=== PATIENT | female | born 1950 | race Caucasian/White ===

== ENCOUNTER 2016-09-27 10:11 | Outpatient (CLI) ==
[2015-02-17 15:50] VITALS: BMI 14.3
--- NOTE | 2016-09-27 14:22 | MRI ---
EXAM: MRI of the left knee without contrast COMPARISON: None available. HISTORY: Left knee pain. No known injury. TECHNIQUE: Multiplanar noncontrast MR images of the left knee were acquired using a 1.5 Zeny magne t. Several sequences are mildly limited by patient motion artifact. FINDINGS: There is intrasubstance degeneration of the medial meniscus. Overall diminished size of the medial meniscus with some blunting irregularity the free edge of the body through the posterior horn related to a tear with degenerative component. Flap component of the tear extending to the per ipheral portion of the extruded body with meniscal tissue extending 3 mm into the inferior recess. Intrasubstance degeneration without a tear involving the lateral meniscus. Scarring related to a chronic sprain of the anterior cruciate ligament with mild thinning of the fib ers are intact fibers are identified. Posterior cruciate ligament is intact. Sprain with scarring of the medial collateral ligament. The lateral collateral ligament complex and posterolateral corne r ligaments are intact. Mild distal quadriceps tendinosis. The patellar tendon is intact. No abno rmal subluxation of the patella. Subcutaneous edema anteriorly. Thinning of the medial patellar re tinaculum complex related to an old injury. Moderate thinning and irregularity of the cartilage of the trochlear groove within the patellofemora l compartment as well as moderate thinning of the patella with fibrillation along the median ridge. Full-thickness cartilage defects on both sides of the joint in the medial compartment. Thinning of the cartilage of the lateral tibial plateau most pronounced along the medial articular surface. No evidence of an acute fracture. Moderate sized joint effusion with thin internal septations througho ut the suprapatellar bursa. Edema involving Hoffa's fat pad suggesting nonspecific synovitis. Slit -like popliteal cyst. IMPRESSION: 1. Tricompartmental osteoarthrosis with most severe changes in the medial compartment. 2. Moderate joint effusion with synovitis, nonspecific. Consider aspiration if clinically warrante d. Slit-like popliteal cyst. 3. Complex tear of the medial meniscus with flap formation. Extrusion of the body related to loss of hoop containment. 4. Scarring related to a chronic sprain of the anterior cruciate ligament with mild thinning of the ligament fibers. Intact fibers are identified. Sprain with scarring of the medial collateral liga ment. 5. Mild distal quadriceps tendinosis. Subcutaneous edema anteriorly. Old injury of the medial pat ellar retinaculum complex.
== END 2016-09-27 10:12 | disposition home or self-care (01) ==
LOC: RAD 10:11
PROVIDERS: ATTEND Internal Medicine
DX: M25.562 Pain in left knee (principal)

== ENCOUNTER 2016-10-15 09:12 | Day surgery (SDC) ==
[2015-02-17 15:50] VITALS: BMI 14.3
[2016-10-15] MEDS ORDERED: LIDOCAINE 1% 20 ML MDV ONE (10:04)
[2016-10-15] MEDS ORDERED: LIDOCAINE 1% 20 ML MDV ID ONE (10:04)
[2016-10-15] MEDS ORDERED: DIPRIVAN 20 ML VIAL IVP ONE (11:20)
[2016-10-15] MEDS ORDERED: VERSED ONE (11:20)
[2016-10-15 12:45] VITALS: BP 120/62; TEMP 97.6
--- NOTE | 2016-10-16 12:48 | OP ---
INDICATIONS FOR PROCEDURE: 66-year-old female presents for colonoscopy exam. She has a remote history of polyps. Her brother had colon cancer before age 60. She is scheduled for colonoscopy. MEDICATIONS: SEE ANESTHESIA NOTES. PROCEDURE: COLONOSCOPY. REPORT: The risks, benefits, alternatives and limitations were discussed in detail with the patient. Informed consent was obtained. After adequate sedation was achieved, a digital rectal exam revealed good tone, no masses. The colonoscope was introduced into the rectum and advanced under direct visual guidance to the cecum. The cecum was identified by the appendiceal orifice and IC valve. I then slowly withdrew the scope in a circumferential manner examining the mucosa quite carefully. I looked on the proximal and distal side of folds and flexures as best as possible. I was able to retroflex the scope in the right colon and left colon to increase visualization. She had small and large mouth diverticula scattered throughout the entire colon. No other abnormalities noted including on retroflex view of the anal canal. The prep was good. The withdrawal time was 9 minutes and 20 seconds. The patient tolerated the procedure well with stable vital signs and pulse oximetry throughout. IMPRESSION: 1. PANIAGUA DIVERTICULOSIS RECOMMENDATION: 1. High fiber diet. 2. Office visit as needed. 3. Colonoscopy examination again in 5 years, sooner if she would have any signs or symptoms to indicate otherwise. CC: DR. JOSÉ LUIS WATERS
== END 2016-10-15 12:54 | disposition home or self-care (01) ==
LOC: SURG 09:12
PROVIDERS: ATTEND Internal Medicine Gastroenterology
DX: Z09 Encounter for follow-up examination after completed treatment for conditions other than malignant neoplasm (principal); Z86.010 Personal history of colon polyps; Z80.0 Family history of malignant neoplasm of digestive organs; K57.30 Diverticulosis of large intestine without perforation or abscess without bleeding; E11.9 Type 2 diabetes mellitus without complications
CPT/HCPCS: 00810; G0105; 82962

== ENCOUNTER 2017-04-28 12:07 | Inpatient (IN) ==
[2017-04-28] MEDS ORDERED: NITROSTAT SL PRN (12:20)
[2017-04-28] MEDS ORDERED: MORPHINE 4 MG/ML VIAL IVP PRN (12:20)
[2017-04-28] MEDS ORDERED: VISTARIL INJ IM PRN (12:20)
[2017-04-28] MEDS ORDERED: ATROPINE SULFATE PFS IVP PRN (12:20)
[2017-04-28] MEDS ORDERED: TYLENOL PO PRN (12:20)
[2017-04-28 13:05] LABS: BASOPHILS % (AUTO) 0.2 % (0.0-3.0); EOSINOPHILS # (AUTO) 0.3 K/ul (0.0-0.7); HEMATOCRIT 35.2 % (37.0-47.0); HEMOGLOBIN 11.9 g/dl (12.0-16.0); IMMATURE GRANULOCYTE % (AUTO) 0.3 % (0.0-5.0); LYMPHOCYTES # (AUTO) 1.5 K/uL (0.60-3.4); LYMPHOCYTES % (AUTO) 12.5 (10.0-50.0); MEAN CORPUSCULAR HEMOGLOBIN 30.1 pg (27.0-31.0); MEAN CORPUSCULAR HGB CONC 33.8 (31.8-35.4); MEAN CORPUSCULAR VOLUME 88.9 fl (81.0-99.0); MONOCYTES # (AUTO) 1.1 K/uL (0.4-2.0); MONOCYTES % (AUTO) 8.7 (0-10); NEUTROPHILS # (AUTO) 9.4 K/ul (2.0-6.9); NEUTROPHILS % (AUTO) 76.3; PLATELET COUNT 309 10^3/uL (140-440); RED BLOOD COUNT 3.96 10^6/ul (4.20-5.40); WHITE BLOOD COUNT 12.31 K/ul (4.6-10.2)
[2017-04-28 13:28] VITALS: BMI 29.0
[2017-04-28 13:35] LABS: ALBUMIN 3.4 g/dL (3.4-5.0); ALBUMIN/GLOBULIN RATIO 0.94; ANION GAP 13.1; BILIRUBIN,TOTAL 0.75 mg/dL (0.00-1.20); BUN/CREATININE RATIO 8.47; CALCIUM 9.7 mg/dL (8.2-10.2); CREATININE 1.77 mg/dL (0.60-1.30); POTASSIUM 3.1 mmol/L (3.5-5.10)
[2017-04-28] MEDS: DEXTROSE 5%-1/2NS IV SOLUTION 1,000 ML IV SCH (14:25)
[2017-04-28] MEDS: TORADOL IVP SCH ×2 (14:26→20:27)
[2017-04-28] MEDS: SOLU-CORTEF 250 MG IVP SCH ×2 (14:26→20:27)
[2017-04-28] MEDS: ZITHROMAX PO SCH (14:27)
[2017-04-28] MEDS: ROCEPHIN 1 GM in SODIUM CHLORIDE 50 ML IV SCH (14:29)
--- NOTE | 2017-04-28 14:50 | DI ---
EXAM: Chest two views HISTORY: Cough COMPARISON: 02/17/2015 TECHNIQUE: Two views of the chest were performed FINDINGS: The lungs are clear. There is no pleural effusion or pneumothorax. The heart is mildly e nlarged and unchanged in size. The mediastinal contour is normal. There are no acute abnormalities of the bones. IMPRESSION: Cardiomegaly. No acute cardiopulmonary process.
[2017-04-28] MEDS ORDERED: ULTRAM PO PRN (16:16)
[2017-04-28] MEDS: XOPENEX 1.25 MG NEB SCH ×2 (16:55→23:10)
[2017-04-28] MEDS: K-DUR PO SCH (17:14)
[2017-04-28 19:32] LABS: ADD URINE MICROSCOPIC NO; BILIRUBIN,URINE Negative (NEGATIVE); KETONES,URINE Negative (NEGATIVE); LEUKOCYTE ESTERASE ,URINE Negative (NEGATIVE); NITRITE,URINE Negative (NEGATIVE); PH,URINE 6.5 (5-9); PROTEIN,URINE Negative (NEGATIVE); URINE, BLOOD Negative (NEGATIVE)
[2017-04-28] MEDS: CARDIZEM PO SCH (20:28)
[2017-04-28] MEDS: CATAPRES PO SCH (20:28)
[2017-04-28] MEDS: ELIQUIS PO SCH (20:29)
[2017-04-28] MEDS ORDERED: NON-FORMULARY MEDICATION (Clonidine Hcl [Clonidine Hcl] 0.1 MG) PO SCH (21:00)
[2017-04-29] MEDS: DEXTROSE 5%-1/2NS IV SOLUTION 1,000 ML IV SCH ×2 (03:47→16:45)
[2017-04-29 04:42] LABS: BASOPHILS % (AUTO) 0.1 % (0.0-3.0); EOSINOPHILS % (AUTO) 0.1 % (0.0-7.0); HEMOGLOBIN 10.5 g/dl (12.0-16.0); IMMATURE GRANULOCYTE % (AUTO) 0.4 % (0.0-5.0); LYMPHOCYTES # (AUTO) 0.9 K/uL (0.60-3.4); LYMPHOCYTES % (AUTO) 8.1 (10.0-50.0); MEAN CORPUSCULAR HGB CONC 33.9 (31.8-35.4); MEAN CORPUSCULAR VOLUME 88.6 fl (81.0-99.0); MONOCYTES # (AUTO) 0.4 K/uL (0.4-2.0); MONOCYTES % (AUTO) 3.5 (0-10); NEUTROPHILS % (AUTO) 87.8; PLATELET COUNT 306 10^3/uL (140-440); WHITE BLOOD COUNT 11.37 K/ul (4.6-10.2)
[2017-04-29 05:03] LABS: ALBUMIN/GLOBULIN RATIO 0.91; ANION GAP 12.3; BILIRUBIN,TOTAL 0.32 mg/dL (0.00-1.20); BUN/CREATININE RATIO 10.32; CALCIUM 9.2 mg/dL (8.2-10.2); CREATININE 1.55 mg/dL (0.60-1.30); POTASSIUM 3.3 mmol/L (3.5-5.10); TOTAL PROTEIN 6.3 g/dL (5.8-8.1)
[2017-04-29] MEDS: XOPENEX 1.25 MG NEB SCH ×4 (05:35→23:07)
[2017-04-29] MEDS: TORADOL IVP SCH ×3 (05:50→20:15)
[2017-04-29] MEDS: PRILOSEC PO SCH (05:50)
[2017-04-29] MEDS: SOLU-CORTEF 250 MG IVP SCH ×3 (05:50→20:16)
[2017-04-29] MEDS ORDERED: NON-FORMULARY MEDICATION (Losartan/Hydrochlorothiazide [Hyzaar 100-25 Tablet] 1 EACH) PO SCH (09:00)
[2017-04-29] MEDS ORDERED: NON-FORMULARY MEDICATION (Paroxetine Hcl [Paxil] 30 MG) PO SCH ×22 (09:00)
[2017-04-29] MEDS: ROCEPHIN 1 GM in SODIUM CHLORIDE 50 ML IV SCH (09:14)
[2017-04-29] MEDS: HYZAAR 50-12.5 MG TAB PO SCH (09:14)
[2017-04-29] MEDS: LIPITOR PO SCH (09:14)
[2017-04-29] MEDS: CARDIZEM PO SCH ×2 (09:15→20:15)
[2017-04-29] MEDS: ZITHROMAX PO SCH (09:15)
[2017-04-29] MEDS: ASPIRIN EC PO SCH (09:15)
[2017-04-29] MEDS: CATAPRES PO SCH ×2 (09:15→20:15)
[2017-04-29] MEDS: KLONOPIN PO SCH (09:15)
[2017-04-29] MEDS: K-DUR PO SCH ×2 (09:15→16:45)
[2017-04-29] MEDS: ELIQUIS PO SCH ×2 (09:15→20:15)
[2017-04-29] MEDS: PAXIL PO SCH (09:16)
[2017-04-29] MEDS ORDERED: MILK OF MAGNESIA PO STA (09:24)
[2017-04-29] MEDS: XANAX PO SCH (20:15)
[2017-04-30] MEDS: XOPENEX 1.25 MG NEB SCH ×4 (05:16→22:26)
[2017-04-30 05:46] LABS: BASOPHILS % (AUTO) 0.1 % (0.0-3.0); HEMATOCRIT 29.1 % (37.0-47.0); IMMATURE GRANULOCYTE % (AUTO) 0.4 % (0.0-5.0); LYMPHOCYTES # (AUTO) 1.2 K/uL (0.60-3.4); LYMPHOCYTES % (AUTO) 7.5 (10.0-50.0); MEAN CORPUSCULAR HEMOGLOBIN 30.3 pg (27.0-31.0); MEAN CORPUSCULAR HGB CONC 34.4 (31.8-35.4); MEAN CORPUSCULAR VOLUME 88.2 fl (81.0-99.0); MONOCYTES # (AUTO) 0.5 K/uL (0.4-2.0); MONOCYTES % (AUTO) 3.2 (0-10); NEUTROPHILS # (AUTO) 13.9 K/ul (2.0-6.9); NEUTROPHILS % (AUTO) 88.8; PLATELET COUNT 317 10^3/uL (140-440); WHITE BLOOD COUNT 15.63 K/ul (4.6-10.2)
[2017-04-30] MEDS: SOLU-CORTEF 250 MG IVP SCH (05:46)
[2017-04-30] MEDS: PRILOSEC PO SCH (05:46)
[2017-04-30] MEDS: TORADOL IVP SCH ×3 (05:46→20:14)
[2017-04-30 06:18] LABS: ALBUMIN 2.9 g/dL (3.4-5.0); ALBUMIN/GLOBULIN RATIO 0.94; BILIRUBIN,TOTAL 0.18 mg/dL (0.00-1.20); BUN/CREATININE RATIO 14.15; CALCIUM 8.9 mg/dL (8.2-10.2); CREATININE 1.06 mg/dL (0.60-1.30)
[2017-04-30] MEDS: ROCEPHIN 1 GM in SODIUM CHLORIDE 50 ML IV SCH (08:51)
[2017-04-30] MEDS: CARDIZEM PO SCH ×2 (08:52→20:13)
[2017-04-30] MEDS: CATAPRES PO SCH ×2 (08:52→20:14)
[2017-04-30] MEDS: ASPIRIN EC PO SCH (08:52)
[2017-04-30] MEDS: ELIQUIS PO SCH ×2 (08:53→20:14)
[2017-04-30] MEDS: LIPITOR PO SCH (08:53)
[2017-04-30] MEDS: KLONOPIN PO SCH (08:53)
[2017-04-30] MEDS: K-DUR PO SCH ×5 (08:53→20:14)
[2017-04-30] MEDS: HYZAAR 50-12.5 MG TAB PO SCH (08:53)
[2017-04-30] MEDS: ZITHROMAX PO SCH (08:54)
[2017-04-30] MEDS: PAXIL PO SCH (08:54)
[2017-04-30 08:57] LABS: IMMATURE RETIC FRACTION 13.1; RETICULOCYTE % 2.75 %
[2017-04-30] MEDS: DEXTROSE 5%-1/2NS IV SOLUTION 1,000 ML IV SCH (09:50)
[2017-04-30 09:54] LABS: FERRITIN 98.99 ng/mL (4.63-204.00); FOLATE 13.1 ng/mL (3.1-20.5)
[2017-04-30] MEDS ORDERED: MYLANTA SUSP PO PRN (11:32)
--- NOTE | 2017-04-30 11:56 | PCM.PROG ---
Attending Provider: ATTENDING PROVIDER: Dr. CRISTINA ORDONEZ DATE OF SERVICE: 04/30/17 SUBJECTIVE: This 66 year old WHITE/ F was hospitalized 04/28/17. The patient is hospitalized with acute bronchitis/pneumonitis. Condition has improved remarkably and is feeling better. She still has harsh breath sounds with mild cough. REVIEW OF SYSTEMS: CONSTITUTIONAL: No night sweats. No fatigue, malaise, lethargy. No fever or chills. HEENT: Eyes: No visual changes. No eye pain. No eye discharge. ENT: No runny nose. No epistaxis. No sinus pain. No odynophagia. No congestion. RESPIRATORY: Mild cough and congestion. No hemoptysis. No shortness of breath. CARDIOVASCULAR: No angina symptoms. No CHF symptoms. No atypical chest pain for CAD. No palpitations. No orthopnea.. GASTROINTESTINAL: No abdominal pain. No nausea or vomiting. No diarrhea or constipation. No hematemesis. No hematochezia. GENITOURINARY: No urgency. No frequency. No dysuria. No hematuria. No obstructive symptoms. No discharge. No pain. No significant abnormal bleeding. MUSCULOSKELETAL: No musculoskeletal pain; no joint swelling. NEUROLOGICAL: Awake, alert, oriented to time, place and person. No headache. No neck pain. No syncope. No seizures. No dizziness. PSYCHIATRIC: Not anxious. No depression. No suicidal thoughts. No homicidal thoughts. SKIN: No rash. No lesions. No wounds. ENDOCRINE: No unexplained weight loss. No weight gain. HEMATOLOGIC/LYMPHATIC: No anemia. No purpura. No petechiae. No prolonged or excessive bleeding. No palpable lymph nodes. PHYSICAL EXAMINATION: GENERAL: The patient is awake, alert and oriented, lying in bed in no distress. VITAL SIGNS: Temperature 98.6 F, Pulse 53, Respiratory Rate 16, BP 133/67, Pulse Ox 99% HEENT: Head normocephalic, atraumatic. Eyes: Extraocular muscles are intact. Pupils are equal, round and reactive to light and accommodation. Ears: No lesions. Nose appeared normal. Throat: No exudate or erythema. NECK: Supple. No JVD, no carotid bruit. No lymphadenopathy or thyromegaly. LUNGS: Decreased breath sounds, harsh. Clear to auscultation. Percussion note normal. Chest symmetrical. HEART: S1, S2, no S3. No murmurs. No cyanosis or clubbing. No ascites. Pulses: Dorsalis pedis and posterior tibial pulses +1 to +2 both sides. ABDOMEN: Soft. Non-tender. Bowel sounds active. No CVA tenderness. No mass felt. EXTREMITIES: No edema. Full range of motion of all extremities, equal. NEUROLOGIC: No focal deficit. Cranial nerves II through XII are grossly intact. No headache, no double vision or headache. SKIN: Not dry. Intact. Turgor-normal. LYMPHATIC: No palpable lymph nodes/no lymphedema. MUSCULOSKELETAL: Normal joints with no swelling. Muscle tone is normal. LAB REVIEW: 04/30/17 04:15 04/30/17 04:15 04/30/17 04:15: Sodium 139, Potassium 3.0 L, Chloride 104, Carbon Dioxide 26, Anion Gap 12.0, BUN 15, Creatinine 1.06, Estimated GFR (MDRD) 52.00, BUN/ Creatinine Ratio 14.15, Glucose 161 H, Calcium 8.9, Total Bilirubin 0.18, AST 11 L, ALT 12, Alkaline Phosphatase 85, Total Protein 6.0, Albumin 2.9 L, Globulin 3.1, Albumin/Globulin Ratio 0.94 04/30/17 04:15: WBC 15.63 H, RBC 3.30 L, Hgb 10.0 L, Hct 29.1 L, MCV 88.2, MCH 30.3, MCHC 34.4, RDW Coeff of Zahraa 13.1, Plt Count 317, Immature Gran % (Auto) 0.4, Neut % (Auto) 88.8, Lymph % (Auto) 7.5 L, Bowman % (Auto) 3.2, Eos % (Auto) 0.0, Baso % (Auto) 0.1, Immature Gran # (Auto) 0.1, Neut # 13.9 H, Lymph # 1.2, Bowman # 0.5, Eos # 0.0, Baso # 0.0 ASSESSMENT: 1. Acute bronchitis/pneumonitis resolving 2. Dehydration resolved 3. Pleuritic pain resolved 4. Atrial fib paroxysmal 5. Anemia 6. Left breast cancer with mastectomy PLAN: 1. Continue antibiotics 2. Nebs treatment 3. Anemia profile 4. A1C 5. Hyperglycemia is from steroids 6. Increase potassium to q.i.d. and will change back tomorrow -20 mEq q.i.d. 7. D/C fluids IV 8. D/C IV steroids 9. Prednisone 10 mg p.o. b.i.d. . Plan and coordination of the patient's care discussed in the presence of Die Sinking Machine Operator and nurse. CONDITION: Stable SCRIBED BY: DEMETRI GONZALES Cable Weaver scribed while in presence of service performed by Dr. CRISTINA ORDONEZ on 04/30/17 ([id number])
[2017-04-30] MEDS: PREDNISONE PO SCH ×2 (13:07→17:17)
[2017-04-30] MEDS: XANAX PO SCH (20:13)
[2017-05-01 04:27] LABS: BASOPHILS % (AUTO) 0.1 % (0.0-3.0); HEMATOCRIT 29.8 % (37.0-47.0); HEMOGLOBIN 10.2 g/dl (12.0-16.0); IMMATURE GRANULOCYTE % (AUTO) 0.9 % (0.0-5.0); LYMPHOCYTES # (AUTO) 1.4 K/uL (0.60-3.4); LYMPHOCYTES % (AUTO) 9.6 (10.0-50.0); MEAN CORPUSCULAR HEMOGLOBIN 30.5 pg (27.0-31.0); MEAN CORPUSCULAR HGB CONC 34.2 (31.8-35.4); MEAN CORPUSCULAR VOLUME 89.2 fl (81.0-99.0); MONOCYTES # (AUTO) 0.6 K/uL (0.4-2.0); MONOCYTES % (AUTO) 4.4 (0-10); NEUTROPHILS # (AUTO) 12.4 K/ul (2.0-6.9); PLATELET COUNT 327 10^3/uL (140-440); RED BLOOD COUNT 3.34 10^6/ul (4.20-5.40); WHITE BLOOD COUNT 14.56 K/ul (4.6-10.2)
[2017-05-01 04:48] LABS: ALBUMIN/GLOBULIN RATIO 0.97; ANION GAP 10.9; BILIRUBIN,TOTAL 0.2 mg/dL (0.00-1.20); BUN/CREATININE RATIO 17.2; CALCIUM 9.1 mg/dL (8.2-10.2); CREATININE 0.93 mg/dL (0.60-1.30); POTASSIUM 3.9 mmol/L (3.5-5.10); TOTAL PROTEIN 6.1 g/dL (5.8-8.1)
[2017-05-01] MEDS: XOPENEX 1.25 MG NEB SCH ×2 (05:00→11:14)
[2017-05-01 05:07] VITALS: BP 153/90; TEMP 97.9
[2017-05-01] MEDS: PRILOSEC PO SCH (05:32)
[2017-05-01] MEDS: TORADOL IVP SCH (05:33)
[2017-05-01] MEDS: PREDNISONE PO SCH (08:29)
[2017-05-01] MEDS: ASPIRIN EC PO SCH (08:29)
[2017-05-01] MEDS: CARDIZEM PO SCH (08:29)
[2017-05-01] MEDS: CATAPRES PO SCH (08:29)
[2017-05-01] MEDS: ELIQUIS PO SCH (08:30)
[2017-05-01] MEDS: HYZAAR 50-12.5 MG TAB PO SCH (08:30)
[2017-05-01] MEDS: K-DUR PO SCH (08:31)
[2017-05-01] MEDS: KLONOPIN PO SCH (08:31)
[2017-05-01] MEDS: PAXIL PO SCH (08:31)
[2017-05-01] MEDS: LIPITOR PO SCH (08:31)
[2017-05-01] MEDS: ROCEPHIN 1 GM in SODIUM CHLORIDE 50 ML IV SCH (09:00)
--- NOTE | 2017-05-01 10:25 | PN ---
DATE OF SERVICE: 05/01/17 SUBJECTIVE: The patient was hospitalized with acute bronchitis, chronic lung disease and the patient also has atrial fibrillation. The patient's condition has improved to the point where she isn't coughing anymore. PHYSICAL EXAMINATION: HEENT: Head normocephalic, atraumatic. Eyes: Extraocular muscles are intact. Pupils are equal, round and reactive to light and accommodation. Ears: No lesions. Nose appeared normal. Throat: No exudate or erythema. NECK: Supple. No JVD, no carotid bruit. No lymphadenopathy or thyromegaly. LUNGS: Breath sounds are decreased bilaterally but no wheeze. Percussion note normal. Chest symmetrical. HEART: S1, S2, no S3. No murmurs. No cyanosis or clubbing. No ascites. Pulses: Dorsalis pedis and posterior tibial pulses +1 to +2 both sides. ABDOMEN: Soft. Nontender. Bowel sounds active. No CVA tenderness. No mass felt. EXTREMITIES: No edema. Full range of motion of all extremities, equal. NEUROLOGIC: No focal deficit. Cranial nerves II through XII are grossly intact. No headache, no double vision or headache. SKIN: Not dry. Intact. Turgor - normal. LYMPHATIC: No palpable lymph nodes/no lymphedema. MUSCULOSKELETAL: Normal joints with no swelling. Muscle tone is normal. LABS: The patient had an echocardiogram done 2DM mode showed LA cavity enlargement to 4.3cm otherwise the rest of the echo was normal. ASSESSMENT: 1. Acute bronchitis/pneumonia seems to have resolved PLAN: 1. Discharge home on Keflex, steroids and Tussionex 2. Advised to rest 3. Discussed about atrial fibrillation complications. She has been on Norvel blood thinners for a while. 4. The patient will be referred to Dr. Stacy at [facility] for further evaluation. CONDITION: Stable. TIME SPENT: More than 30 minutes. Plan and coordination of the patient's care discussed in the presence of nurse. EVELIN
--- NOTE | 2017-05-01 11:07 | CM.DICTOOL ---
ADMISSION: 04/28/17 12:07 DISCHARGE: May 01, 2017 DATE OF SERVICE: 05/01/17 FINAL DIAGNOSIS Acute Bronchitis/Pneumonitis, Right Pleuritic Chest Pain Hypertension Atrial Fibrillation, Paroxysmal (on Eliquis since 2014) CHF Dyslipidemia Dieverticulosis Cancer, Left Breast with Mastectomy Enlarged Left Atrial Cavity per Echocardiogram LAST VITALS Temp Pulse Resp BP Pulse Ox 97.9 F 60 16 153/90 H 95 05/01/17 05:07 05/01/17 05:07 05/01/17 05:07 05/01/17 05:07 05/01/17 05:07 ACTIVE HOME MEDICATIONS Apixaban (Eliquis) 5 mg PO BID [facility] Last Admin: 05/01/17 08:30 Dose: 5 mg Atorvastatin Calcium (Lipitor) 40 mg PO DAILY [facility] Last Admin: 05/01/17 08:31 Dose: 40 mg Clonazepam (Klonopin) 0.5 mg PO DAILY [facility] Last Admin: 05/01/17 08:31 Dose: 0.5 mg Clonidine (Catapres) 0.1 mg PO BID [facility] Last Admin: 05/01/17 08:29 Dose: 0.1 mg Diltiazem HCl (Cardizem) 120 mg PO Q12HR [facility] Last Admin: 05/01/17 08:29 Dose: 120 mg HCTZ/Losartan Potassium (Hyzaar 50-12.5 Mg Tab) 2 tab PO DAILY [facility] Last Admin: 05/01/17 08:30 Dose: 2 tab Omeprazole (Prilosec) 20 mg PO QDAC [facility] Last Admin: 05/01/17 05:32 Dose: 20 mg Paroxetine HCl (Paxil) 30 mg PO DAILY [facility] Last Admin: 05/01/17 08:31 Dose: 30 mg Tramadol HCl (Ultram) 50 mg PO BID PRN PRN Reason: pain ALLERGIES amlodipine besylate [From [facility]] Adverse Reaction (Mild, Verified 02/17/15 15: 44) worsening HTN verapamil Adverse Reaction (Mild, Verified 02/17/15 15:43) worsening HTN NEW PRESCRIPTIONS: Keflex 500 mg TID for 7 days Prednisone 10 mg BID for 5 days Tussionex 5ml (1 tsp) BID for 5 days SMOKING: Not Applicable DISEASE SPECIFIC EDUCATION: Bronchitis Short term use of steroids with GI effects, bone demineralization discussed Prescriptions Appointment LAB REVIEW: 05/01/17 03:50 05/01/17 03:50 05/01/17 03:50: Sodium 140, Potassium 3.9, Chloride 106, Carbon Dioxide 27, Anion Gap 10.9, BUN 16, Creatinine 0.93, Estimated GFR (MDRD) 60.00, BUN/ Creatinine Ratio 17.20, Glucose 140 H, Calcium 9.1, Total Bilirubin 0.20, AST 13 L, ALT 14, Alkaline Phosphatase 82, Total Protein 6.1, Albumin 3.0 L, Globulin 3.1, Albumin/Globulin Ratio 0.97 05/01/17 03:50: WBC 14.56 H, RBC 3.34 L, Hgb 10.2 L, Hct 29.8 L, MCV 89.2, MCH 30.5, MCHC 34.2, RDW Coeff of Zahraa 13.3, Plt Count 327, Immature Gran % (Auto) 0.9, Neut % (Auto) 85.0, Lymph % (Auto) 9.6 L, Henry % (Auto) 4.4, Eos % (Auto) 0.0, Baso % (Auto) 0.1, Immature Gran # (Auto) 0.1, Neut # 12.4 H, Lymph # 1.4, Henry # 0.6, Eos # 0.0, Baso # 0.0 04/30/17 08:40: Transferrin 241 PLAN: Discharge home Diet: Heart Healthy Activity: Gradually Resume as tolerated Allow for frequent rest periods Continue medications as listed on nursing discharge information sheet An appointment is scheduled with Dr. Bajwa on May 07 at 1:15 pm. Mrs. Saldivar is alert and oriented x 3. She is independent with Activities of Daily Living and does not require any assistive devices with ambulation. She is ambulatory per self in the room and to the bathroom. Meal intakes have been good at 75-100%. She has been afebrile during her hospital stay. Oxygen saturation 95% on room air. Mrs. Saldivar does not show any signs of decubitus ulcers, rashes or skin irritation. Carlos Bajwa MD Lisa Swift APRN
--- NOTE | 2017-05-01 14:31 | PN ---
DATE OF SERVICE: 04/29/17 SUBJECTIVE: 66 year old white female hospitalized with acute bronchitis and pneumonitis. The patient's condition has steadily improved. She is still coughing and has got a croupy cough. REVIEW OF SYSTEMS: CONSTITUTIONAL: No night sweats. No fatigue, malaise, lethargy. No fever or chills. HEENT: Eyes: No visual changes. No eye pain. No eye discharge. ENT: No runny nose. No epistaxis. No sinus pain. No sore throat. No odynophagia. No congestion. RESPIRATORY: Cough and congestion. No hemoptysis. No shortness of breath. CARDIOVASCULAR: No angina symptoms. No CHF symptoms. No atypical chest pain for CAD. No palpitations. No orthopnea. Mild pleuritic pain. GASTROINTESTINAL: No abdominal pain. No nausea or vomiting. No diarrhea or constipation. No hematemesis. No hematochezia. GENITOURINARY: No urgency. No frequency. No dysuria. No hematuria. No obstructive symptoms. No discharge. No pain. No significant abnormal bleeding. MUSCULOSKELETAL: No musculoskeletal pain; no joint swelling. NEUROLOGICAL: No headache. No neck pain. No syncope. No seizures. No dizziness. PSYCHIATRIC: Not anxious. No depression. No suicidal thoughts. No homicidal thoughts. SKIN: No rash. No lesions. No wounds. ENDOCRINE: No unexplained weight loss. No weight gain. HEMATOLOGIC/LYMPHATIC: No anemia. No purpura. No petechiae. No prolonged or excessive bleeding. No palpable lymph nodes. PHYSICAL EXAMINATION: GENERAL: The patient is oriented to time, place and person VITAL SIGNS: Temperature 97.5, pulse 60,. respiratory rate 20, blood pressure 106/60 and pulse ox 98%. HEENT: Head normocephalic, atraumatic. Eyes: Extraocular muscles are intact. Pupils are equal, round and reactive to light and accommodation. Ears: No lesions. Nose appeared normal. Throat: No exudate or erythema. NECK: Supple. No JVD, no carotid bruit. No lymphadenopathy or thyromegaly. LUNGS: Mild wheeze. Clear to auscultation. Percussion note normal. Chest symmetrical. HEART: S1, S2, no S3. No murmurs. No cyanosis or clubbing. No ascites. Pulses: Dorsalis pedis and posterior tibial pulses +1 to +2 both sides. ABDOMEN: Soft. Nontender. Bowel sounds active. No CVA tenderness. No mass felt. EXTREMITIES: No edema. Full range of motion of all extremities, equal. NEUROLOGIC: No focal deficit. Cranial nerves II through XII are grossly intact. No headache, no double vision or headache. SKIN: Not dry. Intact. Turgor - normal. LYMPHATIC: No palpable lymph nodes/no lymphedema. MUSCULOSKELETAL: Normal joints with no swelling. Muscle tone is normal. ASSESSMENT: 1. Acute bronchitis 2. Paroxysmal atrial fibrillation 3. Hyperglycemia 4. Anemia PLAN: 1. Continue steroids, NEBS treatment and Antibiotics 2. The patient may need an echocardiogram to evaluate Cardiomegaly and also atrial fibrillation. 3. Anemia may need a work up. CONDITION: Stable The patient was seen and examined with Nurse Practitioner and Core Filer TIME SPENT: More than 30 minutes. Plan and coordination of the patient's care discussed in the presence of nurse. EVELIN
--- NOTE | 2017-05-02 12:02 | ECHO2D ---
Date of Exam: 05/01/17 Ordering Physician: CRISTINA ORDONEZ Room #: 110 Reason for Echo: CHEST PAIN M-Mode Normal Adult Results LV Dimensions Normal Adult Results AoV Opening excursions >1.6 >1.6 LVEDD-base- 3.5-5.8 5.4 Ao root dimensions 2.0-3.7 3.3 LVESD-base- 3.1-4.6 L. Atrium dimensions 1.9-3.8 4.2 Post. Wall thickness 0.8-1.1 1.2 IV septum (thickness) 0.7-1.2 1.0 Post. Wall excursion 0.72-1.3 NORMAL Septal motion NORMAL Systolic motion R. Ventricular cavity 1.5-2.0 NORMAL LVEF 60% 59% Paradoxical septal wall motion NORMAL 2-D : 2-D M Mode Echocardiogram was performed using apical four chamber and left parasternal long and short axis views. Mitral, tricuspid and aortic valves appear to be normal. Contractility of the left ventricle seems to be normal, so is the cavity size. Enlarged Left atrial cavity. Aortic root appears to be normal. There is no pericardial effusion. There is no thrombus noted in the left ventricular or left aortic cavity. No mitral valve prolapse noted. M-MODE: MV: NORMAL AV: NORMAL TV: NORMAL PV: CHAMBER SIZE: ENLARGED LEFT ATRIAL CAVITY WALL MOTION: NORMAL PERICARDIUM: NORMAL INTERPRETATION: 1. ENLARGED LEFT ATRIAL CAVITY--4.2 CM SIZE 2. NORMAL LEFT VENTRICULAR CONTRACTILITY 3. NORMAL VALVES MTDD
--- NOTE | 2017-05-02 13:37 | HP ---
DATE OF SERVICE: 04/28/17 HISTORY OF PRESENT ILLNESS: This is a 66-year-old female who was seen here on 04/16 with bronchitis Now she has pain and weakness, poor appetite, low grade temperature at home. She was treated with Keflex, Prednisone. No change with worsening of symptoms. PAST MEDICAL HISTORY: Atrial fibrillation CAD with LAD CHF DM II FATOU Depression History of breast cancer, left MENSTRUAL HISTORY: 1973 PAST SURGICAL HISTORY: Left breast (cancer) mastectomy T & A Hysterectomy REVIEW OF SYSTEMS: CONSTITUTIONAL: Fatigue. No fever, HEENT: Sinus drainage No sore throat. RESPIRATORY: Cough, No hemoptysis. CARDIOVASCULAR: Shortness of breath on minimal exertion.. Pleuritic pain. No atypical chest pain for coronary artery disease. No angina, CHF symptoms or palpitations. GASTROINTESTINAL: No melena or abdominal pain. No GERD. GENITOURINARY: No hematuria, no polyuria. SYSTEM PLANNING ENGINEER: No blackout, no dizziness, no headache, no double vision. MUSCULOSKELETAL: No osteoarthritis pain, no joint swelling. ENDOCRINE: No weight loss, no weight gain. SKIN: Warm and dry. No rash. PSYCHIATRIC: Not anxious, no depression, no suicidal thoughts, no homicidal thoughts. SOCIAL HISTORY: 46 years. children: 2 girls ages 47, 45. Retired. No drug use history. No smoking history. No alcohol use. FAMILY HISTORY: Father CAD, mother TIA, brother (6) three - one of colon cancer, 2nd of lung cancer, 3rd (baby) Scarlet fever, three living CAD and diabetes mellitus. Sisters (5) two - Alzheimer's, overdose. Three living Alzheimer's, hypertension, TIA. MEDICATIONS: Klonopin 0.5 mg daily Paxil 30 mg daily Eliquis 5 mg b.i.d. Diltiazem 60 mg b.i.d. Losartan/HCTZ 100/25 daily Clonidine 0.2 mg b.i.d. Atorvastatin 40 mg daily Tramadol 50 mg b.i.d. Omeprazole 20 mg b.i.d ALLERGIES: VERAPAMIL, NORVASC PHYSICAL EXAMINATION: V/S: Temperature 98.8, pulse 65, BP 118/66, 02 sat 94%, Weight 169.0, height 5' 3", BMI 29.9. GENERAL APPEARANCE: Oriented times three. Pallor positive. Weakness. Dry skin. HEENT: Normal. NECK: No JVP, no bruits. RESPIRATORY: Decreased breath sounds bilateral rhonchi with green sputum. CARDIOVASCULAR: Irregular. S1, S2, no S3, no murmurs. No cyanosis, clubbing. No ascites. GI/ABDOMEN: No tenderness. Bowel sounds are active. EXTREMITIES: No edema, pulses +1, equal. SYSTEM PLANNING ENGINEER: Deep tendon reflexes, sensory, motor and gait all normal. RECTAL/PELVIC: Colonoscopy 10/07 Dr. Chavez. Partial hysterectomy. Mammogram - left mastectomy, 09/06 right ultrasound. LABS: Potassium 3.1. The patient is already on supplements now for low potassium. Creatinine 1.7, BUN 15 indicating dehydration and chronic kidney disease. Liver profile is normal. Sodium 139, hemoglobin 11.9, hematocrit 35, WBC 12,300 with shift to the left. ASSESSMENT: 1. ACUTE BRONCHITIS/PNEUMONITIS (RIGHT) 2. PLEURITIC PAIN, BILATERAL 3. FEVER 4. ATRIAL FIBRILLATION ON ELIQUIS 5. CAD WITH LAD 6. CHF 7. DIABETES MELLITUS TYPE 2 WITH A1C 6.1 ON 02/06 8. OBESITY 9. FATOU 10. DEPRESSION 11. HISTORY OF BREAST CANCER, LEFT PLAN: 1. Continue all medications 2. Toradol 30 mg IV q.8h scheduled 3. Rocephin 1 gm IV daily 4. Routine telemetry orders - do not do troponin 5. CBC/CMP daily 6. Chest x-ray 7. Zithromax 500 mg p.o. daily times 3 days 8. Solu-Cortef 125 mg IV q.8h 9. Xopenex neb times q.6hr scheduled 10. Sputum for culture and sensitivity 11. D5 1/2 NS @ 75 cc/hr 12. Blood culture times two TIME SPENT: More than 70 minutes. MTDD
[2017-05-05 19:22] LABS: BACT ID RESULT 1 Micrococcus species (.); BACTERIA IDENTIFICATION Final report (.)
--- NOTE | 2017-05-06 09:23 | PN ---
DATE OF SERVICE: 05/01/17 - DISCHARGE NOTE SUBJECTIVE: The patient's condition is stable. She is discharged home. The patient had one out of four bottles positive with gram positive cocci. The patient is afebrile throughout. No fever, no chills. Sensitivity is still pending, I think it is colonization, will not disregard. The patient is to be followed as an outpatient in 3 to 4 days. Condition is stable. TIME SPENT: More than 30 minutes. Plan and coordination of the patient's care discussed in the presence of nurse. EVELIN
--- NOTE | 2017-05-09 15:50 | DS ---
DATE OF SERVICE: 05/01/17 FINAL DIAGNOSIS: 1. ACUTE BRONCHITIS/PNEUMONIA, RIGHT 2. PLEURITIC CHEST PAIN 3. HYPERTENSION 4. ATRIAL FIBRILLATION, PAROXYSMAL (ON ELIQUIS SINCE 2014) 5. CHF 6. DYSLIPIDEMIA 7. DIVERTICULOSIS 8. CANCER, LEFT BREAST WITH MASTECTOMY 9. ENLARGED LEFT ATRIAL CAVITY PER ECHOCARDIOGRAM DISCHARGE INSTRUCTIONS: Followup appointment: Dr. Bajwa on 05/07/17 at 1:15 p.m. MEDICATIONS AT DISCHARGE: Eliquis 5 mg p.o. b.i.d. [place] Lipitor 40 mg p.o. daily [place] Klonopin 0.5 mg p.o. daily [place] Catapres 0.1 mg p.o. b.i.d. [place] Cardizem 120 mg p.o. q.12h [place] Hyzaar 50-12.5 mg two tab p.o. daily [place] Prilosec 20 mg p.o. q.d a.c. [place] Paxil 30 mg p.o. daily Ultram 50 mg p.o. b.i.d. p.r.n. NEW PRESCRIPTIONS: Keflex 500 mg t.i.d. for 7 days Prednisone 10 mg b.i.d. for 5 days Tussionex 5 mL b.i.d. for 5 days DIET INSTRUCTIONS: Heart Healthy ACTIVITY: Gradually resume as tolerated; allow for frequent rest periods. SMOKING: N/A DISEASE SPECIFIC EDUCATION: Bronchitis Short term use of steroids with GI effects, bone dimineralization discussed Prescriptions Appointment HOSPITAL COURSE: This is a 66-year-old white female who was a direct admit from our office. She had been in the office approximately 10 days before and taking Keflex and Prednisone. She was experiencing a worsening cough yet still and now she was having pain radiating on her right side of chest through to her back. She had had a low grade fever at home, temperature highest of 100. She was subsequently admitted and placed on IV antibiotics. She was placed on Rocephin 1 gm IV daily along with Solu-Cortef 125 mg b.i.d. She was started on Xopenex neb treatments q.6hr and placed on Toradol 30 mg IV q.8hr due to pain. Her chest x-ray showed no pneumonia; however, bronchitis along with mild cardiomegaly so during the course of her stay, Dr. Bajwa performed an echo this morning before discharge. Her vital signs have remained stable. Temperature 97.9, heart rate 60, respirations 16, BP 150/88, today pulse ox 95%. She has been eating well and afebrile since admission. She states her cough is much better. She is no longer in any pain. She is not short of breath. She does have a history of anemia which has remained stable during her stay. Today on day of discharge hemoglobin 10.2, hematocrit 29.8, white count improved at 14.56. Kidney function normal. BUN 16, creatinine 0.93, sodium 140, potassium 3.9. For the past two days she has been eating 75 to 100% of her meals. She has been up and about in her chair. Her sputum culture was negative. UA was negative. Telemetry has been normal. She will be discharged home today with Keflex 500 mg t.i.d. for the next five days along with Prednisone 10 mg b.i.d. for the next five days. We will followup with her early next week in the office. TIME SPENT: More than 60 minutes. EVELIN
== END 2017-05-01 11:58 | disposition home or self-care (01) | DRG 202 ==
LOC: MEDSURG A 12:07
PROVIDERS: ADMIT Internal Medicine; ATTEND Internal Medicine
DX: J20.9 Acute bronchitis, unspecified (principal); R78.81 Bacteremia; R07.81 Pleurodynia; I10 Essential (primary) hypertension; I48.0 Paroxysmal atrial fibrillation; I50.9 Heart failure, unspecified; I51.7 Cardiomegaly; D64.9 Anemia, unspecified; E78.5 Hyperlipidemia, unspecified; K57.90 Diverticulosis of intestine, part unspecified, without perforation or abscess without bleeding; R73.9 Hyperglycemia, unspecified; Z79.01 Long term (current) use of anticoagulants; Z85.3 Personal history of malignant neoplasm of breast; Z90.12 Acquired absence of left breast and nipple
CPT/HCPCS: 36415; 80053; 81001; 82607; 82728; 82746; 83036; 83540; 83550; 84466; 85025; 85045; 87040; 87070; 87077; 87186; 93005; 93010; 94640

== ENCOUNTER 2017-10-08 12:25 | Inpatient (IN) ==
--- NOTE | 2017-10-08 14:15 | DI ---
EXAM: PA and lateral views of the chest HISTORY: Cough. COMPARISON: Chest x-ray 04/28/2017 FINDINGS: The cardiomediastinal silhouette is unchanged. There is no pneumothorax or pleural effusi on. There is new linear smudgy ground-glass in the left lateral mid lung. There is no discrete cons olidation. The osseous structures are stable. IMPRESSION: 1. Smudgy area of ground-glass in the lateral left lung likely representing focal area of small airw ays infection/pneumonia versus inflammation. 2. Stable cardiomegaly.
[2017-10-08] MEDS ORDERED: SOLU-MEDROL 125 MG IVP STA (14:24)
[2017-10-08] MEDS ORDERED: SOLU-CORTEF 250 MG IVP STA (14:25)
[2017-10-08] MEDS ORDERED: ROCEPHIN 1 GM in SODIUM CHLORIDE 50 ML IV STA (14:26)
[2017-10-08] MEDS ORDERED: ZITHROMAX 500 MG in SODIUM CHLORIDE 250 ML IV STA (14:27)
[2017-10-08] MEDS ORDERED: DEXTROSE 5%-NS IV SOLUTION 1,000 ML IV STA (14:28)
--- NOTE | 2017-10-08 14:30 | ED.PDOC ---
General ED Provider: Dr. ISH SALAZAR Chief Complaint: Weakness Stated Complaint: WEAKNESS/ NEAR SYNCOPE AT MD OFFICE Time Seen by Physician: 12:30 Mode of Arrival: Wheelchair Information Source: Patient Exam Limitations: No limitations Primary Care Provider: CRISTINA ORDONEZ Nursing and Triage Documentation Reviewed and Agree: Yes Reviewed sepsis parameters & appropriate labs ordered?: Yes (NO SYNCOPE NOTED BY HISTORY BUT BECAME WEAK ) System Inflammatory Response Syndrome: Not Applicable Sepsis Protocol: For patient's 13 years and over: Temp is 96.8 and below OR 101 and greater Pulse >90 BPM Resp >20/minute Acutely Altered Mental Status Are patient's symptoms suggestive of a new infection, such as: -Pneumonia -Skin, Soft Tissue -Endocarditis -UTI -Bone, Joint Infection -Implantable Device -Acute Abdominal Infection -Wound Infection -Meningitis -Blood Stream Catheter Infection -Unknown System Inflammatory Response Syndrome: Not Applicable Review of Systems - Review Of Systems Constitutional: Reports: Malaise, Weakness Eyes: Reports: No symptoms Ears, Nose, Mouth, Throat: Reports: No symptoms Respiratory: Reports: No symptoms Cardiac: Reports: Other (NEAR SYNCOPE) GI: Reports: No symptoms : Reports: No symptoms Musculoskeletal: Reports: No symptoms Skin: Reports: No symptoms Neurological: Reports: No symptoms Endocrine: Reports: No symptoms Hematologic/Lymphatic: Reports: No symptoms All Other Systems: Reviewed and Negative Past Medical History - Past Medical History Previously Healthy: No Endocrine: Reports: Dyslipidemia Cardiovascular: Reports: Hypertension Respiratory: Reports: None Hematological: Reports: None Gastrointestinal: Reports: GERD Genitourinary: Reports: None Neuro/Psych: Reports: None Musculoskeletal: Reports: None Cancer: Reports: None Last Menstrual Period: menopause - Surgical History General Surgical History: Reports: None - Family History Family History: Reports: None - Social History Smoking Status: Never smoker Hx Substance Use: No Alcohol Screening: None Physical Exam - Physical Exam Appearance: Ill-appearing Ill-appearing: Mild Eyes: JIM, EOMI, Conjunctiva clear ENT: Dry mucosa Respiratory: Airway patent, Breath sounds clear, Breath sounds equal, Respirations nonlabored Cardiovascular: RRR, Pulses normal, No rub, No murmur GI/: Soft, Nontender, No masses, Bowel sounds normal, No Organomegaly Musculoskeletal: Normal strength, ROM intact, No edema, No calf tenderness Skin: Warm, Dry, Normal color Neurological: Sensation intact, Motor intact, Reflexes intact, Cranial nerves intact, Alert, Oriented Psychiatric: Affect appropriate, Mood appropriate Interpretation - Radiology Interpretation Radiology Interpretation By: Radiologist Radiology Results: No acute changes Exam Interpreted: CT Scan - Tilt Wall Supervisor Rate: Normal Rhythm: Sinus Ectopy: PVCs (TRIGANIMAL PATTERN ) - EKG Interpretation Rate: Normal Rhythm: Sinus Ectopy: PVCs [place]: Left ST Segment: Other (LAFB, 1ST DGREE BLOCK) Physician Notification - Case Discussed Physician Notified: PMD Time of Notification: 14:31 Admit To: Inpatient Critical Care Note - Critical Care Note Total Time (mins): 0 Course - Course Hematology/Chemistry: 10/08/17 13:00 10/08/17 13:00 Orders, Labs, Meds: Lab Review 10/08/17 10/08/17 10/08/17 13:00 13:00 13:40 WBC 7.14 RBC 3.99 L Hgb 12.1 Hct 35.5 L MCV 89.0 MCH 30.3 MCHC 34.1 RDW Coeff of Zahraa 13.9 Plt Count 172 Immature Gran % (Auto) 0.3 Neut % (Auto) 79.8 Lymph % (Auto) 12.0 [place] % (Auto) 7.8 Eos % (Auto) 0.0 Baso % (Auto) 0.1 Immature Gran # (Auto) 0.0 Neut # (Auto) 5.7 Lymph # (Auto) 0.9 [place] # (Auto) 0.6 Eos # (Auto) 0.0 Baso # (Auto) 0.0 Puncture Site R rad O2 Saturation 96.0 ABG pH 7.532 H* ABG pCO2 33.3 L ABG pO2 72.0 L ABG HCO3 28.0 H ABG Total CO2 29 H ABG Base Excess 5 H Tee Test + FiO2 % 21.0 Sodium 134 L Potassium 3.5 Chloride 95 L Carbon Dioxide 27 Anion Gap 15.5 BUN 8 Creatinine 0.89 Estimated GFR (MDRD) 63.00 BUN/Creatinine Ratio 8.98 Glucose 110 Calcium 8.8 Total Bilirubin 0.4 AST 16 ALT 18 Alkaline Phosphatase 63 Total Creatine Kinase 38 Troponin I 0.2010 Total Protein 5.9 Albumin 3.2 L Globulin 2.7 Albumin/Globulin Ratio 1.19 Orders Category Date Time Status ABG DRAW REQUEST Stat CARDIO 10/08/17 13:33 Completed EKG-(ED ONLY) Stat CARDIO 10/08/17 12:52 Completed ABG Stat LAB 10/08/17 13:40 Completed CBC W/ AUTO DIFF Stat LAB 10/08/17 13:00 Completed COMPREHENSIVE METABOLIC PANEL Stat LAB 10/08/17 13:00 Completed CREATINE KINASE Stat LAB 10/08/17 13:00 Completed TROPONIN I Stat LAB 10/08/17 13:00 Completed CHEST, 2 VIEWS PA & LAT Stat RADS 10/08/17 13:32 Completed Vital Signs: Temp Pulse Resp BP Pulse Ox 10/08/17 12:25 97.1 F L 81 16 105/70 91 L Departure - Departure Time of Disposition: 14:31 Disposition: ADMITTED INPATIENT Discharge Problem: Weakness, Near syncope Instructions: Syncope (ED) Condition: Good Pt referred to PMD for follow-up: Yes IPMP verified?: No Allergies/Adverse Reactions: Allergies amlodipine besylate [From [facility]] Adverse Reaction (Mild, Verified 02/17/15 15: 44) worsening HTN verapamil Adverse Reaction (Mild, Verified 02/17/15 15:43) worsening HTN Home Medications: Ambulatory Orders Atorvastatin Calcium [Lipitor] 40 mg PO DAILY 02/17/15 Omeprazole [Prilosec] 20 mg PO DAILY 02/17/15 Paroxetine HCl [Paxil] 30 mg PO DAILY 02/17/15 Tramadol HCl 50 mg PO BID PRN 02/17/15 Apixaban [Eliquis] 5 mg PO BID #60 tablet 02/22/15 Losartan/Hydrochlorothiazide [Hyzaar 100-25 Tablet] 1 each PO DAILY #30 tablet 02/22/15 Clonazepam 0.5 mg PO DAILY 10/15/16 Clonidine HCl 0.1 mg PO BID 10/15/16 Diltiazem HCl [Cardizem] 120 mg PO Q12HR 10/15/16 Disposition Discussed With: Patient
[2017-10-08] MEDS ORDERED: ROCEPHIN ONE (14:49)
[2017-10-08 15:40] VITALS: BMI 28.7
[2017-10-08] MEDS: XOPENEX 1.25 MG NEB SCH ×2 (17:05→23:31)
[2017-10-08] MEDS ORDERED: DUONEB NEB SCH (18:00)
[2017-10-08] MEDS ORDERED: NON-FORMULARY MEDICATION (Clonidine Hcl [Clonidine Hcl] 0.1 MG) PO SCH (21:00)
[2017-10-08] MEDS: SOLU-MEDROL 40 MG IVP SCH (21:02)
[2017-10-08] MEDS: CATAPRES PO SCH (21:02)
[2017-10-08] MEDS: CARDIZEM PO SCH (21:02)
[2017-10-08] MEDS: ELIQUIS PO SCH (21:03)
[2017-10-09] MEDS: XOPENEX 1.25 MG NEB SCH (04:50)
[2017-10-09] MEDS: SOLU-MEDROL 40 MG IVP SCH ×3 (06:40→21:37)
[2017-10-09] MEDS: LIPITOR PO SCH (08:37)
[2017-10-09] MEDS: HYZAAR 50-12.5 MG TAB PO SCH (08:38)
[2017-10-09] MEDS: CARDIZEM PO SCH ×2 (08:39→21:38)
[2017-10-09] MEDS: KLONOPIN PO SCH (08:40)
[2017-10-09] MEDS: ELIQUIS PO SCH ×2 (08:41→21:38)
[2017-10-09] MEDS: CATAPRES PO SCH ×2 (08:41→21:38)
[2017-10-09] MEDS ORDERED: NON-FORMULARY MEDICATION (Losartan/Hydrochlorothiazide [Hyzaar 100-25 Tablet] 1 EACH) PO SCH (09:00)
[2017-10-09] MEDS ORDERED: NON-FORMULARY MEDICATION (Paroxetine Hcl [Paxil] 30 MG) PO SCH (09:00)
[2017-10-09] MEDS ORDERED: K-DUR PO SCH (09:00)
--- NOTE | 2017-10-09 09:28 | PCM.PROG ---
Attending Provider: ATTENDING PROVIDER: Dr. CRISTINA ORDONEZ This patient is seen with Lisa Swift, Nurse Practitioner. DATE OF SERVICE: 10/09/17 SUBJECTIVE: This 67 year old WHITE/ F was hospitalized 10/08/17. The patient is sitting up in bed, alert. Positive for cough with yellow productive sputum. She is afebrile. Potassium is low today. Shortness of breath when up using restroom. REVIEW OF SYSTEMS: CONSTITUTIONAL: Weakness. No night sweats. No malaise, lethargy. No fever or chills. HEENT: Eyes: No visual changes. No eye pain. No eye discharge. ENT: No runny nose. No epistaxis. No sinus pain. No odynophagia. No congestion. RESPIRATORY: Productive cough with yellow sputum. No hemoptysis. Shortness of breath with exertion. CARDIOVASCULAR: No angina symptoms. No CHF symptoms. No atypical chest pain for CAD. No palpitations. No orthopnea. GASTROINTESTINAL: No abdominal pain. No nausea or vomiting. No diarrhea or constipation. No hematemesis. No hematochezia. GENITOURINARY: No urgency. No frequency. No dysuria. No hematuria. No obstructive symptoms. No discharge. No pain. No significant abnormal bleeding. MUSCULOSKELETAL: No musculoskeletal pain; no joint swelling. NEUROLOGICAL: Awake, alert, oriented to time, place and person. No headache. No neck pain. No syncope. No seizures. No dizziness. PSYCHIATRIC: Not anxious. No depression. No suicidal thoughts. No homicidal thoughts. SKIN: No rash. No lesions. No wounds. ENDOCRINE: No unexplained weight loss. No weight gain. HEMATOLOGIC/LYMPHATIC: No anemia. No purpura. No petechiae. No prolonged or excessive bleeding. No palpable lymph nodes. PHYSICAL EXAMINATION: GENERAL: The patient is awake, alert and oriented, lying in bed in no distress. VITAL SIGNS: Temperature 98.7 F, Pulse 56, Respiratory Rate 18, BP 114/55, Pulse Ox 98% HEENT: Head normocephalic, atraumatic. Eyes: Extraocular muscles are intact. Pupils are equal, round and reactive to light and accommodation. Ears: No lesions. Nose appeared normal. Throat: No exudate or erythema. NECK: Supple. No JVD, no carotid bruit. No lymphadenopathy or thyromegaly. LUNGS: Rhonchi bilaterally with rales on the left. Percussion note normal. Chest symmetrical. HEART: S1, S2, no S3. No murmurs. No cyanosis or clubbing. No ascites. Pulses: Dorsalis pedis and posterior tibial pulses +1 to +2 both sides. ABDOMEN: Soft. Non-tender. Bowel sounds active. No CVA tenderness. No mass felt. EXTREMITIES: No edema. Full range of motion of all extremities, equal. NEUROLOGIC: No focal deficit. Cranial nerves II through XII are grossly intact. No headache, no double vision or headache. SKIN: Not dry. Intact. Turgor-normal. LYMPHATIC: No palpable lymph nodes/no lymphedema. MUSCULOSKELETAL: Normal joints with no swelling. Muscle tone is normal. LAB REVIEW: 10/09/17 05:00 10/09/17 04:30 10/09/17 05:00: WBC 10.84 H, RBC 3.74 L, Hgb 11.5 L, Hct 32.8 L, MCV 87.7, MCH 30.7, MCHC 35.1, RDW Coeff of Zahraa 14.1, Plt Count 202, Neutrophils % (Manual) 91.0 H, Lymphocytes % (Manual) 5.0 L, Monocytes % (Manual) 3.0, Reactive Lymphocytes 1.0, Anisocytosis Not present 10/09/17 04:30: Sodium 135 L, Potassium 3.0 L, Chloride 99, Carbon Dioxide 24, Anion Gap 15.0, BUN 13, Creatinine 0.84, Estimated GFR (MDRD) 67.00, BUN/ Creatinine Ratio 15.47, Glucose 204 H D, Calcium 8.8, Total Bilirubin 0.2, AST 12 L, ALT 16, Alkaline Phosphatase 55, Total Protein 5.7 L, Albumin 2.9 L, Globulin 2.8, Albumin/Globulin Ratio 1.04 10/08/17 14:32: Influ A Molecular Assay Positive by naat H, Influ B Molecular Assay Negative by naat 10/08/17 13:40: Puncture Site R rad, O2 Saturation 96.0, ABG pH 7.532 H*, ABG pCO2 33.3 L, ABG pO2 72.0 L, ABG HCO3 28.0 H, ABG Total CO2 29 H, ABG Base Excess 5 H, Tee Test +, FiO2 % 21.0 10/08/17 13:00: Sodium 134 L, Potassium 3.5, Chloride 95 L, Carbon Dioxide 27, Anion Gap 15.5, BUN 8, Creatinine 0.89, Estimated GFR (MDRD) 63.00, BUN/ Creatinine Ratio 8.98, Glucose 110, Calcium 8.8, Total Bilirubin 0.4, AST 16, ALT 18, Alkaline Phosphatase 63, Total Creatine Kinase 38, Troponin I 0.2010, Total Protein 5.9, Albumin 3.2 L, Globulin 2.7, Albumin/Globulin Ratio 1.19 10/08/17 13:00: WBC 7.14, RBC 3.99 L, Hgb 12.1, Hct 35.5 L, MCV 89.0, MCH 30.3, MCHC 34.1, RDW Coeff of Zahraa 13.9, Plt Count 172, Immature Gran % (Auto) 0.3, Neut % (Auto) 79.8, Lymph % (Auto) 12.0, [place] % (Auto) 7.8, Eos % (Auto) 0.0, Baso % (Auto) 0.1, Immature Gran # (Auto) 0.0, Neut # (Auto) 5.7, Lymph # (Auto ) 0.9, [place] # (Auto) 0.6, Eos # (Auto) 0.0, Baso # (Auto) 0.0 ASSESSMENT: 1. Questionable Flu A per assay 2. Left lobe pneumonia 3. Hypokalemia PLAN: 1. Rapid flu 2. Decrease Solu-Medrol to 40 q.8 3. CBC, CMP daily 4. Potassium 20 mEq t.i.d. 5. Rocephin 1 gm IV daily 6. Zithromax 500 mg p.o. daily for 3 days 7. Resume home meds Plan and coordination of the patient's care discussed in the presence of Weatherization Coordinator and nurse. CONDITION: Stable SCRIBED BY: DEMETRI GONZALES, Spd Tech scribed while in presence of service performed by Dr. Ordonez/Lisa Swift APRN on 10/09/17 ([id number])
[2017-10-09] MEDS: PAXIL PO SCH (10:08)
[2017-10-09] MEDS: K-DUR PO SCH ×3 (10:08→21:38)
[2017-10-09] MEDS: ROCEPHIN 1 GM in SODIUM CHLORIDE 50 ML IV SCH (10:09)
[2017-10-09] MEDS: PRILOSEC PO SCH (10:09)
[2017-10-09] MEDS: ZITHROMAX PO SCH (10:09)
--- NOTE | 2017-10-09 11:07 | HP ---
DATE OF SERVICE: 10/08/17 (See Admit Note) REASON FOR HOSPITALIZATION/HISTORY OF PRESENT ILLNESS: 67-year-old female with COPD, congestion and yellow sputum times 7 days. She is sweaty, feels warm times three days. She complains of weakness and fatigue. PAST MEDICAL HISTORY: Atrial fibrillation CAD with LAD CHF DM II FATOU Depression History of breast cancer, left PAST SURGICAL HISTORY: Left breast (cancer) mastectomy T & A Hysterectomy MENSTRUAL HISTORY: 1973 REVIEW OF SYSTEMS: CONSTITUTIONAL: Positive for weakness and fatigue. No fever. HEENT: Positive for sinus drainage. No sore throat. RESPIRATORY: Positive for cough and congestion. CARDIOVASCULAR: No atypical chest pain for coronary artery disease. No angina , CHF symptoms, palpitations or shortness of breath. GASTROINTESTINAL: No melena or abdominal pain. No GERD. GENITOURINARY: No hematuria, no prostatism, no polyuria. UPPER LINING CEMENTER: No blackout, no dizziness, no headache, no double vision. MUSCULOSKELETAL: No osteoarthritis pain, no joint swelling. ENDOCRINE: No weight loss, no weight gain. SKIN: Warm and dry, no rash. PSYCHIATRIC: Not anxious, no depression, no suicidal thoughts, no homicidal thoughts. SOCIAL HISTORY: The patient is a nonsmoker. . No alcohol use. FAMILY HISTORY: ; Two children. Retired. No drug use history. No smoking history. No alcohol use. MEDICATIONS: (HOME MEDICATIONS) Tramadol 50 mg p.o. b.i.d. p.r.n. Paxil 30 mg p.o. daily Prilosec 20 mg p.o. daily Lipitor 40 mg p.o. daily Eliquis 5 mg p.o. b.i.d. Losartan/Hydrochlorothiazide (Hyzaar 100-25 tablet) one each p.o. daily #30 Clonazepam 0.5 mg p.o. daily Clonidine 0.2 mg p.o. b.i.d. Diltiazem (Cardizem) 120 mg p.o. q.12hr ALLERGIES: AMLODIPINE BESYLATE, VERAPAMIL PHYSICAL EXAMINATION: V/S: Pulse 106, BP 110/70, temperature 98.8, 02 sat 93%. Height 5'3", weight 162 lbs. BMI 28.7. GENERAL APPEARANCE: Oriented times three. Skin is dry. Looks poor. HEENT: Normal. NECK: No JVP, no bruits. RESPIRATORY: Decreased breath sounds. Lungs are clear. CARDIOVASCULAR: S1, S2, no S3, no murmurs. No cyanosis, clubbing. No ascites. GI/ABDOMEN: No tenderness. Bowel sounds are active. EXTREMITIES: edema, pulses +1, equal. UPPER LINING CEMENTER: Deep tendon reflexes, sensory, motor and gait all normal. RECTAL/PELVIC: Dr. Chavez - colonoscopy 10/07. Pelvic: Partial hysterectomy. Mammogram Left mastectomy 09/06; ultrasound right breast. ASSESSMENT: 1. NEAR SYNCOPE 2. DEHYDRATION 3. ACUTE BRONCHITIS (ASTHMATIC)/LARYNGITIS 4. SEVERE DJD SPINE 5. ATRIAL FIBRILLATION ON ELIQUIS 6. CAD WITH LAD 7. CHF 8. DIABETES MELLITUS TYPE 2 9. OBESITY 10. LAD 11. DEPRESSION 12. LEFT BREAST CANCER PLAN: 1. Chest x-ray (refused) 2. 2 cc Decadron IM 3. Prednisone 10 mg p.o. b.i.d. times five days 4. Keflex 500 mg t.i.d. times 10 days 5. Phenergan with Codeine two teaspoons p.o. daily times 7 p.r.n. 6. Rest 7. Increase fluids 8. Refuses hospitalization TIME SPENT: More than 70 minutes. MTDD
--- NOTE | 2017-10-09 13:20 | PN ---
DATE OF SERVICE: 10/08/17 (ADMIT NOTE) SUBJECTIVE: The patient had declined to be hospitalized. She was seen in the office and was sitting in the office in the waiting area to get followup appointment, which was to be scheduled for Friday. At that time, she was noted to be light-headed. She sat down in the chair. At that point, I went to her and advised her again to be hospitalized at this time. She said that she would rather be hospitalized now. Prior to that, she had declined hospitalization or a chest x-ray. The patient was advised to go to the emergency room for further workup. MEDICATIONS: Tramadol 50 mg p.o. b.i.d. p.r.n. Paxil 30 mg p.o. daily Prilosec 20 mg p.o. daily Lipitor 40 mg p.o. daily Eliquis 5 mg p.o. b.i.d. Losartan/Hydrochlorothiazide (Hyzaar 100-25 tablet) one each p.o. daily #30 Clonazepam 0.5 mg p.o. daily Clonidine 0.2 mg p.o. b.i.d. Diltiazem (Cardizem) 120 mg p.o. q.12hr ALLERGIES: VERAPAMIL AND NORVASC REVIEW OF SYSTEMS: CONSTITUTIONAL: Positive for weakness and fatigue. No fever. HEENT: Positive for sinus drainage. No sore throat. RESPIRATORY: Positive for cough and congestion. CARDIOVASCULAR: No atypical chest pain for coronary artery disease. No angina , CHF symptoms, palpitations or shortness of breath. GASTROINTESTINAL: No melena or abdominal pain. No GERD. GENITOURINARY: No hematuria, no prostatism, no polyuria. UTILITY BAG ASSEMBLER: No blackout, no dizziness, no headache, no double vision. MUSCULOSKELETAL: No osteoarthritis pain, no joint swelling. ENDOCRINE: No weight loss, no weight gain. SKIN: Warm and dry, no rash. PSYCHIATRIC: Not anxious, no depression, no suicidal thoughts, no homicidal thoughts. FAMILY/SOCIAL HISTORY: The patient is , lives with the . Nonsmoker. No alcohol abuse. She does all activities of daily living. Very active. PHYSICAL EXAMINATION: V/S: Pulse 106, BP 110/70, temperature 98.8, 02 sat 93%. Height 5'3", weight 162 lbs. BMI 28.7. GENERAL APPEARANCE: Oriented times three. Skin is dry. Looks poor. HEENT: Normal. NECK: No JVP, no bruits. RESPIRATORY: Decreased breath sounds. Lungs are clear. CARDIOVASCULAR: S1, S2, no S3, no murmurs. No cyanosis, clubbing. No ascites. GI/ABDOMEN: No tenderness. Bowel sounds are active. EXTREMITIES: edema, pulses +1, equal. UTILITY BAG ASSEMBLER: Deep tendon reflexes, sensory, motor and gait all normal. RECTAL/PELVIC: Dr. Chavez - colonoscopy 10/07. Pelvic: Partial hysterectomy. Mammogram Left mastectomy 09/06; ultrasound right breast. ASSESSMENT: 1. NEAR SYNCOPE 2. DEHYDRATION 3. ACUTE BRONCHITIS (ASTHMATIC)/LARYNGITIS 4. SEVERE DJD SPINE 5. ATRIAL FIBRILLATION ON ELIQUIS 6. CAD WITH LAD 7. CHF 8. DIABETES MELLITUS TYPE 2 9. OBESITY 10. LAD 11. DEPRESSION 12. LEFT BREAST CANCER The patient's EKG done showed ventricular trigeminy and entire other workup for near syncopal episode was negative. The patient's symptoms of acute bronchitis and dehydration were good enough for her to be hospitalized; therefore, the patient will be hospitalized with the following plans. PLAN: 1. Telemetry 2. Routine telemetry orders 3. IV Rocephin q.24 hr 4. Zithromax 500 p.o. daily for three days 5. Solu-Cortef 125 mg q.8 6. Nebs treatment with Xopenex q.i.d. 7. IV fluids 8. Oxygen 9. ABG 10. Monitoring oximetry TIME SPENT: More than 30 minutes. Plan and coordination of the patient's care discussed in the presence of nurse. EVELIN
[2017-10-09] MEDS: XOPENEX 0.63 MG NEB SCH ×2 (14:15→21:26)
[2017-10-10] MEDS: XOPENEX 0.63 MG NEB SCH ×3 (04:42→21:32)
[2017-10-10] MEDS: SOLU-MEDROL 40 MG IVP SCH ×2 (05:53→21:23)
[2017-10-10] MEDS: PRILOSEC PO SCH (05:53)
[2017-10-10] MEDS: ROCEPHIN 1 GM in SODIUM CHLORIDE 50 ML IV SCH (08:34)
[2017-10-10] MEDS: K-DUR PO SCH ×3 (08:35→20:11)
[2017-10-10] MEDS: HYZAAR 50-12.5 MG TAB PO SCH (08:35)
[2017-10-10] MEDS: CARDIZEM PO SCH ×2 (08:35→20:10)
[2017-10-10] MEDS: CATAPRES PO SCH ×2 (08:35→20:11)
[2017-10-10] MEDS: PAXIL PO SCH (08:36)
[2017-10-10] MEDS: ELIQUIS PO SCH ×2 (08:38→20:11)
[2017-10-10] MEDS: LIPITOR PO SCH (08:38)
[2017-10-10] MEDS: ZITHROMAX PO SCH (08:39)
[2017-10-10] MEDS: KLONOPIN PO SCH (08:40)
--- NOTE | 2017-10-10 09:17 | PCM.PROG ---
Attending Provider: ATTENDING PROVIDER: Dr. CRISTINA ORDONEZ This patient is seen with Lisa Swift, Nurse Practitioner. DATE OF SERVICE: 10/10/17 SUBJECTIVE: This 67 year old WHITE/ F was hospitalized 10/08/17. The patient is sitting in bed alert. The patient is resting comfortably. Cough is slightly improved not as productive. The patient is still weak and short of breath with any sort of exertion. She is encouraged to walk today. REVIEW OF SYSTEMS: CONSTITUTIONAL: Weakness. No night sweats. No malaise, lethargy. No fever or chills. HEENT: Eyes: No visual changes. No eye pain. No eye discharge. ENT: No runny nose. No epistaxis. No sinus pain. No odynophagia. No congestion. RESPIRATORY: Cough and congestion. No hemoptysis. No shortness of breath. CARDIOVASCULAR: No angina symptoms. No CHF symptoms. No atypical chest pain for CAD. No palpitations. No orthopnea.. GASTROINTESTINAL: No abdominal pain. No nausea or vomiting. No diarrhea or constipation. No hematemesis. No hematochezia. GENITOURINARY: No urgency. No frequency. No dysuria. No hematuria. No obstructive symptoms. No discharge. No pain. No significant abnormal bleeding. MUSCULOSKELETAL: No musculoskeletal pain; no joint swelling. NEUROLOGICAL: Awake, alert, oriented to time, place and person. No headache. No neck pain. No syncope. No seizures. No dizziness. PSYCHIATRIC: Not anxious. No depression. No suicidal thoughts. No homicidal thoughts. SKIN: No rash. No lesions. No wounds. ENDOCRINE: No unexplained weight loss. No weight gain. HEMATOLOGIC/LYMPHATIC: No anemia. No purpura. No petechiae. No prolonged or excessive bleeding. No palpable lymph nodes. PHYSICAL EXAMINATION: GENERAL: The patient is awake, alert and oriented, sitting in bed in no distress. VITAL SIGNS: Temperature 98.7 F, Pulse 77, Respiratory Rate 18, BP 108/54, Pulse Ox 92% HEENT: Head normocephalic, atraumatic. Eyes: Extraocular muscles are intact. Pupils are equal, round and reactive to light and accommodation. Ears: No lesions. Nose appeared normal. Throat: No exudate or erythema. NECK: Supple. No JVD, no carotid bruit. No lymphadenopathy or thyromegaly. LUNGS: Improving bilateral rhonchi. Percussion note normal. Chest symmetrical. HEART: S1, S2, no S3. No murmurs. No cyanosis or clubbing. No ascites. Pulses: Dorsalis pedis and posterior tibial pulses +1 to +2 both sides. ABDOMEN: Soft. Non-tender. Bowel sounds active. No CVA tenderness. No mass felt. EXTREMITIES: No edema. Full range of motion of all extremities, equal. NEUROLOGIC: No focal deficit. Cranial nerves II through XII are grossly intact. No headache, no double vision or headache. SKIN: Not dry. Intact. Turgor-normal. LYMPHATIC: No palpable lymph nodes/no lymphedema. MUSCULOSKELETAL: Normal joints with no swelling. Muscle tone is normal. LAB REVIEW: 10/10/17 04:30 10/10/17 04:30 10/10/17 04:30: Sodium 136, Potassium 3.6, Chloride 101, Carbon Dioxide 25, Anion Gap 13.6, BUN 14, Creatinine 0.76, Estimated GFR (MDRD) 75.00, BUN/ Creatinine Ratio 18.42, Glucose 158 H, Calcium 9.1, Total Bilirubin 0.2, AST 15 , ALT 20, Alkaline Phosphatase 55, Total Protein 5.8, Albumin 2.9 L, Globulin 2.9, Albumin/Globulin Ratio 1.00 10/10/17 04:30: WBC 17.38 H D, RBC 3.72 L, Hgb 11.3 L, Hct 32.9 L, MCV 88.4, MCH 30.4, MCHC 34.3, RDW Coeff of Zahraa 14.0, Plt Count 214, Neutrophils % (Manual ) 89.0 H, Band Neutrophils % 3.0, Lymphocytes % (Manual) 5.0 L, Monocytes % ( Manual) 3.0, Anisocytosis Not present ASSESSMENT: 1. Positive Flu A 2. Left lobe pneumonia 3. Hypokalemia PLAN: 1. Decrease Solu-Medrol 2. Continue Rocephin and Zithromax Plan and coordination of the patient's care discussed in the presence of Jd Edwards Developer and nurse. CONDITION: Stable SCRIBED BY: DEMETRI GONZALES Electric Cell Tender scribed while in presence of service performed by Dr. Ordonez/Lisa Swift APRN on 10/10/17 ([id number])
--- NOTE | 2017-10-10 13:06 | HP ---
DATE OF SERVICE: 10/09/17 HISTORY OF PRESENT ILLNESS: 67-year-old white female who initially presented to our office with cough, congestion. She had a near syncopal episode exiting our office after declining hospitalization and now presented to the emergency room with extreme weakness and near syncopal episode. 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 Chavez REVIEW OF SYSTEMS: CONSTITUTIONAL: Fatigue/weakness. No night sweats. No malaise, lethargy. No fever or chills. HEENT: Eyes: No visual changes. No eye pain. No eye discharge. ENT: No runny nose. No epistaxis. No sinus pain. No sore throat. No odynophagia. No ear pain. No congestion. RESPIRATORY: Cough and congestion. No hemoptysis. No shortness of breath. CARDIOVASCULAR: No angina symptoms. No CHF symptoms. No atypical chest pain for CAD. No palpitations. No orthopnea. GASTROINTESTINAL: No abdominal pain. No nausea or vomiting. No diarrhea or constipation. No hematemesis. No hematochezia. GENITOURINARY: No urgency. No frequency. No dysuria. No hematuria. No obstructive symptoms. No discharge. No pain. No significant abnormal bleeding. MUSCULOSKELETAL: No musculoskeletal pain. No joint swelling. No arthritis. NEUROLOGICAL: Dizziness. No headache. No neck pain. No syncope. No seizures. PSYCHIATRIC: Not anxious. No depression. No suicidal thoughts. No homicidal thoughts. SKIN: No rash. No lesions. No wounds. ENDOCRINE: No unexplained weight loss. No weight gain. HEMATOLOGIC/LYMPHATIC: No anemia. No purpura. No petechiae. No prolonged or excessive bleeding. No palpable lymph nodes. PERSONAL/FAMILY/SOCIAL HISTORY: The patient is . She is a nonsmoker. No alcohol or ilicit drug use. MEDICATIONS: (HOME) 1. Tramadol 50 mg p.o. b.i.d. p.r.n. 2. Paxil 30 mg p.o. daily 3. Prilosec 20 mg p.o. daily 4. Lipitor 40 mg p.o. daily 5. Eliquis 5 mg p.o. b.i.d. 6. Losartan/Hydrochlorothiazide (Hyzaar 100-25 tablet) one each p.o. daily 7. Clonazepam 0.5 mg p.o. daily 8. Clonidine 0.1 mg p.o. b.i.d. 9. Diltiazem (Cardizem) 120 mg p.o. q.12hr ALLERGIES: AMLODIPINE BESYLATE, VERAPAMIL PHYSICAL EXAMINATION: HEENT: Ill-appearing. Head normocephalic, atraumatic. Eyes: Extraocular muscles are intact. Pupils are equal, round and reactive to light and accommodation. Ears: No lesions. Nose appeared normal. Throat: No exudate or erythema. NECK: Supple. No JVD, no carotid bruit. No lymphadenopathy or thyromegaly. LUNGS: Diminished breath sounds bilaterally with bilateral rhonchi. Clear to auscultation. Percussion note normal. Chest symmetrical. HEART: S1, S2, no S3. No murmurs. No cyanosis or clubbing. No ascites. Pulses: Dorsalis pedis and posterior tibial pulses +1 to +2 both sides. ABDOMEN: Soft. Nontender. Bowel sounds active. No CVA tenderness. No mass felt. EXTREMITIES: No edema. Full range of motion of all extremities, equal. NEUROLOGIC: Alert and oriented times three. No focal deficit. Cranial nerves II through XII are grossly intact. No headache, no double vision or headache. SKIN: Not dry. Intact. Turgor - normal. LYMPHATIC: No palpable lymph nodes/no lymphedema. MUSCULOSKELETAL: Normal joints with no swelling. Muscle tone is normal. ABGs on room air: pH 7.532, pc02 33.3, p02 72, base excess of 5, bicarb 28, TC02 29, 02 sat 96. Sodium 134, potassium 3.5, BUN 8, creatinine 0.89, glucose 110, AST 16, ALT 18, total protein 5.9, albumin 3.2, globulin 2.7, alkaline phosphatase 63, white count 7.14, hemoglobin 12.1, hematocrit 35.5, platelets 172. She is positive for Flu A by Assay. ASSESSMENT: 1. ACUTE BRONCHITIS 2. POSITIVE FLU A 3. NEAR SYNCOPAL EPISODE 4. HYPOTENSION 5. HYPOKALEMIA PLAN: 1. Admit as an inpatient 2. Rocephin 1 gm IV daily 3. Zithromax 500 mg p.o. daily times three days 4. Continue home medications 5. Xopenex neb treatments q.6hr scheduled 6. Solu-Medrol 80 mg q.8hr IV 7. Routine telemetry orders 8. Potassium 20 mEq t.i.d. p.o. 9. 02 at 1 to 2L as needed 10. IV fluids NS at 75 cc/hr 11. Regular diet 12. Will follow closely TIME SPENT: More than 70 minutes. MTDD
--- NOTE | 2017-10-10 14:00 | PN ---
DATE OF SERVICE: 10/09/17 SUBJECTIVE: The patient was hospitalized yesterday with acute bronchitis/pneumonitis and near syncopal episode. The patient's condition has improved remarkably. Her hydration status has improved. She is feeling better. She is on steroids, antibiotics and NEBS treatment. The patient was seen and examined with Nurse Practitioner. CONDITION: Stable. TIME SPENT: More than 30 minutes. Plan and coordination of the patient's care discussed in the presence of nurse. EVELIN
[2017-10-11] MEDS: XOPENEX 0.63 MG NEB SCH ×3 (04:40→21:05)
[2017-10-11] MEDS: PRILOSEC PO SCH (05:31)
[2017-10-11] MEDS: ZITHROMAX PO SCH (08:32)
[2017-10-11] MEDS: ROCEPHIN 1 GM in SODIUM CHLORIDE 50 ML IV SCH (08:32)
[2017-10-11] MEDS: PAXIL PO SCH (08:32)
[2017-10-11] MEDS: SOLU-MEDROL 40 MG IVP SCH ×2 (08:32→22:39)
[2017-10-11] MEDS: K-DUR PO SCH ×3 (08:33→20:31)
[2017-10-11] MEDS: KLONOPIN PO SCH (08:33)
[2017-10-11] MEDS: HYZAAR 50-12.5 MG TAB PO SCH (08:33)
[2017-10-11] MEDS: LIPITOR PO SCH (08:33)
[2017-10-11] MEDS: ELIQUIS PO SCH ×2 (08:34→20:31)
[2017-10-11] MEDS: CARDIZEM PO SCH ×2 (08:34→20:31)
[2017-10-11] MEDS: CATAPRES PO SCH ×2 (08:34→20:36)
[2017-10-11] MEDS: ULTRAM PO PRN (20:36)
[2017-10-12] MEDS: XOPENEX 0.63 MG NEB SCH ×3 (04:46→21:00)
[2017-10-12] MEDS: PRILOSEC PO SCH (05:57)
[2017-10-12] MEDS: SOLU-MEDROL 40 MG IVP SCH ×2 (08:47→21:59)
[2017-10-12] MEDS: HYZAAR 50-12.5 MG TAB PO SCH (08:47)
[2017-10-12] MEDS: KLONOPIN PO SCH (08:48)
[2017-10-12] MEDS: K-DUR PO SCH ×3 (08:48→20:18)
[2017-10-12] MEDS: CARDIZEM PO SCH ×2 (08:48→20:18)
[2017-10-12] MEDS: PAXIL PO SCH (08:48)
[2017-10-12] MEDS: LIPITOR PO SCH (08:48)
[2017-10-12] MEDS: CATAPRES PO SCH ×2 (08:49→20:17)
[2017-10-12] MEDS: ELIQUIS PO SCH ×2 (08:49→20:18)
[2017-10-12] MEDS: ROCEPHIN 1 GM in SODIUM CHLORIDE 50 ML IV SCH (08:51)
[2017-10-12] MEDS: ULTRAM PO PRN ×2 (08:59→20:23)
[2017-10-12] MEDS: TORADOL IVP SCH ×2 (13:13→21:59)
[2017-10-13] MEDS: XOPENEX 0.63 MG NEB SCH (04:35)
[2017-10-13] MEDS: TORADOL IVP SCH (05:12)
[2017-10-13] MEDS: PRILOSEC PO SCH (05:37)
--- NOTE | 2017-10-13 09:25 | PCM.PROG ---
Attending Provider: ATTENDING PROVIDER: Dr. CRISTINA ORDONEZ This patient is seen with Lisa Swift, Nurse Practitioner. DATE OF SERVICE: 10/13/17 SUBJECTIVE: This 67 year old WHITE/ F was hospitalized 10/08/17. The patient is sitting up in bed, alert. She states she is feeling good this morning. Cough improved; is eating well. REVIEW OF SYSTEMS: CONSTITUTIONAL: No night sweats. No fatigue, malaise, lethargy. No fever or chills. HEENT: Eyes: No visual changes. No eye pain. No eye discharge. ENT: No runny nose. No epistaxis. No sinus pain. No odynophagia. No congestion. RESPIRATORY: Nonproductive cough. no congestion. No hemoptysis. No shortness of breath. CARDIOVASCULAR: No angina symptoms. No CHF symptoms. No atypical chest pain for CAD. No palpitations. No orthopnea.. GASTROINTESTINAL: No abdominal pain. No nausea or vomiting. No diarrhea or constipation. No hematemesis. No hematochezia. GENITOURINARY: No urgency. No frequency. No dysuria. No hematuria. No obstructive symptoms. No discharge. No pain. No significant abnormal bleeding. MUSCULOSKELETAL: No musculoskeletal pain; no joint swelling. NEUROLOGICAL: Awake, alert, oriented to time, place and person. No headache. No neck pain. No syncope. No seizures. No dizziness. PSYCHIATRIC: Not anxious. No depression. No suicidal thoughts. No homicidal thoughts. SKIN: No rash. No lesions. No wounds. ENDOCRINE: No unexplained weight loss. No weight gain. HEMATOLOGIC/LYMPHATIC: No anemia. No purpura. No petechiae. No prolonged or excessive bleeding. No palpable lymph nodes. PHYSICAL EXAMINATION: GENERAL: The patient is awake, alert and oriented, sitting in bed in no distress. VITAL SIGNS: Temperature 97.9 F, Pulse 66, Respiratory Rate 20, BP 158/80, Pulse Ox 96% HEENT: Head normocephalic, atraumatic. Eyes: Extraocular muscles are intact. Pupils are equal, round and reactive to light and accommodation. Ears: No lesions. Nose appeared normal. Throat: No exudate or erythema. NECK: Supple. No JVD, no carotid bruit. No lymphadenopathy or thyromegaly. LUNGS: Diminished breath sounds. Clear to auscultation. Percussion note normal. Chest symmetrical. HEART: S1, S2, no S3. No murmurs. No cyanosis or clubbing. No ascites. Pulses: Dorsalis pedis and posterior tibial pulses +1 to +2 both sides. ABDOMEN: Soft. Non-tender. Bowel sounds active. No CVA tenderness. No mass felt. EXTREMITIES: No edema. Full range of motion of all extremities, equal. NEUROLOGIC: No focal deficit. Cranial nerves II through XII are grossly intact. No headache, no double vision or headache. SKIN: Not dry. Intact. Turgor-normal. LYMPHATIC: No palpable lymph nodes/no lymphedema. MUSCULOSKELETAL: Normal joints with no swelling. Muscle tone is normal. LAB REVIEW: 10/13/17 04:45 10/13/17 04:45 10/13/17 04:45: Sodium 135 L, Potassium 3.8, Chloride 100, Carbon Dioxide 25, Anion Gap 13.8, BUN 20 H, Creatinine 0.73, Estimated GFR (MDRD) 79.00, BUN/ Creatinine Ratio 27.39, Glucose 150 H, Calcium 9.1, Total Bilirubin 0.4, AST 16 , ALT 35, Alkaline Phosphatase 61, Total Protein 5.6 L, Albumin 2.9 L, Globulin 2.7, Albumin/Globulin Ratio 1.07 10/13/17 04:45: WBC 17.03 H, RBC 4.01 L, Hgb 12.2, Hct 34.8 L, MCV 86.8, MCH 30.4, MCHC 35.1, RDW Coeff of Zahraa 13.7, Plt Count 355, Neutrophils % (Manual) 82.0 H, Lymphocytes % (Manual) 13.0, Monocytes % (Manual) 3.0, Metamyelocytes % 1.0, Myelocytes % 1.0, Anisocytosis Not present ASSESSMENT: 1. Positive Flu A 2. Left lobe pneumonia 3. Hypokalemia, resolved PLAN: 1. D/C home 2. Will see next week in the office 3. Keflex 500 mg t.i.d. for 5 days 4. Prednisone 10 mg b.i.d. times five days Plan and coordination of the patient's care discussed in the presence of Fiberglass Tube Molder and nurse. CONDITION: Stable SCRIBED BY: Wilver URRUTIA scribed while in presence of service performed by Dr. Ordonez/Lisa Swift APRN on 10/13/17 ([id number])
[2017-10-13] MEDS: CATAPRES PO SCH (09:42)
[2017-10-13] MEDS: HYZAAR 50-12.5 MG TAB PO SCH (09:42)
[2017-10-13] MEDS: CARDIZEM PO SCH (09:43)
[2017-10-13] MEDS: SOLU-MEDROL 40 MG IVP SCH (09:43)
[2017-10-13] MEDS: K-DUR PO SCH ×2 (09:43→10:14)
[2017-10-13] MEDS: PAXIL PO SCH (09:43)
[2017-10-13] MEDS: LIPITOR PO SCH (09:43)
[2017-10-13] MEDS: ROCEPHIN 1 GM in SODIUM CHLORIDE 50 ML IV SCH (09:43)
[2017-10-13] MEDS: KLONOPIN PO SCH (09:43)
[2017-10-13] MEDS: ELIQUIS PO SCH (09:44)
[2017-10-13 10:31] VITALS: BP 171/64; TEMP 98.6
--- NOTE | 2017-10-13 11:34 | CM.DICTOOL ---
ADMISSION: 10/08/17 14:34 DISCHARGE: 10/13/17 DATE OF SERVICE: 10/13/17 FINAL DIAGNOSIS INFLUENZA A BRONCHITIS DEHYDRATION WEAKNESS SYNCOPE HYPOKALEMIA CAD S/P LAD STENT APPLICATION ATRIAL FIBRILLATION (ELIQUIS) DILATED CARDIOMYOPATHY LEFT BUNDLE BRANCH BLOCK HTN DYSLIPIDEMIA CHF GERD CONSTIPATION DIVERTICULOSIS (LAST COLONOSCOPY 10/07, DR. 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 DEPRESSION/ANXIETY CATARACT EXTRACTIONS TONSILLECTOMY HYSTERECTOMY, 1973 BREAST CANCER S/P LEFT MASTECTOMY, 2006 LAST VITALS Temp Pulse Resp BP Pulse Ox 97.9 F 66 20 158/80 H 96 10/13/17 06:00 10/13/17 06:00 10/13/17 06:00 10/13/17 06:00 10/13/17 06:00 TAKE THESE MEDICATIONS AT HOME Apixaban (Eliquis) 5 mg PO BID [facility] Last Admin: 10/12/17 20:18 Dose: 5 mg Atorvastatin Calcium (Lipitor) 40 mg PO DAILY [facility] Last Admin: 10/12/17 08:48 Dose: 40 mg Clonazepam (Klonopin) 0.5 mg PO DAILY [facility] Last Admin: 10/12/17 08:48 Dose: 0.5 mg Clonidine (Catapres) 0.1 mg PO BID [facility] Last Admin: 10/12/17 20:17 Dose: 0.1 mg Diltiazem HCl (Cardizem) 120 mg PO Q12HR [facility] Last Admin: 10/12/17 20:18 Dose: 120 mg HCTZ/Losartan Potassium (Hyzaar 50-12.5 Mg Tab) 2 tab PO DAILY [facility] Last Admin: 10/12/17 08:47 Dose: 2 tab Omeprazole (Prilosec) 20 mg PO QDAC [facility] Last Admin: 10/13/17 05:37 Dose: 20 mg Paroxetine HCl (Paxil) 30 mg PO DAILY [facility] Last Admin: 10/12/17 08:48 Dose: 30 mg Tramadol HCL (Ultram) 50 mg PO BID PRN MEDICATION CHANGES NONE SEE PRESCRIPTIONS ALLERGIES amlodipine besylate [From [facility]] Adverse Reaction (Mild, Verified 02/17/15 15: 44) worsening HTN verapamil Adverse Reaction (Mild, Verified 02/17/15 15:43) worsening HTN NEW PRESCRIPTIONS: KEFLEX 500 MG, TAKE ONE CAPSULE BY MOUTH THREE TIMES DAILY FOR 5 DAYS PREDNISONE 10 MG, TAKE ONE TABLET BY MOUTH WITH FOOD TWICE DAILY FOR 5 DAYS SMOKING: NONSMOKER DISEASE SPECIFIC EDUCATION: INFLUENZA A AND PREVENTION OF SPREAD DEHYDRATION/WEAKNESS SYNCOPAL EPISODES BRONCHITIS HOME MEDICATIONS NEW PRESCRIPTIONS ADVERSE EFFECTS ASSOCIATED WITH FARMWORKER GENERAL STEROID USE FOLLOW UP LAB REVIEW: 10/13/17 04:45 10/13/17 04:45 10/13/17 04:45: Sodium 135 L, Potassium 3.8, Chloride 100, Carbon Dioxide 25, Anion Gap 13.8, BUN 20 H, Creatinine 0.73, Estimated GFR (MDRD) 79.00, BUN/ Creatinine Ratio 27.39, Glucose 150 H, Calcium 9.1, Total Bilirubin 0.4, AST 16 , ALT 35, Alkaline Phosphatase 61, Total Protein 5.6 L, Albumin 2.9 L, Globulin 2.7, Albumin/Globulin Ratio 1.07 10/13/17 04:45: WBC 17.03 H, RBC 4.01 L, Hgb 12.2, Hct 34.8 L, MCV 86.8, MCH 30.4, MCHC 35.1, RDW Coeff of Zahraa 13.7, Plt Count 355, Neutrophils % (Manual) 82.0 H, Lymphocytes % (Manual) 13.0, Monocytes % (Manual) 3.0, Metamyelocytes % 1.0, Myelocytes % 1.0, Anisocytosis Not present PLAN: DISCHARGE HOME TODAY RETURN TO [facility] ON 10/21/17 AT 9 A.M. FOR A PFT RETURN TO THE OFFICE TO SEE DR. ORDONEZ ON 10/21/17 AT 9:30 A.M. RESUME YOUR HOME MEDICATIONS PER LIST PROVIDED BY THE NURSING STAFF NEW PRESCRIPTIONS KEFLEX 500 MG, TAKE ONE CAPSULE BY MOUTH THREE TIMES DAILY FOR 5 DAYS PREDNISONE 10 MG, TAKE ONE TABLET BY MOUTH WITH FOOD TWICE DAILY FOR 5 DAYS ACTIVITY GET PLENTY OF REST AT HOME. GRADUALLY INCREASE YOUR ACTIVITY LEVEL ACCORDING TO YOUR TOLERATION DIET HEALTHY HEART SUMMARY THE PATIENT RESIDES AT HOME WITH HER SPOUSE. SHE IS INDEPENDENT WITH ADL'S AND DESIRES TO RETURN HOME AT DISCHARGE. HER SKIN TURGOR IS INTACT AND WITHOUT DECUBITUS ULCERS. HYDRATION AND NUTRITIONAL STATUS ARE IMPROVED. SHE HAS MADE POSITIVE CLINICAL IMPROVEMENT DURING THE HOSPITAL STAY. SHE IS AWARE AND AGREEABLE FOR TODAY'S DISCHARGE PLANS. CURRENT CODE STATUS FULL CODE MARLA ALMAGUER APRN CRISTINA ORDONEZ M.D.
--- NOTE | 2017-10-14 11:01 | PN ---
DATE OF SERVICE: 10/13/17 SUBJECTIVE: The patient was hospitalized with influenza B with acute bronchitis/ Pneumonitis. The patient is feeling a lot better. She still weak. The patient will be discharged on antibiotics and steroids. Advised to rest. She will be seen as an outpatient. Condition has improved. Cardiovascular status is stable. The patient was seen and examined with Nurse Practitioner. TIME SPENT: More than 30 minutes. Plan and coordination of the patient's care discussed in the presence of nurse. EVELIN
--- NOTE | 2017-10-14 11:03 | PN ---
10/08/17: Level 5 10/09/17: Intermediate 10/10/17: Intermediate 10/11/17: Intermediate 10/12/17: Intermediate 10/13/17: D as in discharge MTDD
--- NOTE | 2017-10-14 11:29 | ECHO2D ---
Date of Exam: 10/12/17 Ordering Physician: DR. CRISTINA ORDONEZ Room #: 115 Reason for Echo: CAD, LVH, SOA M-Mode Normal Adult Results LV Dimensions Normal Adult Results AoV Opening excursions >1.6 >1.6 LVEDD-base- 3.5-5.8 4.7 Ao root dimensions 2.0-3.7 3.4 LVESD-base- 3.1-4.6 L. Atrium dimensions 1.9-3.8 4.7 Post. Wall thickness 0.8-1.1 1.3 IV septum (thickness) 0.7-1.2 1.3 Post. Wall excursion 0.72-1.3 NORMAL Septal motion 0.4 Systolic motion R. Ventricular cavity 1.5-2.0 NORMAL LVEF 60% 50% Paradoxical septal wall motion NORMAL 2-D : ABNORMAL SEPTAL WALL MOTION (LEFT BUNDLE BRANCH BLOCK)--NORMAL VALVES--NO EFFUSION, NO THROMBUS, NORMAL LEFT VENTRICLE SIZE, ENLARGED LEFT ATRIAL SIZE M-MODE: MV: NORMAL AV: NORMAL TV: NORMAL PV: CHAMBER SIZE: ENLARGED LEFT ATRIAL SIZE WALL MOTION: ABNORMAL SEPTAL WALL MOTION (LEFT BUNDLE BRANCH BLOCK) PERICARDIUM: NORMAL INTERPRETATION: 1. LEFT VENTRICULAR HYPERTROPHY 2. ENLARGED LEFT ATRIAL CAVITY (4.7 CM) 3. ABNORMAL SEPTAL WALL MOTION--HYPOKINETIC (LEFT BUNDLE BRANCH BLOCK) 4. LEFT VENTRICULAR EJECTION FRACTION 50% (NORMAL GREATER THAN 60%) MTDD
--- NOTE | 2017-10-16 11:03 | PN ---
DATE OF SERVICE: 10/11/17 SUBJECTIVE: The patient is lying in bed, states she rested well last night. Her cough is slowly improving; however, still productive and yellow. She is feeling somewhat better. She has not walked much. She just got up to go to the bathroom and in the room yesterday. I have encouraged her to get up and about and walk around today with possible D/C home tomorrow. She has been eating fairly well. I have instructed her to increase fluids. REVIEW OF SYSTEMS: CONSTITUTIONAL: Weakness. No night sweats. No malaise, lethargy. No fever or chills. HEENT: Eyes: No visual changes. No eye pain. No eye discharge. ENT: No runny nose. No epistaxis. No sinus pain. No sore throat. No odynophagia. No congestion. RESPIRATORY: Cough. No congestion. No hemoptysis. Shortness of breath with exertion. CARDIOVASCULAR: No angina symptoms. No CHF symptoms. No atypical chest pain for CAD. No palpitations. No orthopnea. GASTROINTESTINAL: No abdominal pain. No nausea or vomiting. No diarrhea or constipation. No hematemesis. No hematochezia. GENITOURINARY: No urgency. No frequency. No dysuria. No hematuria. No obstructive symptoms. No discharge. No pain. No significant abnormal bleeding. MUSCULOSKELETAL: No musculoskeletal pain; no joint swelling. NEUROLOGICAL: No headache. No neck pain. No syncope. No seizures. No dizziness. PSYCHIATRIC: Not anxious. No depression. No suicidal thoughts. No homicidal thoughts. SKIN: No rash. No lesions. No wounds. ENDOCRINE: No unexplained weight loss. No weight gain. HEMATOLOGIC/LYMPHATIC: No anemia. No purpura. No petechiae. No prolonged or excessive bleeding. No palpable lymph nodes. PHYSICAL EXAMINATION: VITAL SIGNS: Temperature 98.5, heart rate 78, respirations 16, BP 154/78, pulse ox 95% on room air. HEENT: Head normocephalic, atraumatic. Eyes: Extraocular muscles are intact. Pupils are equal, round and reactive to light and accommodation. Ears: No lesions. Nose appeared normal. Throat: No exudate or erythema. NECK: Supple. No JVD, no carotid bruit. No lymphadenopathy or thyromegaly. LUNGS: Diminished breath sounds bilaterally with bilateral rhonchi that are improving. Percussion note normal. Chest symmetrical. HEART: S1, S2, no S3. No murmurs. No cyanosis or clubbing. No ascites. Pulses: Dorsalis pedis and posterior tibial pulses +1 to +2 both sides. ABDOMEN: Soft. Nontender. Bowel sounds active. No CVA tenderness. No mass felt. EXTREMITIES: No leg edema. Full range of motion of all extremities, equal. NEUROLOGIC: Alert and oriented. No focal deficit. Cranial nerves II through XII are grossly intact. No headache, no double vision or headache. SKIN: Not dry. Intact. Turgor - normal. LYMPHATIC: No palpable lymph nodes/no lymphedema. MUSCULOSKELETAL: Normal joints with no swelling. Muscle tone is normal. ASSESSMENT: 1. Positive Flu A 2. Acute bronchitis 3. Dehydration resolved 4. Weakness improving PLAN: 1. D/C Solu-Medrol 2. Will start Prednisone 10 mg b.i.d. 3. Encourage to get up and about and walk around today 4. Will anticipate discharge TIME SPENT: More than 30 minutes. Plan and coordination of the patient's care discussed in the presence of nurse. EVELIN
--- NOTE | 2017-10-16 11:29 | DS ---
DATE OF SERVICE: 10/13/17 FINAL DIAGNOSIS: 1. INFLUENZA A 2. BRONCHITIS 3. DEHYDRATION 4. WEAKNESS 5. SYNCOPE 6. HYPOKALEMIA 7. CAD S/P LAD STENT APPLICATION 8. ATRIAL FIBRILLATION (ELIQUIS) 9. DILATED CARDIOMYOPATHY 10. LEFT BUNDLE BRANCH BLOCK 11. HYPERTENSION 12. DYSLIPIDEMIA 13. CHF 14. GERD 15. CONSTIPATION 16. DIVERTICULOSIS (LAST COLONOSCOPY 10/07, DR. CALDERON) 17. SEVERE DDD SPINE 18. BORDERLINE DM 19. SEIZURES IN CHILDHOOD 20. HEADACHES 21. DEPRESSION/ANXIETY 22. CATARACT EXTRACTIONS 23. TONSILLECTOMY 24. HYSTERECTOMY, 1973. BREAST CANCER S/P LEFT MASTECTOMY, 2006 DISCHARGE INSTRUCTIONS: Followup appointment with Dr. Bajwa on 10/21/17 at 9:30 a.m. Return to [facility] outpatient on 10/21/17 at 9 a.m. for a PFT. MEDICATIONS AT DISCHARGE: Eliquis 5 mg p.o. b.i.d. [place] Lipitor 40 mg p.o. daily [place] Klonopin 0.5 mg p.o. daily [place] Catapres 0.1 mg p.o. b.i.d. [place] Cardizem 120 mg p.o. q.12hr [place] Hyzaar 50-12.5mg tab) two tab p.o. daily [place] Prilosec 20 mg p.o. q.d a.c. [place] Paxil 30 mg p.o. daily [place] Ultram 50 mg p.o. b.i.d. p.r.n. MEDICATION CHANGES: None See prescriptions NEW PRESCRIPTIONS: Keflex 500 mg, take one capsule by mouth three times daily for 5 days Prednisone 10 mg, take one tablet by mouth with food twice daily for 5 days DIET INSTRUCTIONS: Healthy Heart ACTIVITY: Get plenty of rest at home. Gradually increase your activity level according to your toleration. SMOKING: Nonsmoker DISEASE SPECIFIC EDUCATION: Influenza A and prevention of spread Dehydration/weakness Syncopal episodes Bronchitis Home medications New prescriptions Adverse effects associated with intermediate steroid use Follow up HOSPITAL COURSE: This is a 67-year-old white female who presented to the emergency room with cough, congestion, fever and shortness of breath. She was experiencing some pain with coughing. She has a history of pneumonia. She had a fever of 100 when she was admitted. She was tested for influenza and was positive for Influenza A. Chest x-ray also showed possible early developing pneumonia on the left lung. She was admitted, started on Rocephin 1 gm IV daily along with Xopenex neb treatments q.6hr scheduled and Solu-Cortef 80 mg IV q.8hr. She was also put on Zithromax 500 mg p.o. daily for the next 3 days. Her home medications were continued. We did 30 mg of Toradol IV q.8hr for the pleuritic type pain. She does have a history of atrial fib and was on telemetry during her hospital stay. Her Eliquis was continued. She is on this twice daily. After the first night she said that she was experiencing some extreme shakiness and weakness with the treatments so we decreased the strength of the nebulizer to Xopenex 0.63 1/2 strength and made this q.8hr and also decreased her Solu-Medrol to 40 mg IV q.12hr. She has tolerated the adjustment well. Her telemetry showed primarily sinus rhythm while she has been here. She has not had a fever since admission. Her cough has slowly improved. She does have underlying COPD and it has taken quite some time for her to get over her weakness and shortness of breath. For the past 48 hours she has been able to get up and about and with experiencing extreme shortness of breath with exertion. She does not wear 02 at home but has initially had to be on oxygen at 1 to 2L. Today, on day of discharge, her pulse ox is 96% on room air. Blood pressure has been steady at 150/80, temperature 97.9. She was on IV fluids initially as she did have some mild dehydration. She was on Normal Saline at 75 cc/hr for approximately 2 days. She has been eating well the past 48 hours, 75 to 100% of her meals. Today , on day of discharge, white count 17,000 elevated likely due to steroid use. Hemoglobin 12.2, hematocrit 34.8, sodium 135, potassium 3.8, BUN 20, creatinine 0.73. Vital signs are stable. Labs have been stable. Will discharge her home on Keflex 500 mg t.i.d. for the next five days along with Prednisone 10 mg b.i.d. for the next five days. Will also send her home with [facility]. Will followup with her later on this week. TIME SPENT: More than 60 minutes. MTDD
== END 2017-10-13 12:36 | disposition home or self-care (01) | DRG 194 ==
LOC: ED 12:25 → MEDSURG B 14:34
PROVIDERS: ADMIT Internal Medicine; ATTEND Internal Medicine
DX: J10.1 Influenza due to other identified influenza virus with other respiratory manifestations (principal); I42.0 Dilated cardiomyopathy; J18.9 Pneumonia, unspecified organism; J20.9 Acute bronchitis, unspecified; R53.1 Weakness; R55 Syncope and collapse; I48.91 Unspecified atrial fibrillation; I25.10 Atherosclerotic heart disease of native coronary artery without angina pectoris; E11.9 Type 2 diabetes mellitus without complications; E86.0 Dehydration; E87.6 Hypokalemia; I50.9 Heart failure, unspecified; I51.7 Cardiomegaly; R00.8 Other abnormalities of heart beat; K21.9 Gastro-esophageal reflux disease without esophagitis; K59.00 Constipation, unspecified; K57.90 Diverticulosis of intestine, part unspecified, without perforation or abscess without bleeding; R51 Headache; F41.8 Other specified anxiety disorders; I49.3 Ventricular premature depolarization; Z79.01 Long term (current) use of anticoagulants; Z79.899 Other long term (current) drug therapy; Z85.3 Personal history of malignant neoplasm of breast; Z95.5 Presence of coronary angioplasty implant and graft; Z86.69 Personal history of other diseases of the nervous system and sense organs; Z90.12 Acquired absence of left breast and nipple
CPT/HCPCS: 36415; 80053; 82550; 82803; 84484; 85007; 85025; 87502; 93005; 93010; 94640; 96365; 96375; 99284

== ENCOUNTER 2017-10-31 08:59 | Outpatient (CLI) | END 2017-10-31 09:00 | disposition home or self-care (01) | LOC: CAR 08:59 | PROVIDERS: ATTEND Internal Medicine | DX: J40 Bronchitis, not specified as acute or chronic (principal); R06.02 Shortness of breath; R05 Cough ==

== ENCOUNTER 2019-06-01 18:04 | Inpatient (IN) ==
--- NOTE | 2019-06-01 19:02 | ED.PDOC ---
General <EMILY GARCIA DO - Last Filed: 06/03/19 13:22> ED Provider: Dr. EMILY GARCIA Chief Complaint: Dizziness Stated Complaint: Feeling dizzy when up and about> Onset yesterday. Was up and active but became fatigued and dizzy as the day went on. Especially lightheaded when changing position. States feels as if she has the flu. Denies N-V_D Time Seen by Physician: 18:45 Mode of Arrival: Wheelchair Information Source: Patient and Family Exam Limitations: No limitations Primary Care Provider: CRISTINA BAJWA Nursing and Triage Documentation Reviewed and Agree: Yes Does patient meet sepsis criteria?: No System Inflammatory Response Syndrome: Not Applicable Sepsis Protocol: For patient's 13 years and over: Temp is 96.8 and below OR 101 and greater Pulse >90 BPM Resp >20/minute Acutely Altered Mental Status Are patient's symptoms suggestive of a new infection, such as: -Pneumonia -Skin, Soft Tissue -Endocarditis -UTI -Bone, Joint Infection -Implantable Device -Acute Abdominal Infection -Wound Infection -Meningitis -Blood Stream Catheter Infection -Unknown Neurological Complaint Exam <DO Xochilt SCHWARZ Last Filed: 06/03/19 13:22> Dizziness Complaint/Exam Last Known Well: 2 DAYS Onset: Gradual Duration: 24 HR Symptoms Are: Still present Timing: Intermittent Episodes Lasting: Minutes Initial Severity: Moderate Current Severity: Moderate Character: Reports Lightheaded and Weak Aggravating: Reports Exertion and Position change Alleviating: Reports Rest and Lying down Associated Signs and Symptoms: Denies Nausea, Vomiting, Diaphoresis, Tinnitus, Chest pain, Short of air, Palpitations, Unsteady gait, GI blood loss, Visual changes, Decreased oral intake, Change in medication, Change in diet, OTC meds and Loss of balance Cardiac Risk Factors: Reports Hypertension, Diabetes, Elevated lipids, CHF and CAD CVA Risk Factors: Reports Hypertension and PVD Related Surgical History: Reports Cardiac Cath JVD Present: No Carotid Bruit Present: No Nystagmus Present: No Gag Reflex Present: Yes Meningeal Signs Positive: No Focal Weakness: Present None Focal Sensory Loss: Present None Gait: Normal [id number]: Normal Findings Romberg Test Positive: No Babinski Sign: Negative Right and Negative Left Heel to Toe Normal: Yes Differential Diagnoses: CAD, Dysrhythmia, BPPV and Metabolic abnormalities Review of Systems <DO Xochilt SCHWARZ Filed: 06/03/19 13:22> Review Of Systems Constitutional: Reports Weakness Eyes: Reports No symptoms Ears, Nose, Mouth, Throat: Reports No symptoms Respiratory: Reports No symptoms Cardiac: Reports No symptoms GI: Reports No symptoms : Reports No symptoms Musculoskeletal: Reports No symptoms Skin: Reports No symptoms Neurological: Reports No symptoms Endocrine: Reports No symptoms Hematologic/Lymphatic: Reports No symptoms All Other Systems: Reviewed and Negative PFSH <EMILY GARCIA DO - Last Filed: 06/03/19 13:22> Medical History Arthritis (Acute) Atrial fibrillation (Acute) Diabetes (Acute) GERD (gastroesophageal reflux disease) (Acute) Social History (Updated 06/01/19 @ 22:54 by JADE LOTT RN) Smoking and tobacco status: Never smoker Alcohol intake: current Alcohol intake frequency: holidays/special occasions only Counseling given: No Substance use type: does not use Counseling given: No Household members: spouse Housing: house Marital status: Lives independently: Yes Number of children: 2 Financial difficulty paying for basics: not very hard Current occupational status: employed and retired Previous occupational history: Social Work Pets and animals: Yes History of recent travel: No Do you think of yourself as: straight/heterosexual Current gender identity: female Current diet type/program: regular Well-balanced diet: rarely Water heater temperature set < 120 degrees: Yes Working smoke detector in home: Yes Fire extinguisher in home: Yes Carbon monoxide detector in home: Yes Firearms in home: No What type of physical activity do you participate in?: none Female Reproductive History Menstrual Hx Hysterectomy: No Hx Tubal Ligation: No Physical Exam <EMILY GARCIA DO - Last Filed: 06/03/19 13:22> Physical Exam Appearance: Well-appearing, No pain distress and Well-nourished Ill-appearing: None Pain Distress: None Eyes: JIM, EOMI and Conjunctiva clear ENT: Ears normal, Nose normal and Oropharynx normal Neck: Supple Respiratory: Airway patent, Breath sounds clear, Breath sounds equal and Respirations nonlabored Cardiovascular: RRR, Pulses normal, No rub, No murmur and Irregular rhythm GI/: Soft, Nontender, No masses, Bowel sounds normal and No Organomegaly Musculoskeletal: Normal strength, ROM intact, No edema and No calf tenderness Skin: Warm, Dry and Normal color Neurological: Sensation intact, Motor intact, Reflexes intact, Cranial nerves intact, Alert and Oriented Psychiatric: Affect appropriate and Mood appropriate Interpretation <EMILY GARCIA DO - Last Filed: 06/03/19 13:22> EKG Interpretation Time of EKG #1: 19:04 Rhythm: Other (afib) Ectopy: None [place]: Left ST Segment: Other (LBBB/LAD) <ISH RAMOS MD - Last Filed: 06/01/19 21:37> Re-Evaluation Time of Re-Evaluation: 20:22 Status: Unchanged Additional Comments: tropinin, lactic acid and UA ordered. Physician Notification <EMILY GARCIA DO - Last Filed: 06/03/19 13:22> Case Discussed Physician Notified: DR Perea-accepted patient hand off Time of Notification: 19:15 <ISH RAMOS MD - Last Filed: 06/01/19 21:37> Critical Care Note Total Time (mins): 0 Comments: Lab work revealed an elevated lactic acid, acute renal insufficiency and and equivocal urine. Initial blood pressures were borerline, however repeat pressures without treatment climbed into normal range. Possible complicated UTI. Admit to obs. IVF and IV rocephin. Blood cultures pending. Repeat labs in the AM. carotid US tomorrow. Potassium marginally low, oral replacement. I discussed the case with Dr Bajwa who agreed to accept the admission. Decrease clonidine to BID from TID and, hold HCTZ. Continue diltiazem and losartan. Course <EMILY GARCIA DO - Last Filed: 06/03/19 13:22> Course Hematology/Chemistry: 06/03/19 04:41 06/03/19 04:41 Orders, Labs, Meds: Lab Review 06/01/19 06/01/19 06/01/19 18:25 19:05 19:05 WBC 9.96 RBC 4.99 Hgb 15.3 Hct 45.3 MCV 90.8 MCH 30.7 MCHC 33.8 RDW Coeff of [place] 13.2 Plt Count 425 Immature Gran % (Auto) 1.1 Neut % (Auto) 73.0 Lymph % (Auto) 13.7 [place] % (Auto) 11.4 H Eos % (Auto) 0.5 Baso % (Auto) 0.3 Immature Gran # (Auto) 0.1 Neut # (Auto) 7.3 H Lymph # (Auto) 1.4 [place] # (Auto) 1.1 Eos # (Auto) 0.1 Baso # (Auto) 0.0 Sodium 132.1 L Potassium 3.30 L Chloride 94.3 L Carbon Dioxide 24.5 Anion Gap 16.60 BUN 22.6 H Creatinine 1.43 H Estimated GFR (MDRD) 36.00 BUN/Creatinine Ratio 15.80 Glucose 173.7 H Lactic Acid Calcium 9.23 Total Bilirubin 0.67 AST 21.4 ALT 22.0 Alkaline Phosphatase 72.4 Troponin I Total Protein 6.64 Albumin 4.04 Globulin 2.60 Albumin/Globulin Ratio 1.55 TSH Thyroxine (T4) Urine Color Urine Clarity Urine pH Ur Specific [place] Urine Protein Urine Glucose (UA) Urine Ketones Urine Blood Urine Nitrite Urine Bilirubin Urine Urobilinogen Ur Leukocyte Esterase Urine Microscopic WBC Ur Squamous Epith Cells Ur Renal Epithelial Cell Amorphous Sediment Hyaline Casts Fine Granular Casts Influ A Molecular Assay Negative by naat Influ B Molecular Assay Negative by naat 06/01/19 06/01/19 06/01/19 19:05 19:05 19:05 WBC RBC Hgb Hct MCV MCH MCHC RDW Coeff of [place] Plt Count Immature Gran % (Auto) Neut % (Auto) Lymph % (Auto) [place] % (Auto) Eos % (Auto) Baso % (Auto) Immature Gran # (Auto) Neut # (Auto) Lymph # (Auto) [place] # (Auto) Eos # (Auto) Baso # (Auto) Sodium Potassium Chloride Carbon Dioxide Anion Gap BUN Creatinine Estimated GFR (MDRD) BUN/Creatinine Ratio Glucose Lactic Acid Calcium Total Bilirubin AST ALT Alkaline Phosphatase Troponin I 0.076 Total Protein Albumin Globulin Albumin/Globulin Ratio TSH 1.750 Thyroxine (T4) 6.8 Urine Color Urine Clarity Urine pH Ur Specific [place] Urine Protein Urine Glucose (UA) Urine Ketones Urine Blood Urine Nitrite Urine Bilirubin Urine Urobilinogen Ur Leukocyte Esterase Urine Microscopic WBC Ur Squamous Epith Cells Ur Renal Epithelial Cell Amorphous Sediment Hyaline Casts Fine Granular Casts Influ A Molecular Assay Influ B Molecular Assay 06/01/19 06/01/19 19:55 20:05 WBC RBC Hgb Hct MCV MCH MCHC RDW Coeff of [place] Plt Count Immature Gran % (Auto) Neut % (Auto) Lymph % (Auto) [place] % (Auto) Eos % (Auto) Baso % (Auto) Immature Gran # (Auto) Neut # (Auto) Lymph # (Auto) [place] # (Auto) Eos # (Auto) Baso # (Auto) Sodium Potassium Chloride Carbon Dioxide Anion Gap BUN Creatinine Estimated GFR (MDRD) BUN/Creatinine Ratio Glucose Lactic Acid 3.04 H Calcium Total Bilirubin AST ALT Alkaline Phosphatase Troponin I Total Protein Albumin Globulin Albumin/Globulin Ratio TSH Thyroxine (T4) Urine Color Yellow Urine Clarity Slightly Urine pH 7.0 Ur Specific [place] 1.020 Urine Protein 1+ Urine Glucose (UA) Negative Urine Ketones Trace Urine Blood Negative Urine Nitrite Negative Urine Bilirubin 1+ Urine Urobilinogen 0.2 Ur Leukocyte Esterase Trace Urine Microscopic WBC 5-10 Ur Squamous Epith Cells 0-2 Ur Renal Epithelial Cell 2-5 Amorphous Sediment Trace Hyaline Casts 0-2 Fine Granular Casts 0-2 Influ A Molecular Assay Influ B Molecular Assay Orders Category Date Time Status EKG-(ED ONLY) Stat CARDIO 06/01/19 18:49 Completed CBC W/ AUTO DIFF Stat LAB 06/01/19 19:05 Completed CMP [COMPREHENSIVE METABOLIC PANEL] Stat LAB 06/01/19 19:05 Completed FLU A & B MOLECULAR [FLU A/B MOLECULAR] Stat LAB 06/01/19 18:25 Completed LACTIC ACID Stat LAB 06/01/19 20:05 Completed MOLECULAR GROUP A STREP Stat LAB 06/01/19 18:25 Completed TROPONIN I Stat LAB 06/01/19 19:05 Completed URINALYSIS C & S IF INDICATED Stat LAB 06/01/19 19:55 Completed URINE CULTURE Stat LAB 06/01/19 20:16 Completed CHEST, 1V AP ONLY Stat RADS 06/01/19 18:49 Completed Medications Generic Name Dose Route Start Last Admin Trade Name Freq PRN Reason Stop Dose Admin Apixaban 5 mg 06/03/19 09:00 06/03/19 08:51 Eliquis PO 5 mg BID [place] Administration Atorvastatin Calcium 40 mg 06/03/19 21:00 Lipitor PO BEDTIME [place] Clonidine 0.1 mg 06/03/19 09:00 06/03/19 08:51 Catapres PO 0.1 mg BID [place] Administration Diltiazem HCl 120 mg 06/03/19 09:00 06/03/19 08:50 Cardizem PO 120 mg Q12HR [place] Administration CEFTRIAXONE/D5W 1 GM PREMIX 1 gm in 50 mls @ 75 mls/hr 06/02/19 21:00 05/11 20:21 Rocephin 1 Gm/50 Ml D5w IV 06/04/19 20:59 75 mls/hr BEDTIME [place] Administration Sodium Chloride 1,000 mls @ 75 mls/hr 06/02/19 08:22 06/03/19 03:02 Sodium Chloride IV 75 mls/hr .[id number] [place] Administration Losartan Potassium 100 mg 06/02/19 09:00 06/03/19 08:50 Cozaar PO 100 mg DAILY [place] Administration Omeprazole 20 mg 06/03/19 17:00 Prilosec PO BIDAC [place] Paroxetine HCl 30 mg 06/03/19 21:00 Paxil PO BEDTIME [place] Potassium Chloride 20 meq 06/03/19 09:00 06/03/19 08:53 K-Dur PO 20 meq DAILYWM [place] Administration Sodium Chloride 1 syr 06/01/19 21:27 Saline Flush IVF PRN PRN To flush IV Tramadol HCl 50 mg 06/03/19 08:00 Ultram PO BID PRN Pain Discontinued Medications Generic Name Dose Route Start Last Admin Trade Name Freq PRN Reason Stop Dose Admin Alprazolam 0.5 mg 06/02/19 00:56 06/02/19 01:08 Xanax PO 06/02/19 00:57 0.5 mg ONCE STA Administration Apixaban 5 mg 06/01/19 21:00 06/02/19 20:19 Eliquis PO 5 mg BID [place] Administration Atorvastatin Calcium 40 mg 06/02/19 09:00 Lipitor PO DAILY [place] Atorvastatin Calcium 40 mg 06/02/19 01:00 06/02/19 20:17 Lipitor PO 40 mg BEDTIME [place] Administration Clonidine 0.1 mg 06/01/19 21:00 06/02/19 20:17 Catapres PO 0.1 mg BID [place] Administration Digoxin 250 mcg 06/02/19 00:55 06/02/19 01:07 Lanoxin IVP 06/02/19 00:56 250 mcg ONCE STA Administration Diltiazem HCl 120 mg 06/01/19 21:00 06/02/19 20:16 Cardizem PO 120 mg Q12HR [place] Administration Sodium Chloride 1,000 mls @ 125 mls/hr 06/01/19 21:00 06/02/19 11:48 Sodium Chloride IV Not Given .Q8H [place] CEFTRIAXONE/D5W 1 GM PREMIX 1 gm in 50 mls @ 75 mls/hr 06/01/19 21:00 06/01/19 23:48 Rocephin 1 Gm/50 Ml D5w IV 06/04/19 20:59 75 mls/hr DAILY [place] Administration Omeprazole 20 mg 06/02/19 09:00 06/02/19 11:47 Prilosec PO Not Given DAILY [place] Omeprazole 20 mg 06/02/19 09:15 06/03/19 05:36 Prilosec PO 20 mg BIDAC [place] Administration Paroxetine HCl 30 mg 06/02/19 09:00 Paxil PO DAILY [place] Paroxetine HCl 30 mg 06/02/19 00:30 06/02/19 20:16 Paxil PO 30 mg BEDTIME [place] Administration Potassium Chloride 20 meq 06/01/19 21:00 06/01/19 23:49 K-Dur PO 20 meq BID [place] Administration Potassium Chloride 20 meq 06/02/19 09:00 06/02/19 20:15 K-Dur PO 20 meq TID [place] Administration Potassium Chloride 20 meq 06/03/19 08:00 K-Dur PO TIDWM [place] Tramadol HCl 50 mg 06/01/19 20:52 06/02/19 00:46 Ultram PO 50 mg BID PRN Administration Pain Vital Signs: Temp Pulse Resp BP Pulse Ox 06/01/19 18:04 99.5 F 64 20 111/57 L 95 <ISH RAMOS MD - Last Filed: 06/01/19 21:37> Course Orders, Labs, Meds: Lab Review 06/01/19 06/01/19 06/01/19 18:25 19:05 19:05 WBC 9.96 RBC 4.99 Hgb 15.3 Hct 45.3 MCV 90.8 MCH 30.7 MCHC 33.8 RDW Coeff of [place] 13.2 Plt Count 425 Immature Gran % (Auto) 1.1 Neut % (Auto) 73.0 Lymph % (Auto) 13.7 [place] % (Auto) 11.4 H Eos % (Auto) 0.5 Baso % (Auto) 0.3 Immature Gran # (Auto) 0.1 Neut # (Auto) 7.3 H Lymph # (Auto) 1.4 [place] # (Auto) 1.1 Eos # (Auto) 0.1 Baso # (Auto) 0.0 Sodium 132.1 L Potassium 3.30 L Chloride 94.3 L Carbon Dioxide 24.5 Anion Gap 16.60 BUN 22.6 H Creatinine 1.43 H Estimated GFR (MDRD) 36.00 BUN/Creatinine Ratio 15.80 Glucose 173.7 H Lactic Acid Calcium 9.23 Total Bilirubin 0.67 AST 21.4 ALT 22.0 Alkaline Phosphatase 72.4 Troponin I Total Protein 6.64 Albumin 4.04 Globulin 2.60 Albumin/Globulin Ratio 1.55 TSH Thyroxine (T4) Urine Color Urine Clarity Urine pH Ur Specific [place] Urine Protein Urine Glucose (UA) Urine Ketones Urine Blood Urine Nitrite Urine Bilirubin Urine Urobilinogen Ur Leukocyte Esterase Urine Microscopic WBC Ur Squamous Epith Cells Ur Renal Epithelial Cell Amorphous Sediment Hyaline Casts Fine Granular Casts Influ A Molecular Assay Negative by naat Influ B Molecular Assay Negative by naat 06/01/19 06/01/19 06/01/19 19:05 19:05 19:05 WBC RBC Hgb Hct MCV MCH MCHC RDW Coeff of [place] Plt Count Immature Gran % (Auto) Neut % (Auto) Lymph % (Auto) [place] % (Auto) Eos % (Auto) Baso % (Auto) Immature Gran # (Auto) Neut # (Auto) Lymph # (Auto) [place] # (Auto) Eos # (Auto) Baso # (Auto) Sodium Potassium Chloride Carbon Dioxide Anion Gap BUN Creatinine Estimated GFR (MDRD) BUN/Creatinine Ratio Glucose Lactic Acid Calcium Total Bilirubin AST ALT Alkaline Phosphatase Troponin I 0.076 Total Protein Albumin Globulin Albumin/Globulin Ratio TSH 1.750 Thyroxine (T4) 6.8 Urine Color Urine Clarity Urine pH Ur Specific [place] Urine Protein Urine Glucose (UA) Urine Ketones Urine Blood Urine Nitrite Urine Bilirubin Urine Urobilinogen Ur Leukocyte Esterase Urine Microscopic WBC Ur Squamous Epith Cells Ur Renal Epithelial Cell Amorphous Sediment Hyaline Casts Fine Granular Casts Influ A Molecular Assay Influ B Molecular Assay 06/01/19 06/01/19 19:55 20:05 WBC RBC Hgb Hct MCV MCH MCHC RDW Coeff of [place] Plt Count Immature Gran % (Auto) Neut % (Auto) Lymph % (Auto) [place] % (Auto) Eos % (Auto) Baso % (Auto) Immature Gran # (Auto) Neut # (Auto) Lymph # (Auto) [place] # (Auto) Eos # (Auto) Baso # (Auto) Sodium Potassium Chloride Carbon Dioxide Anion Gap BUN Creatinine Estimated GFR (MDRD) BUN/Creatinine Ratio Glucose Lactic Acid 3.04 H Calcium Total Bilirubin AST ALT Alkaline Phosphatase Troponin I Total Protein Albumin Globulin Albumin/Globulin Ratio TSH Thyroxine (T4) Urine Color Yellow Urine Clarity Slightly Urine pH 7.0 Ur Specific [place] 1.020 Urine Protein 1+ Urine Glucose (UA) Negative Urine Ketones Trace Urine Blood Negative Urine Nitrite Negative Urine Bilirubin 1+ Urine Urobilinogen 0.2 Ur Leukocyte Esterase Trace Urine Microscopic WBC 5-10 Ur Squamous Epith Cells 0-2 Ur Renal Epithelial Cell 2-5 Amorphous Sediment Trace Hyaline Casts 0-2 Fine Granular Casts 0-2 Influ A Molecular Assay Influ B Molecular Assay Orders Category Date Time Status EKG-(ED ONLY) Stat CARDIO 06/01/19 18:49 Completed CBC W/ AUTO DIFF Stat LAB 06/01/19 19:05 Completed CMP [COMPREHENSIVE METABOLIC PANEL] Stat LAB 06/01/19 19:05 Completed FLU A & B MOLECULAR [FLU A/B MOLECULAR] Stat LAB 06/01/19 18:25 Completed LACTIC ACID Stat LAB 06/01/19 20:05 Completed MOLECULAR GROUP A STREP Stat LAB 06/01/19 18:25 Completed TROPONIN I Stat LAB 06/01/19 19:05 Completed URINALYSIS C & S IF INDICATED Stat LAB 06/01/19 19:55 Completed URINE CULTURE Stat LAB 06/01/19 20:16 Completed CHEST, 1V AP ONLY Stat RADS 06/01/19 18:49 Completed Medications Generic Name Dose Route Start Last Admin Trade Name Freq PRN Reason Stop Dose Admin Apixaban 5 mg 06/03/19 09:00 06/03/19 08:51 Eliquis PO 5 mg BID [place] Administration Atorvastatin Calcium 40 mg 06/03/19 21:00 Lipitor PO BEDTIME [place] Clonidine 0.1 mg 06/03/19 09:00 06/03/19 08:51 Catapres PO 0.1 mg BID [place] Administration Diltiazem HCl 120 mg 06/03/19 09:00 06/03/19 08:50 Cardizem PO 120 mg Q12HR [place] Administration CEFTRIAXONE/D5W 1 GM PREMIX 1 gm in 50 mls @ 75 mls/hr 06/02/19 21:00 06/02/19 20:21 Rocephin 1 Gm/50 Ml D5w IV 06/04/19 20:59 75 mls/hr BEDTIME [place] Administration Sodium Chloride 1,000 mls @ 75 mls/hr 06/02/19 08:22 06/03/19 03:02 Sodium Chloride IV 75 mls/hr .[id number] [place] Administration Losartan Potassium 100 mg 06/02/19 09:00 06/03/19 08:50 Cozaar PO 100 mg DAILY [place] Administration Omeprazole 20 mg 06/03/19 17:00 Prilosec PO BIDAC [place] Paroxetine HCl 30 mg 06/03/19 21:00 Paxil PO BEDTIME [place] Potassium Chloride 20 meq 06/03/19 09:00 06/03/19 08:53 K-Dur PO 20 meq DAILYWM [place] Administration Sodium Chloride 1 syr 06/01/19 21:27 Saline Flush IVF PRN PRN To flush IV Tramadol HCl 50 mg 06/03/19 08:00 Ultram PO BID PRN Pain Discontinued Medications Generic Name Dose Route Start Last Admin Trade Name Freq PRN Reason Stop Dose Admin Alprazolam 0.5 mg 06/02/19 00:56 06/02/19 01:08 Xanax PO 06/02/19 00:57 0.5 mg ONCE STA Administration Apixaban 5 mg 06/01/19 21:00 06/02/19 20:19 Eliquis PO 5 mg BID [place] Administration Atorvastatin Calcium 40 mg 06/02/19 09:00 Lipitor PO DAILY [place] Atorvastatin Calcium 40 mg 06/02/19 01:00 06/02/19 20:17 Lipitor PO 40 mg BEDTIME [place] Administration Clonidine 0.1 mg 06/01/19 21:00 06/02/19 20:17 Catapres PO 0.1 mg BID [place] Administration Digoxin 250 mcg 06/02/19 00:55 06/02/19 01:07 Lanoxin IVP 06/02/19 00:56 250 mcg ONCE STA Administration Diltiazem HCl 120 mg 06/01/19 21:00 06/02/19 20:16 Cardizem PO 120 mg Q12HR [place] Administration Sodium Chloride 1,000 mls @ 125 mls/hr 06/01/19 21:00 06/02/19 11:48 Sodium Chloride IV Not Given .Q8H [place] CEFTRIAXONE/D5W 1 GM PREMIX 1 gm in 50 mls @ 75 mls/hr 06/01/19 21:00 06/01/19 23:48 Rocephin 1 Gm/50 Ml D5w IV 06/04/19 20:59 75 mls/hr DAILY [place] Administration Omeprazole 20 mg 06/02/19 09:00 06/02/19 11:47 Prilosec PO Not Given DAILY [place] Omeprazole 20 mg 06/02/19 09:15 06/03/19 05:36 Prilosec PO 20 mg BIDAC [place] Administration Paroxetine HCl 30 mg 06/02/19 09:00 Paxil PO DAILY [place] Paroxetine HCl 30 mg 06/02/19 00:30 06/02/19 20:16 Paxil PO 30 mg BEDTIME [place] Administration Potassium Chloride 20 meq 06/01/19 21:00 06/01/19 23:49 K-Dur PO 20 meq BID [place] Administration Potassium Chloride 20 meq 06/02/19 09:00 06/02/19 20:15 K-Dur PO 20 meq TID [place] Administration Potassium Chloride 20 meq 06/03/19 08:00 K-Dur PO TIDWM [place] Tramadol HCl 50 mg 06/01/19 20:52 06/02/19 00:46 Ultram PO 50 mg BID PRN Administration Pain Vital Signs: Temp Pulse Resp BP Pulse Ox 06/01/19 18:04 99.5 F 64 20 111/57 L 95 Discharge Plan Discharge Patient Disposition: PLACED OBSERVATION Discharge Problem: Dizzinesses, Acute renal insufficiency ED Provider: ISH RAMOS Condition: Good Discharge Date/Time: 06/01/19 21:47
--- NOTE | 2019-06-01 19:36 | DI ---
EXAM: Chest, one-view HISTORY: Flu symptoms FINDINGS: Cardiac and mediastinal contours are normal. Pulmonary vasculature is normal. Lungs are clear. Bony thorax is unremarkable. IMPRESSION: Within normal limits
[2019-06-01] MEDS ORDERED: ULTRAM PO PRN (20:52)
[2019-06-01] MEDS ORDERED: K-DUR PO SCH (21:00)
[2019-06-01] MEDS ORDERED: ROCEPHIN 1 GM/50 ML D5W 1 GM/50 ML BAG IV SCH (21:00)
[2019-06-01 22:44] VITALS: BMI 31.3
[2019-06-01] MEDS: SODIUM CHLORIDE 1,000 ML IV SCH (23:48)
[2019-06-02] MEDS: CATAPRES PO SCH ×4 (00:43→20:17)
[2019-06-02] MEDS: CARDIZEM PO SCH ×4 (00:43→20:16)
[2019-06-02] MEDS: ELIQUIS PO SCH ×4 (00:44→20:19)
[2019-06-02] MEDS: PAXIL PO SCH ×2 (00:45→20:16)
[2019-06-02] MEDS ORDERED: LANOXIN IVP STA (00:55)
[2019-06-02] MEDS ORDERED: XANAX PO STA (00:56)
[2019-06-02] MEDS: LIPITOR PO SCH ×2 (01:34→20:17)
[2019-06-02] MEDS: SODIUM CHLORIDE 1,000 ML IV SCH ×2 (08:37→11:48)
[2019-06-02] MEDS ORDERED: PAXIL PO SCH (09:00)
[2019-06-02] MEDS ORDERED: PRILOSEC PO SCH ×2 (09:00→21:00)
[2019-06-02] MEDS ORDERED: LIPITOR PO SCH (09:00)
--- NOTE | 2019-06-02 11:03 | PCM.PROG ---
Attending Provider: ATTENDING PROVIDER: Dr. CRISTINA ORDONEZ DATE OF SERVICE: 06/02/19 SUBJECTIVE: This 69 year old /WHITE F was hospitalized 06/01/19 with dehydration with renal insufficiency. The patient had episode of hypotension. Possible UTI. REVIEW OF SYSTEMS: CONSTITUTIONAL: No night sweats. No fatigue, malaise, lethargy. No fever or chills. HEENT: Eyes: No visual changes. No eye pain. No eye discharge. ENT: No runny nose. No epistaxis. No sinus pain. No odynophagia. No congestion. RESPIRATORY: No cough, no congestion. No hemoptysis. No shortness of breath. CARDIOVASCULAR: No angina symptoms. No CHF symptoms. No atypical chest pain for CAD. No palpitations. No orthopnea.. GASTROINTESTINAL: No abdominal pain. No nausea or vomiting. No diarrhea or constipation. No hematemesis. No hematochezia. GENITOURINARY: No urgency. No frequency. No dysuria. No hematuria. No obstructive symptoms. No discharge. No pain. No significant abnormal bleeding. MUSCULOSKELETAL: No musculoskeletal pain; no joint swelling. NEUROLOGICAL: Awake, alert, oriented to time, place and person. No headache. No neck pain. No syncope. No seizures. No dizziness. PSYCHIATRIC: Not anxious. No depression. No suicidal thoughts. No homicidal thoughts. SKIN: No rash. No lesions. No wounds. ENDOCRINE: No unexplained weight loss. No weight gain. HEMATOLOGIC/LYMPHATIC: No anemia. No purpura. No petechiae. No prolonged or excessive bleeding. No palpable lymph nodes. PHYSICAL EXAMINATION: GENERAL: The patient is awake, alert and oriented, lying in bed in no distress. VITAL SIGNS: Temperature 97.8 F, Pulse 87, Respiratory Rate 16, BP 108/68, Pulse Ox 96% HEENT: Head normocephalic, atraumatic. Eyes: Extraocular muscles are intact. Pupils are equal, round and reactive to light and accommodation. Ears: No lesions. Nose appeared normal. Throat: No exudate or erythema. NECK: Supple. No JVD, no carotid bruit. No lymphadenopathy or thyromegaly. LUNGS: Clear to auscultation. Percussion note normal. Chest symmetrical. HEART: S1, S2, no S3. Irregular heart rate with atrial fibrillation. Episode of atrial fibrillation treated with Xanax and IV Lanoxin. No murmurs. No cyanosis or clubbing. No ascites. Pulses: Dorsalis pedis and posterior tibial pulses +1 to +2 both sides. ABDOMEN: Soft. Non-tender. Bowel sounds active. No CVA tenderness. No mass felt. EXTREMITIES: No edema. Full range of motion of all extremities, equal. NEUROLOGIC: No focal deficit. Cranial nerves II through XII are grossly intact. No headache, no double vision or headache. SKIN: Warm and dry. Intact. Turgor-normal. LYMPHATIC: No palpable lymph nodes/no lymphedema. MUSCULOSKELETAL: Normal joints with no swelling. Muscle tone is normal. LAB REVIEW: 06/02/19 05:20 06/02/19 05:20 06/02/19 05:20: Lactic Acid 1.42 D 06/02/19 05:20: Sodium 134.5, Potassium 3.21 L, Chloride 98.1, Carbon Dioxide 27.2, Anion Gap 12.41, BUN 28.4 H, Creatinine 1.57 H, Estimated GFR (MDRD) 32.00, BUN/Creatinine Ratio 18.08, Glucose 112.1 H D, Calcium 8.64, Total Bilirubin 0.47, AST 23.7, ALT 20.6, Alkaline Phosphatase 72.2, Total Protein 6.05 L, Albumin 3.60, Globulin 2.45, Albumin/Globulin Ratio 1.46 06/02/19 05:20: WBC 11.05 H, RBC 4.62, Hgb 14.4, Hct 42.3, MCV 91.6, MCH 31.2 H, MCHC 34.0, RDW Coeff of Zahraa 13.2, Plt Count 355, Immature Gran % (Auto) 0.8, Neut % (Auto) 70.1, Lymph % (Auto) 15.5, [place] % (Auto) 12.2 H, Eos % (Auto) 1.1, Baso % (Auto) 0.3, Immature Gran # (Auto) 0.1, Neut # (Auto) 7.8 H, Lymph # (Auto) 1.7, [place] # (Auto) 1.4, Eos # (Auto) 0.1, Baso # (Auto) 0.0 06/01/19 20:05: Lactic Acid 3.04 H 06/01/19 19:55: Urine Color Yellow, Urine Clarity Slightly, Urine pH 7.0, Ur Specific Gibbs 1.020, Urine Protein 1+, Urine Glucose (UA) Negative, Urine Ketones Trace, Urine Blood Negative, Urine Nitrite Negative, Urine Bilirubin 1+, Urine Urobilinogen 0.2, Ur Leukocyte Esterase Trace, Urine Microscopic WBC 5-10, Ur Squamous Epith Cells 0-2, Ur Renal Epithelial Cell 2-5, Amorphous Sediment Trace, Hyaline Casts 0-2, Fine Granular Casts 0-2 06/01/19 19:05: TSH 1.750 06/01/19 19:05: Troponin I 0.076 06/01/19 19:05: Sodium 132.1 L, Potassium 3.30 L, Chloride 94.3 L, Carbon Dioxide 24.5, Anion Gap 16.60, BUN 22.6 H, Creatinine 1.43 H, Estimated GFR (MDRD) 36.00, BUN/Creatinine Ratio 15.80, Glucose 173.7 H, Calcium 9.23, Total Bilirubin 0.67, AST 21.4, ALT 22.0, Alkaline Phosphatase 72.4, Total Protein 6.64, Albumin 4.04, Globulin 2.60, Albumin/Globulin Ratio 1.55 06/01/19 19:05: WBC 9.96, RBC 4.99, Hgb 15.3, Hct 45.3, MCV 90.8, MCH 30.7, MCHC 33.8, RDW Coeff of Zahraa 13.2, Plt Count 425, Immature Gran % (Auto) 1.1, Neut % (Auto) 73.0, Lymph % (Auto) 13.7, [place] % (Auto) 11.4 H, Eos % (Auto) 0.5, Baso % (Auto) 0.3, Immature Gran # (Auto) 0.1, Neut # (Auto) 7.3 H, Lymph # (Auto) 1.4, [place] # (Auto) 1.1, Eos # (Auto) 0.1, Baso # (Auto) 0.0 06/01/19 18:25: Influ A Molecular Assay Negative by naat, Influ B Molecular Assay Negative by naat ASSESSMENT: Please see below. 1. Dehydration with renal insufficiency 2. Possible UTI 3. Hypokalemia 4. Atrial fibrillation 5. Shortness of breath PLAN: 1. Potassium supplement 2. Ultrasound of kidney 3. Echo 4. PFT Plan and coordination of the patient's care discussed in the presence of Registered Nurse Cardiac Telemetry and nurse. CONDITION: Stable SCRIBED BY: Wivler BAY scribed while in presence of service performed by Dr. CRISTINA ORDONEZ on 06/02/19 ([id number])
[2019-06-02] MEDS: COZAAR PO SCH ×2 (11:46→12:27)
[2019-06-02] MEDS: K-DUR PO SCH ×4 (11:46→20:15)
[2019-06-02] MEDS: PRILOSEC PO SCH ×3 (11:47→16:43)
--- NOTE | 2019-06-02 15:11 | US ---
EXAM: Bilateral carotid artery Doppler History: Presyncope Technique: Multiple sonographic images through the bilateral internal carotid arteries were obtained . Color duplex Doppler was used to interrogate vascular flow. Findings: The right ICA peak systolic velocity is within normal limits measuring 112 cm/sec. The right ICA/cca PSV ratio is moderately elevated at 2.1. The right vertebral artery is patent and demonstrates ante grade flow. Conrad scale images demonstrate no significant plaque buildup within the right internal ca rotid artery. The left ICA peak systolic velocity is within normal limits measuring 80 cm/sec. The left ICA/cca PS V ratio is normal at 1.4. The left vertebral artery is patent and demonstrates antegrade flow. Conrad scale images demonstrate no significant plaque buildup within the left internal carotid artery. Impression: No significant hemodynamic stenosis of the bilateral internal carotid arteries
--- NOTE | 2019-06-02 15:14 | US ---
EXAM: Renal ultrasound. History: Acute renal insufficiency. Technique: Multiple sonographic images through the kidneys were obtained. Color Doppler was used to interrogate vascular flow. Findings: The right kidney measures 10.2 cm in long length demonstrating increased cortical echogenicity withou t evidence for hydronephrosis, mass or shadowing calculus. The left kidney measures 11.4 cm in long length demonstrating increased cortical echogenicity without evidence for hydronephrosis, mass or shadowing calculus. No bladder wall thickening. Impression: Increased cortical echogenicity of bilateral kidneys suggesting medical renal disease.
[2019-06-02] MEDS: ROCEPHIN 1 GM/50 ML D5W 1 GM/50 ML BAG IV SCH (20:21)
[2019-06-03] MEDS: SODIUM CHLORIDE 1,000 ML IV SCH ×3 (03:02→19:54)
[2019-06-03] MEDS: PRILOSEC PO SCH ×2 (05:36→16:57)
[2019-06-03] MEDS ORDERED: ULTRAM PO PRN (08:00)
[2019-06-03] MEDS ORDERED: K-DUR PO SCH (08:00)
[2019-06-03] MEDS: COZAAR PO SCH (08:50)
[2019-06-03] MEDS: CARDIZEM PO SCH ×2 (08:50→20:13)
[2019-06-03] MEDS: CATAPRES PO SCH ×2 (08:51→20:13)
[2019-06-03] MEDS: ELIQUIS PO SCH ×2 (08:51→20:11)
[2019-06-03] MEDS: K-DUR PO SCH (08:53)
--- NOTE | 2019-06-03 09:24 | PCM.PROG ---
Attending Provider: ATTENDING PROVIDER: Dr. CRISTINA ORDONEZ This patient is seen with Lisa Swift, Nurse Practitioner. DATE OF SERVICE: 06/03/19 SUBJECTIVE: This 69 year old /WHITE F was hospitalized 06/01/19. The patient is resting comfortably. Kidney function has improved. No dizziness through the night. Still fatigued with exertion. REVIEW OF SYSTEMS: CONSTITUTIONAL: No night sweats. Fatigue. No fever or chills. HEENT: Eyes: No visual changes. No eye pain. No eye discharge. ENT: No runny nose. No epistaxis. No sinus pain. No odynophagia. No congestion. RESPIRATORY: No cough, no congestion. No hemoptysis. No shortness of breath. CARDIOVASCULAR: No angina symptoms. No CHF symptoms. No atypical chest pain for CAD. No palpitations. No orthopnea.. GASTROINTESTINAL: No abdominal pain. No nausea or vomiting. No diarrhea or constipation. No hematemesis. No hematochezia. GENITOURINARY: No urgency. No frequency. No dysuria. No hematuria. No obstructive symptoms. No discharge. No pain. No significant abnormal bleeding. MUSCULOSKELETAL: No musculoskeletal pain; no joint swelling. NEUROLOGICAL: Awake, alert, oriented to time, place and person. No headache. No neck pain. No syncope. No seizures. No dizziness. PSYCHIATRIC: Not anxious. No depression. No suicidal thoughts. No homicidal thoughts. SKIN: No rash. No lesions. No wounds. ENDOCRINE: No unexplained weight loss. No weight gain. HEMATOLOGIC/LYMPHATIC: No anemia. No purpura. No petechiae. No prolonged or excessive bleeding. No palpable lymph nodes. PHYSICAL EXAMINATION: GENERAL: The patient is awake, alert and oriented, lying in bed in no distress. VITAL SIGNS: Temperature 98.0 F, Pulse 59, Respiratory Rate 17, BP 97/56, Pulse Ox 96% HEENT: Head normocephalic, atraumatic. Eyes: Extraocular muscles are intact. Pupils are equal, round and reactive to light and accommodation. Ears: No lesions. Nose appeared normal. Throat: No exudate or erythema. NECK: Supple. No JVD, no carotid bruit. No lymphadenopathy or thyromegaly. LUNGS: Diminished breath sounds. Clear to auscultation. Percussion note normal. Chest symmetrical. HEART: S1, S2, no S3. Irregular heart rate. Grade I murmur. No cyanosis or clubbing. No ascites. Pulses: Dorsalis pedis and posterior tibial pulses +1 to +2 both sides. ABDOMEN: Soft. Non-tender. Bowel sounds active. No CVA tenderness. No mass felt. EXTREMITIES: No edema. Full range of motion of all extremities, equal. NEUROLOGIC: No focal deficit. Cranial nerves II through XII are grossly intact. No headache, no double vision or headache. SKIN: Not dry. Intact. Turgor-normal. LYMPHATIC: No palpable lymph nodes/no lymphedema. MUSCULOSKELETAL: Normal joints with no swelling. Muscle tone is normal. LAB REVIEW: 06/03/19 04:41 06/03/19 04:41 06/03/19 04:41: Sodium 136.9, Potassium 4.13, Chloride 106.3, Carbon Dioxide 23.7, Anion Gap 11.03, BUN 24.0 H, Creatinine 0.93 D, Estimated GFR (MDRD) 59.00, BUN/Creatinine Ratio 25.80, Glucose 119.7 H, Calcium 8.47, Total Bilirubin 0.45, AST 25.1, ALT 18.9, Alkaline Phosphatase 64.6, Total Protein 5.76 L, Albumin 3.33 L, Globulin 2.43, Albumin/Globulin Ratio 1.37 06/03/19 04:41: WBC 9.36, RBC 4.05 L, Hgb 12.5, Hct 37.8, MCV 93.3, MCH 30.9, MCHC 33.1, RDW Coeff of Zahraa 13.2, Plt Count 322, Immature Gran % (Auto) 0.6, Neut % (Auto) 70.8, Lymph % (Auto) 16.7, [place] % (Auto) 10.1 H, Eos % (Auto) 1.6, Baso % (Auto) 0.2, Immature Gran # (Auto) 0.1, Neut # (Auto) 6.6, Lymph # (Auto) 1.6, [place] # (Auto) 1.0, Eos # (Auto) 0.2, Baso # (Auto) 0.0 06/01/19 19:05: Thyroxine (T4) 6.8 ASSESSMENT: Please see below. 1. Dehydration with renal insufficiency 2. Possible UTI 3. Hypokalemia 4. Atrial fibrillation 5. Shortness of breath PLAN: 1. Continue IV fluids 2. 2D echo Plan and coordination of the patient's care discussed in the presence of Hot Roll Inspector and nurse. SCRIBED BY: Wilver BAY scribed while in presence of service performed by Dr. Ordonez/Lisa Swift APRN on 06/03/19 ([id number])
[2019-06-03] MEDS: ROCEPHIN 1 GM/50 ML D5W 1 GM/50 ML BAG IV SCH (20:15)
[2019-06-03] MEDS ORDERED: LIPITOR PO SCH (21:00)
[2019-06-03] MEDS ORDERED: PAXIL PO SCH (21:00)
[2019-06-04] MEDS: SODIUM CHLORIDE 1,000 ML IV SCH (03:07)
[2019-06-04 05:04] VITALS: BP 124/63; TEMP 97.6
[2019-06-04] MEDS: PRILOSEC PO SCH (05:57)
[2019-06-04] MEDS ORDERED: IMODIUM PO STA (08:38)
[2019-06-04] MEDS ORDERED: IMODIUM ONE (08:55)
[2019-06-04] MEDS ORDERED: KEFLEX ONE (08:55)
[2019-06-04] MEDS: CATAPRES PO SCH (09:00)
[2019-06-04] MEDS: ELIQUIS PO SCH (09:00)
[2019-06-04] MEDS ORDERED: KEFLEX PO SCH (09:00)
[2019-06-04] MEDS: COZAAR PO SCH (09:00)
[2019-06-04] MEDS: CARDIZEM PO SCH (09:00)
[2019-06-04] MEDS: K-DUR PO SCH (09:00)
--- NOTE | 2019-06-04 09:34 | PCM.PROG ---
Attending Provider: ATTENDING PROVIDER: Dr. CRISTINA ORDONEZ This patient is seen with Lisa Swift, Nurse Practitioner. DATE OF SERVICE: 06/04/19 SUBJECTIVE: This 69 year old /WHITE F was hospitalized 06/01/19. The patient is resting comfortably. Kidney function has improved. No dizziness. All tests have been negative. Her symptoms likely are due to dehydration. REVIEW OF SYSTEMS: CONSTITUTIONAL: No night sweats. Fatigue. No fever or chills. Weakness. HEENT: Eyes: No visual changes. No eye pain. No eye discharge. ENT: No runny nose. No epistaxis. No sinus pain. No odynophagia. No congestion. RESPIRATORY: No cough, no congestion. No hemoptysis. No shortness of breath. CARDIOVASCULAR: No angina symptoms. No CHF symptoms. No atypical chest pain for CAD. No palpitations. No orthopnea.. GASTROINTESTINAL: No abdominal pain. No nausea or vomiting. No diarrhea or c onstipation. No hematemesis. No hematochezia. GENITOURINARY: No urgency. No frequency. No dysuria. No hematuria. No obstructive symptoms. No discharge. No pain. No significant abnormal bleeding. MUSCULOSKELETAL: No musculoskeletal pain; no joint swelling. NEUROLOGICAL: Awake, alert, oriented to time, place and person. No headache. No neck pain. No syncope. No seizures. No dizziness. PSYCHIATRIC: Not anxious. No depression. No suicidal thoughts. No homicidal thoughts. SKIN: No rash. No lesions. No wounds. ENDOCRINE: No unexplained weight loss. No weight gain. HEMATOLOGIC/LYMPHATIC: No anemia. No purpura. No petechiae. No prolonged or excessive bleeding. No palpable lymph nodes. PHYSICAL EXAMINATION: GENERAL: The patient is awake, alert and oriented, lying/sitting in bed in no distress. VITAL SIGNS: Temperature 97.6 F, Pulse 57, Respiratory Rate 16, BP 124/63, Pulse Ox 94% HEENT: Head normocephalic, atraumatic. Eyes: Extraocular muscles are intact. Pupils are equal, round and reactive to light and accommodation. Ears: No lesions. Nose appeared normal. Throat: No exudate or erythema. NECK: Supple. No JVD, no carotid bruit. No lymphadenopathy or thyromegaly. LUNGS: Clear to auscultation. Percussion note normal. Chest symmetrical. HEART: S1, S2, no S3. No murmurs. Irregular heart rate. No cyanosis or clubbing. No ascites. Pulses: Dorsalis pedis and posterior tibial pulses +1 to +2 both sides. ABDOMEN: Soft. Non-tender. Bowel sounds active. No CVA tenderness. No mass felt. EXTREMITIES: No edema. Full range of motion of all extremities, equal. NEUROLOGIC: No focal deficit. Cranial nerves II through XII are grossly intact. No headache, no double vision or headache. SKIN: Not dry. Intact. Turgor-normal. LYMPHATIC: No palpable lymph nodes/no lymphedema. MUSCULOSKELETAL: Normal joints with no swelling. Muscle tone is normal. LAB REVIEW: 06/04/19 04:53 06/04/19 04:53 06/04/19 04:53: Sodium 139.4, Potassium 3.67, Chloride 109.9 H, Carbon Dioxide 25.6, Anion Gap 7.57, BUN 12.4, Creatinine 0.68, Estimated GFR (MDRD) 85.00, BUN/Creatinine Ratio 18.23, Glucose 104.1, Calcium 8.21 L, Total Bilirubin 0.37, AST 22.3, ALT 19.1, Alkaline Phosphatase 62.5, Total Protein 5.22 L, Albumin 3.01 L, Globulin 2.21, Albumin/Globulin Ratio 1.36 06/04/19 04:53: WBC 6.80, RBC 3.56 L, Hgb 11.1 L, Hct 33.1 L, MCV 93.0, MCH 31.2 H, MCHC 33.5, RDW Coeff of Zahraa 13.0, Plt Count 281, Neutrophils % (Manual) 55.0, Band Neutrophils % 6.0 H, Lymphocytes % (Manual) 14.0, Monocytes % (Manual) 10.0, Eosinophils % (Manual) 3.0, Basophils % (Manual) 1.0, Reactive Lymphocytes 11.0 H, Anisocytosis Not present ASSESSMENT: Please see below. 1. Renal Azotemia, improved 2. Dehydration, improved 3. Hypokalemia, resolved 4. Atrial fibrillation, controlled. PLAN: 1. Discharge the patient home 2. Dr. Ordonez to do 2D echo 3. Resume home medications 4. Potassium 10meq daily 5. Keflex 500mg BID for 5 days. Plan and coordination of the patient's care discussed in the presence of Media Technician and nurse. SCRIBED BY: THOR WALTON Process Coordinator scribed while in presence of service performed by Dr. Ordonez/Lisa Swift APRN on 06/04/19 ([id number])
--- NOTE | 2019-06-04 13:29 | CM.DICTOOL ---
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 MONITOR, 2014 ATRIAL FIBRILLATION LAST VITALS Temp Pulse Resp BP Pulse Ox 97.6 F 57 L 16 124/63 94 L 06/04/19 05:01 06/04/19 05:01 06/04/19 05:01 06/04/19 05:01 06/04/19 05:01 TAKE THESE MEDICATIONS AT HOME Apixaban (Eliquis) 5 mg PO BID [facility] Last Admin: 06/04/19 09:00 Dose: 5 mg Documented by: Atorvastatin Calcium (Lipitor) 40 mg PO BEDTIME [facility] Last Admin: 06/03/19 20:11 Dose: 40 mg Documented by: Cephalexin (Keflex) 500 mg PO Q12HR [facility] Stop: 06/07/19 08:59 Last Admin: 06/04/19 09:00 Dose: 500 mg Documented by: Clonidine (Catapres) 0.1 mg PO BID [facility] Last Admin: 06/04/19 09:00 Dose: 0.1 mg Documented by: Diltiazem HCl (Cardizem) 120 mg PO Q12HR [facility] Last Admin: 06/04/19 09:00 Dose: 120 mg Documented by: Losartan Potassium (Cozaar) 100 mg PO DAILY [facility] Last Admin: 06/04/19 09:00 Dose: 100 mg Documented by: Omeprazole (Prilosec) 20 mg PO BIDAC [facility] Last Admin: 06/04/19 05:57 Dose: 20 mg Documented by: Paroxetine HCl (Paxil) 30 mg PO BEDTIME [facility] Last Admin: 06/03/19 20:12 Dose: 30 mg Documented by: Potassium Chloride (K-Dur) 20 meq PO DAILYWM [facility] Last Admin: 06/04/19 09:00 Dose: 20 meq Documented by: OXYMETAZOLINE 1 SPRAY INTRANASAL DAILY PRN Last Admin: Oxybutynin Chloride 5 mg PO BID Last Admin: Clonazepam 0.5 mg PO DAILY Last Admin: Tramadol HCl (Ultram) 50 mg PO BID PRN PRN Reason: Pain ALLERGIES amlodipine besylate [From [facility]] Adverse Reaction (Mild, Verified 06/01/19 18:13) worsening HTN verapamil Adverse Reaction (Mild, Verified 06/01/19 18:13) worsening HTN DISCONTINUED MEDICATIONS NONE NEW PRESCRIPTIONS: K-TAB 10 MEQ DAILY KEFLEX 500 MG BID FOR 5 DAYS SMOKING: NOT APPLICABLE DISEASE SPECIFIC EDUCATION: DEHYDRATION DIZZINESS PRESCRIPTIONS APPOINTMENT LAB REVIEW: 06/04/19 04:53 06/04/19 04:53 06/04/19 04:53: Sodium 139.4, Potassium 3.67, Chloride 109.9 H, Carbon Dioxide 25.6, Anion Gap 7.57, BUN 12.4, Creatinine 0.68, Estimated GFR (MDRD) 85.00, BUN/Creatinine Ratio 18.23, Glucose 104.1, Calcium 8.21 L, Total Bilirubin 0.37, AST 22.3, ALT 19.1, Alkaline Phosphatase 62.5, Total Protein 5.22 L, Albumin 3.01 L, Globulin 2.21, Albumin/Globulin Ratio 1.36 06/04/19 04:53: WBC 6.80, RBC 3.56 L, Hgb 11.1 L, Hct 33.1 L, MCV 93.0, MCH 31.2 H, MCHC 33.5, RDW Coeff of Zahraa 13.0, Plt Count 281, Neutrophils % (Manual) 55.0, Band Neutrophils % 6.0 H, Lymphocytes % (Manual) 14.0, Monocytes % (Manual) 10.0, Eosinophils % (Manual) 3.0, Basophils % (Manual) 1.0, Reactive Lymphocytes 11.0 H, Anisocytosis Not present PLAN: DISCHARGE HOME DIET: REGULAR TOLERATED ACTIVITY: RESUME TOLERATED NO DRIVING IF DIZZY AN APPOINTMENT IS SCHEDULED WITH DR. ORDONEZ/MARLA ALMAGUER APRN ON May AT 2:15 PM CODE STATUS: FULL CODE CONTINUE MEDICATIONS LISTED ON NURSING DISCHARGE INFORMATION SHEET MRS. CONWAY IS ALERT AND ORIENTED X 4. SHE LIVES AT HOME WITH HER AND 2 SMALL GREAT GRANDCHILDREN. MRS. CONWAY REPORTS SHE AND HER ARE RAISING THE GREAT GRANDCHILDREN AT THIS TIME. MRS. CONWAY IS AGREEABLE TO DISCHARGE PLANS FOR TODAY. SHE IS INDEPENDENT WITH ACITIVITIES OF DAILY LIVING. MEAL INTAKES ARE GOOD AT 25-100%. SHE IS CONTINENT OF BLADDER AND BOWEL, BUT DID HAVE STOOL INCONTINENCE DURING THE NIGHT DUE TO DIARRHEA. SHE IS AMBULATORY TO THE BATHROOM AND IN THE ROOM WITHOUT STAFF ASSISTANCE. HYDRATION STATUS HAS IMPROVED, SKIN IS INTACT. MILD SWELLING AND BRUISING IS NOTED TO THE LEFT FOREARM DUE TO IV INFILTRATION. MD MARLA REED, OCCUPATIONAL HYGIENIST
--- NOTE | 2019-06-04 13:41 | HP ---
DATE OF SERVICE: 06/01/19 REASON FOR HOSPITALIZATION: Dizzy, dehydrated and fatigue duration 36 hours. HISTORY OF PRESENT ILLNESS: 69 year old white female came to the emergency room because of above complaints of mostly feeling dizzy, light headed especially with change in posture. Also had sweating with it and feeling of fatigue. The patient in the emergency room had temperature of 99.5 and marginally abnormal U/A raising the possibility of urinary tract infection. Dehydration was obvious on physical exam with creatinine of 1.5 and BUN 28. The previous creatinine and BUN were practically normal on this patient. PAST MEDICAL HISTORY: History of coronary artery disease Atrial fibrillation Hypertension Diabetes mellitus Dyslipidemia Hypertension REVIEW OF SYSTEMS: CONSTITUTIONAL: No night sweats. Fatigue and weakness. No fever or chills. HEENT: Eyes: No visual changes. No eye pain. No eye discharge. ENT: No runny nose. No epistaxis. No sinus pain. No sore throat. No odynophagia. No ear pain. No congestion. RESPIRATORY: No cough, no congestion. No hemoptysis. Shortness of breath on exertion. CARDIOVASCULAR: No angina symptoms. No CHF symptoms. No atypical chest pain for CAD. No palpitations. No PND. No orthopnea. GASTROINTESTINAL: No abdominal pain. No nausea or vomiting. No diarrhea or constipation. No hematemesis. No hematochezia. Appetite is not that good. GENITOURINARY: No urgency. No frequency. No dysuria. No hematuria. No obstructive symptoms. No discharge. No pain. No significant abnormal bleeding. MUSCULOSKELETAL: No musculoskeletal pain. No joint swelling. No arthritis. NEUROLOGICAL: No headache. No neck pain. No syncope. No seizures. Dizziness. PSYCHIATRIC: Not anxious. No depression. No suicidal thoughts. No homicidal thoughts. SKIN: No rash. No lesions. No wounds. ENDOCRINE: No unexplained weight loss. No weight gain. HEMATOLOGIC/LYMPHATIC: No anemia. No purpura. No petechiae. No prolonged or excessive bleeding. No palpable lymph nodes. PERSONAL/FAMILY/SOCIAL HISTORY: The patient is and lives with the . Nonsmoker, no alcohol abuse and does all activity of daily living. Very active. No history of fall. MEDICATIONS: Atorvastatin 40mg at bedtime Omeprazole 20mg daily Paxil 30mg QAM Tramadol 50mg BID Eliquis 5mg twice a day Losartan 100/25 daily Clonazepam 0.5mg at HS Clonidine 0.1mg twice a day Diltazem 120mg BID Vitamin D 2,000units daily Oxybutynin 5mg twice a day Oxymetazoline 1 spray intranasally daily ALLERGIES: Amlodipine Verapamil PHYSICAL EXAMINATION: GENERAL: The patient is oriented to time, place and person. VITAL SIGNS: Temperature 97.8, pulse 87, respiratory rate 16, blood pressure 108/68 and pulse ox 96%. HEENT: Head normocephalic, atraumatic. Eyes: Extraocular muscles are intact. Pupils are equal, round and reactive to light and accommodation. Ears: No lesions. Nose appeared normal. Throat: No exudate or erythema. NECK: Supple. No JVD, no carotid bruit. No lymphadenopathy or thyromegaly. LUNGS: Clear to auscultation. Percussion note normal. Chest symmetrical. HEART: S1, S2 irregular, no S3. No murmur. PMI not palpable on auscultation. No cyanosis or clubbing. No ascites. Pulses: Dorsalis pedis and posterior tibial pulses +2 symmetrical. ABDOMEN: Soft. Nontender. Bowel sounds active. No CVA tenderness. No mass felt. EXTREMITIES: No edema. Full range of motion of all extremities, equal. NEUROLOGIC: No focal deficit. Cranial nerves II through XII are grossly intact. No headache, no double vision or headache. SKIN: Dry. Intact. Turgor - normal. LYMPHATIC: No palpable lymph nodes/no lymphedema. MUSCULOSKELETAL: Normal joints with no swelling. Muscle tone is normal. LABS: Hgb 15, hct 45, wbc 9,900 normal differential. The patient's monocyte is 11%, creatinine 1.4, BUN 22, potassium 3.3, Liver profile normal. lactic acid 3.0 elevated, Influenza A and B molecular negative. U/A borderline with 1+ protein, Trace ketone, trace urine leukocyte esterase. ASSESSMENT: 1. Acute renal azotemia with dehydration with possibility of UTI with low grade fever. Flu syndrome can not be ruled out 2. Dizziness, lightheadedness could be vestibular dysfunction 3. Coronary artery disease rule out NE or ischemia 4. History of hypertension 5. Dyslipidemia 6. Diabetes Mellitus PLAN: 1. IV fluids, watch for fluid overload 2. Telemetry 3. Echocardiogram 4. IV antibiotics 5. Watch CBC and CMP and follow kidney functions 6. Discontinue antihypertensive medications including hydrochlorothiazide for now 7. Potassium supplements K-Dur 20meq TID daily CONDITION: Stable TIME SPENT: More than 70 minutes. MTDD
--- NOTE | 2019-06-07 08:39 | ECHO2D ---
Date of Exam: 06/04/19 Ordering Physician: DR. CRISTINA ORDONEZ Room #: 114 Reason for Echo: ATRIAL FIBRILLATION, SOB, CHF, CAD M-Mode Normal Adult Results LV Dimensions Normal Adult Results AoV Opening excursions >1.6 >1.6 LVEDD-base- 3.5-5.8 5.6 Ao root dimensions 2.0-3.7 3.5 LVESD-base- 3.1-4.6 L. Atrium dimensions 1.9-3.8 5.2 Post. Wall thickness 0.8-1.1 1.3 IV septum (thickness) 0.7-1.2 1.2 Post. Wall excursion 0.72-1.3 NORMAL Septal motion 0.6 Systolic motion R. Ventricular cavity 1.5-2.0 NORMAL LVEF 60% 50 - 55% Paradoxical septal wall motion NORMAL 2-D : 2-D M Mode Echocardiogram was performed using apical four chamber and left parasternal long and short axis views. Mitral, tricuspid and aortic valves appear to be normal. ABNORMAL SEPTAL MOTION BECAUSE OF BUNDLE BRANCH BLOCK. BORDERLINE LEFT VENTRICLE CAVITY. ENLARGED LEFT ATRIAL CAVITY SIZE. Aortic root appears to be normal. There is no pericardial effusion. There is no thrombus noted in the left ventricle or left atrial cavity. No mitral valve prolapse noted. M-MODE: MV: NORMAL AV: NORMAL TV: NORMAL PV: CHAMBER SIZE: ENLARGED LEFT ATRIAL CAVITY/ BORDERLINE LEFT VENTRICLE CAVITY WALL MOTION: ABNORMAL SEPTAL MOTION PERICARDIUM: NORMAL INTERPRETATION: 1. BORDERLINE LEFT VENTRICLE HYPERTROPHY 2. ENLARGED LEFT ATRIAL CAVITY 5.2 CM 3. ABNORMAL SEPTAL MOTION WITH BUNDLE BRANCH BLOCK WITH EJECTION FRACTION 50 TO 55% 4. NORMAL VALVES 5. MILD MITRAL REGURGITATION MTDD
--- NOTE | 2019-06-07 11:07 | PN ---
06/01/19: Level 5 06/02/19: Intermediate 06/03/19: Intermediate 06/04/19: D as in discharge MTDD
--- NOTE | 2019-06-07 11:07 | PN ---
DATE OF SERVICE: 06/04/19 SUBJECTIVE: The patient was seen and examined with the Nurse Practitioner. The patient's condition is stable. Her kidney function are back to normal. Hydration status has improved. She is afebrile and feeling a lot better. No PND. No orthopnea and No palpitations. REVIEW OF SYSTEMS: CONSTITUTIONAL: No night sweats. No fatigue, malaise, lethargy. No fever or chills. HEENT: Eyes: No visual changes. No eye pain. No eye discharge. ENT: No runny nose. No epistaxis. No sinus pain. No sore throat. No odynophagia. No congestion. RESPIRATORY: No cough, no congestion. No hemoptysis. No shortness of breath. CARDIOVASCULAR: No angina symptoms. No CHF symptoms. No atypical chest pain for CAD. No palpitations. No PND. No orthopnea. GASTROINTESTINAL: No abdominal pain. No nausea or vomiting. No diarrhea or constipation. No hematemesis. No hematochezia. GENITOURINARY: No urgency. No frequency. No dysuria. No hematuria. No obstructive symptoms. No discharge. No pain. No significant abnormal bleeding. MUSCULOSKELETAL: No musculoskeletal pain; no joint swelling. NEUROLOGICAL: No headache. No neck pain. No syncope. No seizures. No dizziness. PSYCHIATRIC: Not anxious. No depression. No suicidal thoughts. No homicidal thoughts. SKIN: No rash. No lesions. No wounds. ENDOCRINE: No unexplained weight loss. No weight gain. HEMATOLOGIC/LYMPHATIC: No anemia. No purpura. No petechiae. No prolonged or excessive bleeding. No palpable lymph nodes. PHYSICAL EXAMINATION: HEENT: Head normocephalic, atraumatic. Eyes: Extraocular muscles are intact. Pupils are equal, round and reactive to light and accommodation. Ears: No lesions. Nose appeared normal. Throat: No exudate or erythema. NECK: Supple. No JVD, no carotid bruit. No lymphadenopathy or thyromegaly. LUNGS: Decreased breath sounds but. clear to auscultation. Percussion note normal. Chest symmetrical. HEART: S1, S2, no S3. No murmurs. No cyanosis or clubbing. No ascites. Pulses: Dorsalis pedis and posterior tibial pulses +1 to +2 bilaterally. ABDOMEN: Soft. Nontender. Bowel sounds active. No CVA tenderness. No mass felt. EXTREMITIES: No edema. Full range of motion of all extremities, equal. NEUROLOGIC: No focal deficit. Cranial nerves II through XII are grossly intact. No headache, no double vision or headache. SKIN: Not dry. Intact. Turgor - normal. LYMPHATIC: No palpable lymph nodes/no lymphedema. MUSCULOSKELETAL: Normal joints with no swelling. Muscle tone is normal. LABS: Echo showed enlargement of the LA cavity otherwise mildly hypokinetic septal wall but practically normal ejection fraction. Valvular structures are normal with mild mitral regurgitation. TIME SPENT: More than 30 minutes. Plan and coordination of the patient's care discussed in the presence of nurse. EVELIN
--- NOTE | 2019-06-08 12:44 | PN ---
DATE OF SERVICE: 06/03/19 SUBJECTIVE: The patient was seen and examined today. The patient's condition is stable. She is feeling better. She is up and about. PHYSICAL EXAMINATION: HEENT: Head normocephalic, atraumatic. Eyes: Extraocular muscles are intact. Pupils are equal, round and reactive to light and accommodation. Ears: No lesions. Nose appeared normal. Throat: No exudate or erythema. NECK: Supple. No JVD, no carotid bruit. No lymphadenopathy or thyromegaly. LUNGS: Decreased breath sounds. Clear to auscultation. Percussion note normal. Chest symmetrical. HEART: S1, S2, no S3. No murmurs. No cyanosis or clubbing. No ascites. Pulses: Dorsalis pedis and posterior tibial pulses +1 to +2 bilaterally. ABDOMEN: Soft. Nontender. Bowel sounds active. No CVA tenderness. No mass felt. EXTREMITIES: No edema. Full range of motion of all extremities, equal. NEUROLOGIC: No focal deficit. Cranial nerves II through XII are grossly intact. No headache, no double vision or headache. SKIN: Not dry. Intact. Turgor - normal. LYMPHATIC: No palpable lymph nodes/no lymphedema. MUSCULOSKELETAL: Normal joints with no swelling. Muscle tone is normal. PLAN: 1. Hydration status has improved. 2. Kidney functions are better. 3. We will do echo tomorrow and discharge the patient home. TIME SPENT: More than 30 minutes. Plan and coordination of the patient's care discussed in the presence of nurse. EVELIN
--- NOTE | 2019-06-10 14:36 | DS ---
DATE OF SERVICE: 06/04/19 FINAL DIAGNOSIS: 1. ACUTE RENAL INSUFFICIENCY 2. DEHYDRATION 3. DIZZINESS 4. HYPOKALEMIA, RESOLVED 5. ATRIAL FIBRILLATION (ELIQUIS) 6. HYPERTENSION 7. CHF 8. DYSLIPIDEMIA 9. GERD 10. DEPRESSION/ANXIETY 11. CAD S/P STENT APPLICATION 12. 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 DILATED CARDIOMYOPATHY 15. LEFT BUNDLE BRANCH BLOCK 16. HEADACHES 17. DIVERTICULOSIS 18. BREAST CANCER, S/P LEFT MASTECTOMY (2006) 19. HYSTERECTOMY, 1974 20. CATARACT EXTRACTIONS 21. TONSILLECTOMY LAST VITALS Temp Pulse Resp BP Pulse Ox 97.6 F 57 L 16 124/63 94 L 06/04/19 05:01 06/04/19 05:01 06/04/19 05:01 06/04/19 05:01 06/04/19 05:01 DISCHARGE INSTRUCTIONS: AN APPOINTMENT IS SCHEDULED WITH DR. ORDONEZ/MARLA ALMAGUER APRN ON May AT 2:15 PM MEDICATIONS AT DISCHARGE: Apixaban (Eliquis) 5 mg PO BID [facility] Last Admin: 06/04/19 09:00 Dose: 5 mg Documented by: Atorvastatin Calcium (Lipitor) 40 mg PO BEDTIME [facility] Last Admin: 06/03/19 20:11 Dose: 40 mg Documented by: Cephalexin (Keflex) 500 mg PO Q12HR [facility] Stop: 06/07/19 08:59 Last Admin: 06/04/19 09:00 Dose: 500 mg Documented by: Clonidine (Catapres) 0.1 mg PO BID [facility] Last Admin: 06/04/19 09:00 Dose: 0.1 mg Documented by: Diltiazem HCl (Cardizem) 120 mg PO Q12HR [facility] Last Admin: 06/04/19 09:00 Dose: 120 mg Documented by: Losartan Potassium (Cozaar) 100 mg PO DAILY [facility] Last Admin: 06/04/19 09:00 Dose: 100 mg Documented by: Omeprazole (Prilosec) 20 mg PO BIDAC [facility] Last Admin: 06/04/19 05:57 Dose: 20 mg Documented by: Paroxetine HCl (Paxil) 30 mg PO BEDTIME [facility] Last Admin: 06/03/19 20:12 Dose: 30 mg Documented by: Potassium Chloride (K-Dur) 20 meq PO DAILYWM [facility] Last Admin: 06/04/19 09:00 Dose: 20 meq Documented by: OXYMETAZOLINE 1 SPRAY INTRANASAL DAILY PRN Last Admin: Oxybutynin Chloride 5 mg PO BID Last Admin: Clonazepam 0.5 mg PO DAILY Last Admin: Tramadol HCl (Ultram) 50 mg PO BID PRN PRN Reason: Pain NEW PRESCRIPTIONS: K-TAB 10 MEQ DAILY KEFLEX 500 MG BID FOR 5 DAYS DISCONTINUED MEDICATIONS: NONE DIET INSTRUCTIONS: REGULAR TOLERATED ACTIVITY: RESUME TOLERATED NO DRIVING IF DIZZY SMOKING: NOT APPLICABLE DISEASE SPECIFIC EDUCATION: DEHYDRATION DIZZINESS PRESCRIPTIONS APPOINTMENT HOSPITAL COURSE: The patient was hospitalized with dizziness, light-headedness, more like postural hypotension. The patient had dehydration and renal azotemia. The patient was given IV fluids. She was also started on IV antibiotics because of possibility of UTI. The patient's condition improved. Her hydration status improved. Her dizziness resolved. The patient's cardiovascular status was stable. She has history of coronary artery disease and atrial fibrillation more or less well-controlled. One time her heart rate went up to 130, possibility of anxiety. She was given IV Lanoxin just one dose. The patient's echo at the time of discharge showed mildly hypokinetic septal wall but LV ejection fraction is almost 50 to 55%. The patient's left atrial cavity is enlarged. The patient was again given an option for having cardioversion done or ablation evaluation. She declined any further referral. At the present time she wants to be on the same medication as she was on. She is discharged on antibiotics and steroids. The patient is under a lot of stress. She is raising the grandkids 2 and 4-year-old. CONDITION AT TIME OF DISCHARGE: Stable. TIME SPENT: More than 60 minutes. [facility]
--- NOTE | 2019-06-10 14:38 | PN ---
BILLIN06/01/19 ADMISSION DAY LEVEL 5 06/02/19 INTERMEDIATE 06/03/19 INTERMEDIATE 06/04/19 DISCHARGE MTDD
== END 2019-06-04 14:45 | disposition home or self-care (01) ==
LOC: ED 18:04 → MEDSURG B 18:04 → OBSVTOIN 20:44 → MEDSURG B 21:47
PROVIDERS: ADMIT Internal Medicine; ATTEND Internal Medicine

== ENCOUNTER 2019-12-02 18:11 | Inpatient (IN) ==
[2019-12-02 23:01] VITALS: BMI 29.8
[2019-12-05 05:38] VITALS: BP 128/62; TEMP 98.7
== END 2019-12-05 13:35 | disposition home or self-care (01) | DRG 194 ==
LOC: ED 18:11 → SCU 22:20
PROVIDERS: ADMIT Internal Medicine; ATTEND Internal Medicine
DX: F41.1 Generalized anxiety disorder; F32.9 Major depressive disorder, single episode, unspecified; R05 Cough; Z51.81 Encounter for therapeutic drug level monitoring; E11.9 Type 2 diabetes mellitus without complications; I48.91 Unspecified atrial fibrillation; Z03.818 Encounter for observation for suspected exposure to other biological agents ruled out; Z79.01 Long term (current) use of anticoagulants; E78.5 Hyperlipidemia, unspecified; E87.6 Hypokalemia; D64.9 Anemia, unspecified; I42.0 Dilated cardiomyopathy; J44.0 Chronic obstructive pulmonary disease with (acute) lower respiratory infection; J18.9 Pneumonia, unspecified organism; K21.9 Gastro-esophageal reflux disease without esophagitis; Z79.899 Other long term (current) drug therapy; I10 Essential (primary) hypertension; Z85.3 Personal history of malignant neoplasm of breast; Z90.12 Acquired absence of left breast and nipple; R07.9 Chest pain, unspecified; E66.9 Obesity, unspecified; I44.7 Left bundle-branch block, unspecified; M15.0 Primary generalized (osteo)arthritis

== ENCOUNTER 2020-04-20 09:58 | Inpatient (IN) ==
--- NOTE | 2020-04-20 10:28 | ED.PDOC ---
General ED Provider: Dr. EMILY GARCIA Chief Complaint: Shortness of Air Stated Complaint: Shortness of breath, fatigue and weakness. Sent here from Dr Bajwa's office Time Seen by Physician: 10:20 Mode of Arrival: Walk-In Information Source: Patient Exam Limitations: No limitations Primary Care Provider: CRISTINA BAJWA Nursing and Triage Documentation Reviewed and Agree: Yes Does patient meet sepsis criteria?: No System Inflammatory Response Syndrome: Not Applicable Sepsis Protocol: For patient's 13 years and over: Temp is 96.8 and below OR 101 and greater Pulse >90 BPM Resp >20/minute Acutely Altered Mental Status Are patient's symptoms suggestive of a new infection, such as: -Pneumonia -Skin, Soft Tissue -Endocarditis -UTI -Bone, Joint Infection -Implantable Device -Acute Abdominal Infection -Wound Infection -Meningitis -Blood Stream Catheter Infection -Unknown Cardiovascular Complaint Exam Palpitations Complaint/Exam Onset/Duration: 2-3 days with associated SOB-exertional /rapid heart rate Symptoms Are: Still present Timing: Intermittent Initial Severity: Mild Current Severity: Moderate Character: Reports Fast (100-120), Irregular and Pounding Aggravating: Reports Exertion Alleviating: Reports Rest Associated Signs and Symptoms: Reports Dizziness, Shortness of breath and Nausea; Denies Diaphoresis Related History: Similar episode Related Surgical History: Reports Cardiac Cath Cardiac Risk Factors: Reports Hypertension and CHF Pulmonary Embolism Risk Factors: Reports None Atrial Fibrillation Risk Factors: Reports Hypertension and COPD Thyroid Exam: Normal Differential Diagnoses: Cardiomyopathy, Mitral Valve Prolapse, CHF, COPD, Hypokalemia, Panic Disorder and Paroxysmal SVT Review of Systems Review Of Systems Constitutional: Reports Weakness and Loss of appetite Eyes: Reports No symptoms Ears, Nose, Mouth, Throat: Reports No symptoms Respiratory: Reports Cough and Short of air Cardiac: Reports Irregular heart rate, Lightheadedness and Palpitations GI: Reports No symptoms : Reports No symptoms Musculoskeletal: Reports No symptoms Skin: Reports No symptoms Neurological: Reports No symptoms Endocrine: Reports No symptoms Hematologic/Lymphatic: Reports No symptoms All Other Systems: Reviewed and Negative [facility] Medical History (Updated 04/20/20 @ 12:18 by EMILY GARCIA DO) Arthritis Atrial fibrillation Diabetes GERD (gastroesophageal reflux disease) Hyperlipemia Hypertension Family History FATHER Hypertension Myocardial infarct Diabetes FATHER Coronary artery arteriosclerosis Mother Alzheimer disease Social History Smoking and tobacco status: Never smoker Alcohol intake: current Alcohol intake frequency: holidays/special occasions only Counseling given: No Substance use type: does not use Counseling given: No Household members: spouse Housing: house Marital status: Lives independently: Yes Number of children: 2 Financial difficulty paying for basics: not very hard Current occupational status: employed and retired Previous occupational history: Social Work Pets and animals: Yes History of recent travel: No Do you think of yourself as: straight/heterosexual Current gender identity: female Current diet type/program: regular Well-balanced diet: rarely Water heater temperature set < 120 degrees: Yes Working smoke detector in home: Yes Fire extinguisher in home: Yes Carbon monoxide detector in home: Yes Firearms in home: No What type of physical activity do you participate in?: none Surgical History (Updated 12/03/19 @ 08:13 by THOR WALTON) H/O total mastectomy of left breast History of partial hysterectomy Female Reproductive History Menstrual Hx Hysterectomy: No Hx Tubal Ligation: No Physical Exam Physical Exam Appearance: Reports Ill-appearing Interpretation Radiology Interpretation Radiology Interpretation By: Radiologist Exam Interpreted: CXR Xray Comments: Small pleural effusions. EKG Interpretation Time of EKG #1: 10:31 Rate: Normal Rhythm: Other (atrial fib) [place]: Left Interpretation: non specific ST-T wave changes Re-Evaluation Re-Evaluation Time of Re-Evaluation: 12:50 Status: Improved Vital Signs Stable: Yes Pain Level: none Appearance: NAD Lungs: Clear Skin: Warm and Dry Neuro: Alert and Oriented X3 CV: RRR Additional Comments: Feeling much better, States her meds have had time to start working. Feels less dyspneic on Oxygen Physician Notification Case Discussed Physician Notified: Dr Bajwa-discussed case-admit patient Time of Notification: 12:05 Critical Care Note Critical Care Note Total Critical Care Time (mins): 30 Course Course Hematology/Chemistry: 04/20/20 10:49 04/20/20 10:49 Orders, Labs, Meds: Lab Review 04/20/20 04/20/20 04/20/20 10:30 10:49 10:49 WBC 8.65 RBC 4.41 Hgb 13.6 Hct 40.8 MCV 92.5 MCH 30.8 MCHC 33.3 RDW Coeff of Zahraa 14.5 Plt Count 338 Immature Gran % (Auto) 0.2 Neut % (Auto) 74.1 Lymph % (Auto) 18.0 [place] % (Auto) 6.9 Eos % (Auto) 0.6 Baso % (Auto) 0.2 Neut # (Auto) 6.4 Lymph # (Auto) 1.6 [place] # (Auto) 0.6 Eos # (Auto) 0.1 Baso # (Auto) 0.0 Immature Gran # (Auto) 0.0 ESR PT INR APTT Puncture Site R rad O2 Saturation 95.5 ABG pH 7.50 H ABG pCO2 33.0 L ABG pO2 71.0 L ABG HCO3 25.7 ABG Total CO2 26.7 ABG Base Excess 2.5 H Tee Test + FiO2 % 21.0 Sodium 136.5 Potassium 3.01 L Chloride 102.7 Carbon Dioxide 24.7 Anion Gap 12.11 BUN 8.3 Creatinine 0.73 Estimated GFR (MDRD) 79.00 BUN/Creatinine Ratio 11.36 Glucose 126.5 H Calcium 9.49 Magnesium 1.81 Total Bilirubin 1.07 AST 25.2 ALT 33.2 Alkaline Phosphatase 90.5 Total Creatine Kinase 23.7 L POC Venous Troponin I Troponin I Pending Total Protein 6.16 L Albumin 3.86 Globulin 2.30 Albumin/Globulin Ratio 1.67 Procalcitonin Urine Color Urine Clarity Urine pH Ur Specific [place] Urine Protein Urine Glucose (UA) Urine Ketones Urine Blood Urine Nitrite Urine Bilirubin Urine Urobilinogen Ur Leukocyte Esterase Urine Microscopic RBC Urine Microscopic WBC Ur Squamous Epith Cells Urine Bacteria 04/20/20 04/20/20 04/20/20 10:49 10:49 10:49 WBC RBC Hgb Hct MCV MCH MCHC RDW Coeff of Zahraa Plt Count Immature Gran % (Auto) Neut % (Auto) Lymph % (Auto) [place] % (Auto) Eos % (Auto) Baso % (Auto) Neut # (Auto) Lymph # (Auto) [place] # (Auto) Eos # (Auto) Baso # (Auto) Immature Gran # (Auto) ESR 6 PT 14.1 H INR 1.47 APTT 30.2 Puncture Site O2 Saturation ABG pH ABG pCO2 ABG pO2 ABG HCO3 ABG Total CO2 ABG Base Excess Tee Test FiO2 % Sodium Potassium Chloride Carbon Dioxide Anion Gap BUN Creatinine Estimated GFR (MDRD) BUN/Creatinine Ratio Glucose Calcium Magnesium Total Bilirubin AST ALT Alkaline Phosphatase Total Creatine Kinase POC Venous Troponin I Troponin I Total Protein Albumin Globulin Albumin/Globulin Ratio Procalcitonin < 0.05 Urine Color Urine Clarity Urine pH Ur Specific [place] Urine Protein Urine Glucose (UA) Urine Ketones Urine Blood Urine Nitrite Urine Bilirubin Urine Urobilinogen Ur Leukocyte Esterase Urine Microscopic RBC Urine Microscopic WBC Ur Squamous Epith Cells Urine Bacteria 04/20/20 04/20/20 10:49 11:00 WBC RBC Hgb Hct MCV MCH MCHC RDW Coeff of Zahraa Plt Count Immature Gran % (Auto) Neut % (Auto) Lymph % (Auto) [place] % (Auto) Eos % (Auto) Baso % (Auto) Neut # (Auto) Lymph # (Auto) [place] # (Auto) Eos # (Auto) Baso # (Auto) Immature Gran # (Auto) ESR PT INR APTT Puncture Site O2 Saturation ABG pH ABG pCO2 ABG pO2 ABG HCO3 ABG Total CO2 ABG Base Excess Tee Test FiO2 % Sodium Potassium Chloride Carbon Dioxide Anion Gap BUN Creatinine Estimated GFR (MDRD) BUN/Creatinine Ratio Glucose Calcium Magnesium Total Bilirubin AST ALT Alkaline Phosphatase Total Creatine Kinase POC Venous Troponin I < 0.01 Troponin I Total Protein Albumin Globulin Albumin/Globulin Ratio Procalcitonin Urine Color Yellow Urine Clarity Cloudy Urine pH 7.0 Ur Specific [place] 1.020 Urine Protein 1+ H Urine Glucose (UA) Negative Urine Ketones Negative Urine Blood 2+ H Urine Nitrite Negative Urine Bilirubin Negative Urine Urobilinogen 1.0 H Ur Leukocyte Esterase 2+ H Urine Microscopic RBC 2-5 Urine Microscopic WBC 50-100 Ur Squamous Epith Cells 0-2 Urine Bacteria 4+ Orders Category Date Time Status ABG DRAW REQUEST Stat CARDIO 04/20/20 10:28 Completed EKG-(ED ONLY) Stat CARDIO 04/20/20 10:28 Completed IV [ED IV/MEDIPORT/POWERPORT] .ONCE EMERGENCY 04/20/20 10:29 Active ABG Stat LAB 04/20/20 10:30 Completed CBC W/ AUTO DIFF Stat LAB 04/20/20 10:49 Completed CMP [COMPREHENSIVE METABOLIC PANEL] Stat LAB 04/20/20 10:49 Results CPK [CREATINE KINASE] Stat LAB 04/20/20 10:49 Results ESR Stat LAB 04/20/20 10:49 Completed MAGNESIUM Stat LAB 04/20/20 10:49 Results NT-PROBNP Stat LAB 04/20/20 10:49 Received PARTIAL THROMBOPLASTIN TIME Stat LAB 04/20/20 10:49 Completed PROCALCITONIN Stat LAB 04/20/20 10:49 Completed PT WITH INR Stat LAB 04/20/20 10:49 Completed TROPONIN I Stat LAB 04/20/20 10:49 Results UA [URINALYSIS C & S IF INDICATED] Stat LAB 04/20/20 11:00 Completed URINE CULTURE Stat LAB 04/20/20 11:00 Received 0.9 % Sodium Chloride [Saline Flush] MEDS 04/20/20 10:28 Active 1 syr IVF PRN PRN Potassium Chloride [K-Dur] MEDS 04/20/20 12:30 Ordered 20 meq PO BIDWM CHEST, 2 VIEWS PA & LAT Stat RADS 04/20/20 10:36 Completed Medications Generic Name Dose Route Start Last Admin Trade Name Freq PRN Reason Stop Dose Admin Potassium Chloride 20 meq 04/20/20 12:30 Potassium Chloride 20 Meq Tab PO BIDWM [place] Sodium Chloride 1 syr 04/20/20 10:28 0.9% Sodium Chloride 10 Ml Disp.Syrin IVF PRN PRN To flush IV Vital Signs: Temp Pulse Resp BP Pulse Ox 04/20/20 09:58 98 F 115 H 20 156/93 H 97 OLIVIA Risk Score OLIVIA Risk Score: Risk Score Odds of by 30D 0 0.1 (0.1-0.2) 1 0.3 (0.2-0.3) 2 0.4 (0.3-0.5) 3 0.7 (0.6-0.9) 4 1.2 (1.0-1.5) 5 2.2 (1.9-2.6) 6 3.0 (2.5-3.6) 7 4.8 (3.8-6.1) Discharge Plan Discharge Patient Disposition: ADMITTED INPATIENT Discharge Problem: Atrial fibrillation with tachycardic ventricular rate, Hypokalemia, Dyspnea ED Provider: EMILY GARCIA Condition: Stable Physician Progress Note: [] Discussed case with patient and spouse. Recommend admission for additional evaluation and definitive therapay
[2020-04-20 10:41] LABS: ABG BASE EXCESS 2.5 (-2.0-2.0); ABG HCO3 25.7 (22.0-26.0); ABG OXYGEN SATURATION 95.5 % (95-100); ABG TCO2 26.7 (22.0-28.0)
[2020-04-20 10:58] LABS: BASOPHILS % (AUTO) 0.2 % (0.0-3.0); EOSINOPHILS # (AUTO) 0.1 K/ul (0.0-0.7); EOSINOPHILS % (AUTO) 0.6 % (0.0-7.0); HEMATOCRIT 40.8 % (37.0-47.0); HEMOGLOBIN 13.6 g/dl (12.0-16.0); IMMATURE GRANULOCYTE % (AUTO) 0.2 % (0.0-5.0); LYMPHOCYTES # (AUTO) 1.6 K/uL (0.60-3.4); MEAN CORPUSCULAR HEMOGLOBIN 30.8 pg (27.0-31.0); MEAN CORPUSCULAR HGB CONC 33.3 (31.8-35.4); MEAN CORPUSCULAR VOLUME 92.5 fl (81.0-99.0); MONOCYTES # (AUTO) 0.6 K/uL (0.4-2.0); MONOCYTES % (AUTO) 6.9 (0-10); NEUTROPHILS # (AUTO) 6.4 K/ul (2.0-6.9); NEUTROPHILS % (AUTO) 74.1 % (42.2-75.2); PLATELET COUNT 338 10^3/uL (140-440); RDW COEFFICIENT OF VARIATION 14.5 % (11.6-14.8); RED BLOOD COUNT 4.41 10^6/ul (4.20-5.40); WHITE BLOOD COUNT 8.65 K/ul (4.6-10.2)
--- NOTE | 2020-04-20 11:06 | DI ---
EXAM: Chest two view, frontal and lateral views. HISTORY: Dyspnea. Palpitations. COMPARISON: 12/02/2019. FINDINGS: Left mastectomy changes noted. Cardiac silhouette is enlarged. There is no vascular garrett estion. There is minimal blunting of both costophrenic angles. Lungs otherwise clear. There is no pneumothorax. No acute osseous abnormality is seen. IMPRESSION: Small pleural effusions.
[2020-04-20 11:12] LABS: PARTIAL THROMBOPLASTIN TIME 30.2 SEC (23.9-40.0); PROTHROMBIN TIME 14.1 SEC (9.3-11.0)
[2020-04-20 11:21] LABS: BILIRUBIN,URINE Negative (NEGATIVE); CLARITY,URINE Cloudy (CLEAR); COLOR,URINE Yellow (YELLOW); GLUCOSE, URINE (UA) Negative (NEGATIVE); KETONES,URINE Negative (NEGATIVE); LEUKOCYTE ESTERASE ,URINE 2+ (NEGATIVE); NITRITE,URINE Negative (NEGATIVE); PROTEIN,URINE 1+ (NEGATIVE); URINE, BLOOD 2+ (NEGATIVE)
[2020-04-20 11:28] LABS: URINE WBC, MICROSCOPIC 50-100 (0-2)
[2020-04-20 11:29] LABS: BACTERIA,URINE 4+ (NOT PRESENT); SQUAMOUS EPITHELIAL CELL,UR 0-2 (0-5)
[2020-04-20 11:35] LABS: ALANINE AMINOTRANSFERASE 33.2 U/L (0-35); ALBUMIN 3.86 g/dL (3.5-5.0); ALKALINE PHOSPHATASE 90.5 U/L (53-141); ASPARTATE AMINO TRANSFERASE 25.2 U/L (14-36); BILIRUBIN,TOTAL 1.07 mg/dL (0.2-1.3); BLOOD UREA NITROGEN 8.3 mg/dL (7-17); CALCIUM 9.49 mg/dL (8.4-10.2); CARBON DIOXIDE 24.7 mmol/L (22-30.0); CHLORIDE 102.7 mmol/L (98-107); CREATINE KINASE 23.7 U/L (30-135); CREATININE 0.73 mg/dL (0.60-1.30); GLUCOSE 126.5 mg/dL (74-106); MAGNESIUM 1.81 mg/dL (1.6-2.3); POTASSIUM 3.01 mmol/L (3.5-5.1); SODIUM 136.5 mmol/L (134.5-145); TOTAL PROTEIN 6.16 g/dL (6.3-8.2)
[2020-04-20 11:39] LABS: ERYTHROCYTE SEDIMENTATION RATE 6 mm/hr (0-20)
[2020-04-20] MEDS: K-DUR PO SCH ×2 (12:52→16:28)
[2020-04-20 13:39] VITALS: BMI 27.4
[2020-04-20] MEDS ORDERED: VENTOLIN HFA (PER PUFF-WITH SPACER) IH PRN (14:02)
[2020-04-20] MEDS ORDERED: DECADRON 4 MG/ML SDV IM ONE (15:44)
[2020-04-20] MEDS: ROCEPHIN 1 GM/50 ML D5W 1 GM/50 ML BAG IV SCH (16:28)
[2020-04-20] MEDS: PRILOSEC PO SCH (16:28)
[2020-04-20] MEDS: DEXTROSE 5%-1/2NS IV SOLUTION 1,000 ML IV SCH (16:29)
[2020-04-20] MEDS: KLONOPIN PO SCH (20:09)
[2020-04-20] MEDS: LIPITOR PO SCH (20:09)
[2020-04-20] MEDS: ULTRAM PO SCH (20:10)
[2020-04-20] MEDS: DITROPAN PO SCH (20:10)
[2020-04-20] MEDS: PAXIL PO SCH (20:10)
[2020-04-20] MEDS: ELIQUIS PO SCH (20:11)
[2020-04-20] MEDS ORDERED: CATAPRES PO SCH (21:00)
[2020-04-20] MEDS ORDERED: CARDIZEM PO SCH (21:00)
[2020-04-21 04:40] LABS: TROPONIN I < 0.012 ng/ml (0.0000-0.120)
[2020-04-21] MEDS: PRILOSEC PO SCH ×2 (05:40→17:43)
--- NOTE | 2020-04-21 08:31 | HP ---
DATE OF SERVICE: 04/18/20 REASON FOR HOSPITALIZATION/HISTORY OF PRESENT ILLNESS: 69-year-old female who walked in with three to four days of weakness, shortness of breath and fatigue. PAST MEDICAL HISTORY: Chronic anemia Hypertension Chronic lung disease CAD Diabetes mellitus type 2 (A1C 6.2 02/2020) Dilated cardiomyopathy History of left bundle branch block Cancer, left breast with left mastectomy 2006 DJD Depression Heart cath 2014 PAST SURGICAL HISTORY: Left breast mastectomy, 2006 History of partial hysterectomy REVIEW OF SYSTEMS: CONSTITUTIONAL: No fever. Positive for fatigue. HEENT: No sinus drainage, no sore throat. RESPIRATORY: No cough, no congestion. CARDIOVASCULAR: Positive for shortness of breath. No atypical chest pain for coronary artery disease. No angina, CHF symptoms, or palpitations. GASTROINTESTINAL: No melena or abdominal pain. No GERD. GENITOURINARY: No hematuria, no polyuria. FIG WASHER: Dizziness. No blackout, no headache, no double vision. Gait: helping. MUSCULOSKELETAL: Positive for osteoarthritis pain, no joint swelling. ENDOCRINE: No weight loss, no weight gain. SKIN: Not dry, no rash. PSYCHIATRIC: Anxious. No depression, no suicidal thoughts, no homicidal thoughts. SOCIAL HISTORY: Nonsmoker. , lives with . No alcohol use. She has a lot of stress, alot medical problems. She does all activities of daily living, drives car. MEDICATIONS: Klonopin 0.5 mg p.o. b.i.d. Paxil 30 mg p.o. daily Eliquis 5 mg b.i.d. Diltiazem 60 mg b.i.d. Losartan-HCTZ 100-25 mg daily Clonidine 0.2 mg b.i.d. Atorvastatin 40 mg daily Tramadol 50 mg twice a day for pain Omeprazole 20 mg twice a day Oxybutynin 5 mg twice a day Proventil HFA two puffs p.r.n. ALLERGIES: AMLODIPINE BESYLATE, VERAPAMIL PHYSICAL EXAMINATION: V/S: Height 5'3", pulse 110, BP 128/82, temperature 98.8, 02 sat 96%. GENERAL APPEARANCE: Oriented times three. Dry skin. Pallor. HEENT: Normal. NECK: No JVP, no bruits. RESPIRATORY: Lungs are clear. CARDIOVASCULAR: Rate 110/min, irregular. S1, S2, no S3, no murmur. No cyanosis, clubbing. No ascites. GI/ABDOMEN: No tenderness. Bowel sounds are active. EXTREMITIES: No edema, pulses +1, equal. FIG WASHER: Deep tendon reflexes, sensory, motor and gait all normal. RECTAL/PELVIC: Colonoscopy screening Dr. Chavez 10/07. Pelvic: Partial hysterectomy. Mammogram 03/11 [facility]. Bone density 03/17/19. ASSESSMENT: 1. Weakness/shortness of breath/fatigue. 2. Atrial fibrillation with rapid ventricular response on Eliquis. 3. History of CHF. 4. Diabetes mellitus type 2. 5. Dilated cardiomyopathy, echo ejection fraction 40 to 45%. 6. CAD with LAD 50% 2014, Dr. Brand. 7. Dyslipidemia. 8. Depression. 9. Left breast cancer with mastectomy 2006. 10. History of pneumonia. 11. COPD/asthma. PLAN: 1. Admitted through ER. 2. Telemetry. 3. Covid-19 swab. 4. Continue all medications. 5. UA repeated, abnormal. 6. Culture and sensitivity. 7. Rocephin 1 gm IV q.a.m. 8. Oxygen 2 to 3L/cannula/min. 9. 1000 cc's D5 1/2 NS 24 hourly. ADDENDUM: ABG showed p02 of 71, pC02 33, pH 7.50 with 95% saturation on room air. Hemoglobin 13, hematocrit 40, WBC 8,600 with normal differential. Chest x-ray small pleural effusion, no vascular congestion. Lungs are clear. CMP showed creatinine 0.7, BUN 8, blood sugar 126, liver profile normal. CK normal. Pro- Calcitonin normal. Troponin normal. ESR 6 normal. Leukocyte esterase 2+, 4+ bacteria, 2+ blood. The patient has already been started on Rocephin 1 gm now and 24 hourly, IV fluids 24 hourly 1000 cc, 1 cc Decadron IM given. The patient's condition is stable. TIME SPENT: More than 70 minutes. MTDD
[2020-04-21] MEDS: ROCEPHIN 1 GM/50 ML D5W 1 GM/50 ML BAG IV SCH (08:42)
[2020-04-21] MEDS: CARDIZEM PO SCH ×3 (08:42→20:37)
[2020-04-21] MEDS: HYZAAR 50-12.5 MG TAB PO SCH (08:42)
[2020-04-21] MEDS: K-DUR PO SCH ×2 (08:43→17:43)
[2020-04-21] MEDS: DITROPAN PO SCH ×2 (08:43→20:37)
[2020-04-21] MEDS: ULTRAM PO SCH ×2 (08:43→20:37)
[2020-04-21] MEDS: ELIQUIS PO SCH ×2 (08:43→20:37)
[2020-04-21] MEDS: KLONOPIN PO SCH ×2 (08:43→20:36)
[2020-04-21] MEDS ORDERED: HYZAAR 50-12.5 MG TAB PO SCH (09:00)
--- NOTE | 2020-04-21 09:25 | PCM.PROG ---
Attending Provider: ATTENDING PROVIDER: Dr. CRISTINA ORDONEZ DATE OF SERVICE: 04/21/20 SUBJECTIVE: This 69 year old /WHITE F was hospitalized 04/20/20 with atrial fibrillation with rapid ventricular response. The patient was fatigued, tired and short of breath. The patient does not have evidence of CHF. She has increase in her heart rate with little activity with atrial fibrillation. WE will increas e the Cardizem to three times a day and cut down on Clonidine to 0.1mg at night. REVIEW OF SYSTEMS: CONSTITUTIONAL: No night sweats. No fatigue, malaise, lethargy. No fever or chills. HEENT: Eyes: No visual changes. No eye pain. No eye discharge. ENT: No runny nose. No epistaxis. No sinus pain. No odynophagia. No congestion. RESPIRATORY: No cough, no congestion. No hemoptysis. No shortness of breath. CARDIOVASCULAR: No angina symptoms. No CHF symptoms. No atypical chest pain for CAD. No palpitations. No orthopnea.. GASTROINTESTINAL: No abdominal pain. No nausea or vomiting. No diarrhea or constipation. No hematemesis. No hematochezia. GENITOURINARY: No urgency. No frequency. No dysuria. No hematuria. No obstructive symptoms. No discharge. No pain. No significant abnormal bleeding. MUSCULOSKELETAL: No musculoskeletal pain; no joint swelling. NEUROLOGICAL: Awake, alert, oriented to time, place and person. No headache. No neck pain. No syncope. No seizures. No dizziness. PSYCHIATRIC: Not anxious. No depression. No suicidal thoughts. No homicidal thoughts. SKIN: No rash. No lesions. No wounds. ENDOCRINE: No unexplained weight loss. No weight gain. HEMATOLOGIC/LYMPHATIC: No anemia. No purpura. No petechiae. No prolonged or excessive bleeding. No palpable lymph nodes. PHYSICAL EXAMINATION: GENERAL: The patient is awake, alert and oriented, lying in bed in no distress. VITAL SIGNS: Temperature 97.5 F, Pulse 88, Respiratory Rate 18, BP 131/86, Pulse Ox 96% HEENT: Head normocephalic, atraumatic. Eyes: Extraocular muscles are intact. Pupils are equal, round and reactive to light and accommodation. Ears: No lesions. Nose appeared normal. Throat: No exudate or erythema. NECK: Supple. No JVD, no carotid bruit. No lymphadenopathy or thyromegaly. LUNGS: Clear to auscultation. Percussion note normal. Chest symmetrical. HEART: S1, S2, no S3. No murmurs. No cyanosis or clubbing. No ascites. Pulses: Dorsalis pedis and posterior tibial pulses +1 to +2 both sides. ABDOMEN: Soft. Non-tender. Bowel sounds active. No CVA tenderness. No mass felt. EXTREMITIES: No edema. Full range of motion of all extremities, equal. NEUROLOGIC: No focal deficit. Cranial nerves II through XII are grossly intact. No headache, no double vision or headache. SKIN: Warm and dry. Intact. Turgor-normal. LYMPHATIC: No palpable lymph nodes/no lymphedema. MUSCULOSKELETAL: Normal joints with no swelling. Muscle tone is normal. LAB REVIEW: 04/20/20 10:49 04/20/20 10:49 04/20/20 11:00: Urine Color Yellow, Urine Clarity Cloudy, Urine pH 7.0, Ur Specific [place] 1.020, Urine Protein 1+ H, Urine Glucose (UA) Negative, Urine Ketones Negative, Urine Blood 2+ H, Urine Nitrite Negative, Urine Bilirubin Negative, Urine Urobilinogen 1.0 H, Ur Leukocyte Esterase 2+ H, Urine Microscopic RBC 2-5, Urine Microscopic WBC 50-100, Ur Squamous Epith Cells 0-2, Urine Bacteria 4+ 04/20/20 10:49: POC Venous Troponin I < 0.01 04/20/20 10:49: NT-Pro-B Natriuret Pep 5320.000 H 04/20/20 10:49: ESR 6 04/20/20 10:49: Procalcitonin < 0.05 04/20/20 10:49: PT 14.1 H, INR 1.47, APTT 30.2 04/20/20 10:49: Sodium 136.5, Potassium 3.01 L, Chloride 102.7, Carbon Dioxide 24.7, Anion Gap 12.11, BUN 8.3, Creatinine 0.73, Estimated GFR (MDRD) 79.00, BUN/Creatinine Ratio 11.36, Glucose 126.5 H, Calcium 9.49, Magnesium 1.81, Total Bilirubin 1.07, AST 25.2, ALT 33.2, Alkaline Phosphatase 90.5, Total Creatine Kinase 23.7 L, Troponin I < 0.012, Total Protein 6.16 L, Albumin 3.86, Globulin 2.30, Albumin/Globulin Ratio 1.67 04/20/20 10:49: WBC 8.65, RBC 4.41, Hgb 13.6, Hct 40.8, MCV 92.5, MCH 30.8, MCHC 33.3, RDW Coeff of Zahraa 14.5, Plt Count 338, Immature Gran % (Auto) 0.2, Neut % (Auto) 74.1, Lymph % (Auto) 18.0, [place] % (Auto) 6.9, Eos % (Auto) 0.6, Baso % (Auto) 0.2, Neut # (Auto) 6.4, Lymph # (Auto) 1.6, [place] # (Auto) 0.6, Eos # (Auto) 0.1, Baso # (Auto) 0.0, Immature Gran # (Auto) 0.0 04/20/20 10:30: Puncture Site R rad, O2 Saturation 95.5, ABG pH 7.50 H, ABG pCO2 33.0 L, ABG pO2 71.0 L, ABG HCO3 25.7, ABG Total CO2 26.7, ABG Base Excess 2.5 H , Tee Test +, FiO2 % 21.0 LABS PENDING TODAY. ASSESSMENT: Please see below. 1. Atrial fibrillation with rapid ventricular response with little exertion. 2. History of hypertension 3. Hypokalemia PLAN: 1. The patient is on Potassium supplements. 2. Change to medications as above 3. Refer to acid maker, Dr. Paris Plan and coordination of the patient's care discussed in the presence of Meter Reader Inspector and nurse. EDUCATION: The patient has agreed now to be seen by Dr. Paris all these years she had declined any further evaluation by acid maker. The patient is on Eliquis education about side effects was carried out including GI bleed and intracranial bleed, no non-steroidal anti-inflammatory medications with Eliquis. SCRIBED BY: Wilver BAY scribed while in presence of service performed by Dr. CRISTINA ORDONEZ on 04/21/20 ([id number])
[2020-04-21 09:36] LABS: BASOPHILS % (AUTO) 0.1 % (0.0-3.0); HEMOGLOBIN 13.4 g/dl (12.0-16.0); IMMATURE GRANULOCYTE % (AUTO) 0.4 % (0.0-5.0); LYMPHOCYTES # (AUTO) 0.8 K/uL (0.60-3.4); LYMPHOCYTES % (AUTO) 7.7 (10.0-50.0); MEAN CORPUSCULAR HEMOGLOBIN 30.9 pg (27.0-31.0); MEAN CORPUSCULAR HGB CONC 33.5 (31.8-35.4); MEAN CORPUSCULAR VOLUME 92.4 fl (81.0-99.0); MONOCYTES # (AUTO) 0.3 K/uL (0.4-2.0); MONOCYTES % (AUTO) 2.9 (0-10); NEUTROPHILS # (AUTO) 9.3 K/ul (2.0-6.9); NEUTROPHILS % (AUTO) 88.9 % (42.2-75.2); PLATELET COUNT 334 10^3/uL (140-440); RDW COEFFICIENT OF VARIATION 14.3 % (11.6-14.8); RED BLOOD COUNT 4.33 10^6/ul (4.20-5.40); WHITE BLOOD COUNT 10.46 K/ul (4.6-10.2)
[2020-04-21 09:43] LABS: ALANINE AMINOTRANSFERASE 29.5 U/L (0-35); ALBUMIN 4.01 g/dL (3.5-5.0); ALKALINE PHOSPHATASE 91.9 U/L (53-141); BILIRUBIN,TOTAL 0.77 mg/dL (0.2-1.3); BLOOD UREA NITROGEN 10.3 mg/dL (7-17); CALCIUM 9.68 mg/dL (8.4-10.2); CARBON DIOXIDE 24.3 mmol/L (22-30.0); CHLORIDE 101.1 mmol/L (98-107); CREATININE 0.66 mg/dL (0.60-1.30); GLUCOSE 186.5 mg/dL (74-106); POTASSIUM 3.77 mmol/L (3.5-5.1); SODIUM 134.6 mmol/L (134.5-145); TOTAL PROTEIN 6.48 g/dL (6.3-8.2)
[2020-04-21] MEDS: DEXTROSE 5%-1/2NS IV SOLUTION 1,000 ML IV SCH ×2 (14:05→15:38)
[2020-04-21] MEDS ORDERED: MILK OF MAGNESIA PO STA (20:05)
[2020-04-21] MEDS: LIPITOR PO SCH (20:36)
[2020-04-21] MEDS: PAXIL PO SCH (20:36)
[2020-04-21] MEDS: CATAPRES PO SCH (20:37)
[2020-04-22 04:32] LABS: BASOPHILS % (AUTO) 0.1 % (0.0-3.0); EOSINOPHILS % (AUTO) 0.1 % (0.0-7.0); HEMATOCRIT 34.9 % (37.0-47.0); HEMOGLOBIN 11.6 g/dl (12.0-16.0); IMMATURE GRANULOCYTE # (AUTO) 0.1 (0.0-1.0); IMMATURE GRANULOCYTE % (AUTO) 0.4 % (0.0-5.0); LYMPHOCYTES # (AUTO) 1.4 K/uL (0.60-3.4); LYMPHOCYTES % (AUTO) 8.7 (10.0-50.0); MEAN CORPUSCULAR HEMOGLOBIN 30.9 pg (27.0-31.0); MEAN CORPUSCULAR HGB CONC 33.2 (31.8-35.4); MEAN CORPUSCULAR VOLUME 93.1 fl (81.0-99.0); MONOCYTES # (AUTO) 0.7 K/uL (0.4-2.0); MONOCYTES % (AUTO) 4.3 (0-10); NEUTROPHILS # (AUTO) 13.4 K/ul (2.0-6.9); NEUTROPHILS % (AUTO) 86.4 % (42.2-75.2); PLATELET COUNT 297 10^3/uL (140-440); RDW COEFFICIENT OF VARIATION 14.6 % (11.6-14.8); RED BLOOD COUNT 3.75 10^6/ul (4.20-5.40); WHITE BLOOD COUNT 15.49 K/ul (4.6-10.2)
[2020-04-22 04:45] LABS: ALANINE AMINOTRANSFERASE 25.5 U/L (0-35); ALBUMIN 3.48 g/dL (3.5-5.0); ALKALINE PHOSPHATASE 66.1 U/L (53-141); ASPARTATE AMINO TRANSFERASE 20.7 U/L (14-36); BILIRUBIN,TOTAL 0.47 mg/dL (0.2-1.3); BLOOD UREA NITROGEN 11.2 mg/dL (7-17); CALCIUM 9.16 mg/dL (8.4-10.2); CHLORIDE 103.4 mmol/L (98-107); CREATININE 0.62 mg/dL (0.60-1.30); GLUCOSE 161.5 mg/dL (74-106); POTASSIUM 3.69 mmol/L (3.5-5.1); TOTAL PROTEIN 5.66 g/dL (6.3-8.2)
[2020-04-22] MEDS: PRILOSEC PO SCH ×2 (05:32→16:06)
[2020-04-22] MEDS: DITROPAN PO SCH ×2 (09:28→20:19)
[2020-04-22] MEDS: HYZAAR 50-12.5 MG TAB PO SCH (09:28)
[2020-04-22] MEDS: KLONOPIN PO SCH ×2 (09:28→20:18)
[2020-04-22] MEDS: K-DUR PO SCH ×2 (09:29→16:05)
[2020-04-22] MEDS: ULTRAM PO SCH ×2 (09:29→20:19)
[2020-04-22] MEDS: CARDIZEM PO SCH ×3 (09:29→20:19)
[2020-04-22] MEDS: ELIQUIS PO SCH ×2 (09:31→20:18)
[2020-04-22] MEDS: ROCEPHIN 1 GM/50 ML D5W 1 GM/50 ML BAG IV SCH (10:23)
[2020-04-22] MEDS: AMPICILLIN TRIHYDRATE PO SCH ×3 (10:42→21:17)
[2020-04-22] MEDS ORDERED: TYLENOL PO STA (11:52)
[2020-04-22] MEDS ORDERED: TYLENOL PO PRN (13:04)
[2020-04-22] MEDS: DEXTROSE 5%-1/2NS IV SOLUTION 1,000 ML IV SCH ×2 (14:13→16:39)
[2020-04-22] MEDS: DICLOFENAC SODIUM 1% TP SCH ×2 (16:10→20:16)
[2020-04-22] MEDS ORDERED: NON-FORMULARY MEDICATION TP SCH (18:00)
[2020-04-22] MEDS: PAXIL PO SCH (20:15)
[2020-04-22] MEDS: CATAPRES PO SCH (20:19)
[2020-04-22] MEDS: LIPITOR PO SCH (20:19)
[2020-04-22] MEDS: TYLENOL PO PRN (21:23)
[2020-04-23] MEDS: AMPICILLIN TRIHYDRATE PO SCH ×4 (04:40→21:20)
[2020-04-23] MEDS: PRILOSEC PO SCH ×2 (05:58→16:43)
[2020-04-23 06:52] LABS: BASOPHILS % (AUTO) 0.3 % (0.0-3.0); EOSINOPHILS # (AUTO) 0.1 K/ul (0.0-0.7); EOSINOPHILS % (AUTO) 1.1 % (0.0-7.0); HEMATOCRIT 36.7 % (37.0-47.0); HEMOGLOBIN 12.1 g/dl (12.0-16.0); IMMATURE GRANULOCYTE % (AUTO) 0.3 % (0.0-5.0); LYMPHOCYTES # (AUTO) 2.5 K/uL (0.60-3.4); LYMPHOCYTES % (AUTO) 21.2 (10.0-50.0); MEAN CORPUSCULAR HEMOGLOBIN 30.9 pg (27.0-31.0); MEAN CORPUSCULAR VOLUME 93.9 fl (81.0-99.0); MONOCYTES # (AUTO) 0.9 K/uL (0.4-2.0); MONOCYTES % (AUTO) 7.2 (0-10); NEUTROPHILS # (AUTO) 8.3 K/ul (2.0-6.9); NEUTROPHILS % (AUTO) 69.9 % (42.2-75.2); PLATELET COUNT 289 10^3/uL (140-440); RED BLOOD COUNT 3.91 10^6/ul (4.20-5.40); WHITE BLOOD COUNT 11.82 K/ul (4.6-10.2)
[2020-04-23 07:04] LABS: ALANINE AMINOTRANSFERASE 33.3 U/L (0-35); ALBUMIN 3.61 g/dL (3.5-5.0); ALKALINE PHOSPHATASE 74.6 U/L (53-141); ASPARTATE AMINO TRANSFERASE 26.2 U/L (14-36); BILIRUBIN,TOTAL 0.78 mg/dL (0.2-1.3); BLOOD UREA NITROGEN 11.2 mg/dL (7-17); CALCIUM 9.26 mg/dL (8.4-10.2); CARBON DIOXIDE 25.4 mmol/L (22-30.0); CHLORIDE 101.7 mmol/L (98-107); CREATININE 0.73 mg/dL (0.60-1.30); GLUCOSE 115.5 mg/dL (74-106); POTASSIUM 3.74 mmol/L (3.5-5.1); SODIUM 134.9 mmol/L (134.5-145); TOTAL PROTEIN 5.83 g/dL (6.3-8.2)
[2020-04-23] MEDS: DITROPAN PO SCH ×2 (08:43→20:50)
[2020-04-23] MEDS: ULTRAM PO SCH ×2 (08:43→20:50)
[2020-04-23] MEDS: KLONOPIN PO SCH ×2 (08:43→20:49)
[2020-04-23] MEDS: K-DUR PO SCH ×2 (08:43→16:44)
[2020-04-23] MEDS: CARDIZEM PO SCH ×3 (08:43→20:50)
[2020-04-23] MEDS: HYZAAR 50-12.5 MG TAB PO SCH (08:43)
[2020-04-23] MEDS: ELIQUIS PO SCH ×2 (08:44→20:50)
[2020-04-23] MEDS: DICLOFENAC SODIUM 1% TP SCH ×4 (08:44→20:51)
[2020-04-23] MEDS ORDERED: ROCEPHIN 1 GM/50 ML D5W 1 GM/50 ML BAG IV SCH (09:00)
[2020-04-23] MEDS ORDERED: TORADOL IM ONE (12:21)
[2020-04-23] MEDS ORDERED: DECADRON 4 MG/ML SDV IM ONE (12:22)
[2020-04-23] MEDS: TYLENOL PO PRN (17:01)
[2020-04-23] MEDS: ENTRESTO 24 MG-26 MG TABLET PO SCH (20:49)
[2020-04-23] MEDS: CATAPRES PO SCH (20:49)
[2020-04-23] MEDS: LIPITOR PO SCH (20:49)
[2020-04-23] MEDS: PAXIL PO SCH (20:50)
[2020-04-24 04:54] LABS: BASOPHILS % (AUTO) 0.2 % (0.0-3.0); EOSINOPHILS % (AUTO) 0.1 % (0.0-7.0); HEMATOCRIT 36.7 % (37.0-47.0); HEMOGLOBIN 12.3 g/dl (12.0-16.0); IMMATURE GRANULOCYTE % (AUTO) 0.2 % (0.0-5.0); LYMPHOCYTES % (AUTO) 11.7 (10.0-50.0); MEAN CORPUSCULAR HEMOGLOBIN 31.1 pg (27.0-31.0); MEAN CORPUSCULAR HGB CONC 33.5 (31.8-35.4); MEAN CORPUSCULAR VOLUME 92.7 fl (81.0-99.0); MONOCYTES # (AUTO) 0.4 K/uL (0.4-2.0); MONOCYTES % (AUTO) 4.8 (0-10); NEUTROPHILS # (AUTO) 6.9 K/ul (2.0-6.9); PLATELET COUNT 300 10^3/uL (140-440); RDW COEFFICIENT OF VARIATION 14.6 % (11.6-14.8); RED BLOOD COUNT 3.96 10^6/ul (4.20-5.40); WHITE BLOOD COUNT 8.32 K/ul (4.6-10.2)
[2020-04-24 05:10] LABS: ALANINE AMINOTRANSFERASE 35.8 U/L (0-35); ALBUMIN 3.35 g/dL (3.5-5.0); ALKALINE PHOSPHATASE 77.5 U/L (53-141); ASPARTATE AMINO TRANSFERASE 24.4 U/L (14-36); BILIRUBIN,TOTAL 0.96 mg/dL (0.2-1.3); BLOOD UREA NITROGEN 8.7 mg/dL (7-17); CALCIUM 9.04 mg/dL (8.4-10.2); CARBON DIOXIDE 26.7 mmol/L (22-30.0); CHLORIDE 101.9 mmol/L (98-107); CREATININE 0.56 mg/dL (0.60-1.30); GLUCOSE 137.4 mg/dL (74-106); POTASSIUM 3.53 mmol/L (3.5-5.1); SODIUM 134.4 mmol/L (134.5-145); TOTAL PROTEIN 5.6 g/dL (6.3-8.2)
[2020-04-24] MEDS: PRILOSEC PO SCH ×2 (05:50→16:44)
[2020-04-24] MEDS: AMPICILLIN TRIHYDRATE PO SCH ×5 (05:50→21:36)
[2020-04-24] MEDS ORDERED: K-DUR PO ONE (08:11)
[2020-04-24] MEDS: DITROPAN PO SCH ×2 (08:41→21:36)
[2020-04-24] MEDS: K-DUR PO SCH (08:41)
[2020-04-24] MEDS: CARDIZEM PO SCH ×2 (08:41→21:36)
[2020-04-24] MEDS: ENTRESTO 24 MG-26 MG TABLET PO SCH ×2 (08:41→21:36)
[2020-04-24] MEDS: KLONOPIN PO SCH ×2 (08:41→21:36)
[2020-04-24] MEDS: ULTRAM PO SCH ×2 (08:41→21:36)
[2020-04-24] MEDS: DICLOFENAC SODIUM 1% TP SCH ×4 (08:42→21:35)
[2020-04-24] MEDS: ELIQUIS PO SCH ×2 (08:45→21:37)
--- NOTE | 2020-04-24 08:54 | PCM.PROG ---
Attending Provider: ATTENDING PROVIDER: Dr. CRISTINA ORDONEZ This patient is seen with Lisa Swift, Nurse Practitioner. DATE OF SERVICE: 04/24/20 SUBJECTIVE: This 69 year old /WHITE F was hospitalized 04/20/20. The patient is resting comfortably. She is still short of breath with exertion and some weakness. Blood pressure is low. She was started on Entresto last night. REVIEW OF SYSTEMS: CONSTITUTIONAL: No night sweats. No fatigue, malaise, lethargy. No fever or chil ls. Weakness. HEENT: Eyes: No visual changes. No eye pain. No eye discharge. ENT: No runny nose. No epistaxis. No sinus pain. No odynophagia. No congestion. RESPIRATORY: No cough, no congestion. No hemoptysis. Shortness of breath. CARDIOVASCULAR: No angina symptoms. No CHF symptoms. No atypical chest pain for CAD. No palpitations. No orthopnea.. GASTROINTESTINAL: No abdominal pain. No nausea or vomiting. No diarrhea or constipation. No hematemesis. No hematochezia. GENITOURINARY: No urgency. No frequency. No dysuria. No hematuria. No obstructive symptoms. No discharge. No pain. No significant abnormal bleeding. MUSCULOSKELETAL: No musculoskeletal pain; no joint swelling. NEUROLOGICAL: Awake, alert, oriented to time, place and person. No headache. No neck pain. No syncope. No seizures. No dizziness. PSYCHIATRIC: Not anxious. No depression. No suicidal thoughts. No homicidal thoughts. SKIN: No rash. No lesions. No wounds. ENDOCRINE: No unexplained weight loss. No weight gain. HEMATOLOGIC/LYMPHATIC: No anemia. No purpura. No petechiae. No prolonged or excessive bleeding. No palpable lymph nodes. PHYSICAL EXAMINATION: GENERAL: The patient is awake, alert and oriented, lying in bed in no distress. VITAL SIGNS: Temperature 97.9 F, Pulse 73, Respiratory Rate 16, BP 109/71, Pulse Ox 98% HEENT: Head normocephalic, atraumatic. Eyes: Extraocular muscles are intact. Pupils are equal, round and reactive to light and accommodation. Ears: No lesions. Nose appeared normal. Throat: No exudate or erythema. NECK: Supple. No JVD, no carotid bruit. No lymphadenopathy or thyromegaly. LUNGS: Diminished breath sounds. Crepitations right lower lobe. Clear to auscultation. Percussion note normal. Chest symmetrical. HEART: S1, S2, no S3. No murmurs. Irregular heart rate. No cyanosis or clubbing. No ascites. Pulses: Dorsalis pedis and posterior tibial pulses +1 to +2 both sides. ABDOMEN: Soft. Non-tender. Bowel sounds active. No CVA tenderness. No mass felt. EXTREMITIES: No edema. Full range of motion of all extremities, equal. NEUROLOGIC: No focal deficit. Cranial nerves II through XII are grossly intact. No headache, no double vision or headache. SKIN: Not dry. Intact. Turgor-normal. LYMPHATIC: No palpable lymph nodes/no lymphedema. MUSCULOSKELETAL: Normal joints with no swelling. Muscle tone is normal. LAB REVIEW: 04/24/20 04:36 04/24/20 04:36 04/24/20 04:36: Sodium 134.4 L, Potassium 3.53, Chloride 101.9, Carbon Dioxide 26.7, Anion Gap 9.33, BUN 8.7, Creatinine 0.56 L, Estimated GFR (MDRD) 107.00, BUN/Creatinine Ratio 15.53, Glucose 137.4 H, Calcium 9.04, Total Bilirubin 0.96, AST 24.4, ALT 35.8 H, Alkaline Phosphatase 77.5, Total Protein 5.60 L, Albumin 3.35 L, Globulin 2.25, Albumin/Globulin Ratio 1.48 04/24/20 04:36: WBC 8.32, RBC 3.96 L, Hgb 12.3, Hct 36.7 L, MCV 92.7, MCH 31.1 H , MCHC 33.5, RDW Coeff of Zahraa 14.6, Plt Count 300, Immature Gran % (Auto) 0.2, [place] % (Auto) 83.0 H, Lymph % (Auto) 11.7, [place] % (Auto) 4.8, Eos % (Auto) 0.1, Baso % (Auto) 0.2, Neut # (Auto) 6.9, Lymph # (Auto) 1.0, [place] # (Auto) 0.4, Eos # (Auto) 0.0, Baso # (Auto) 0.0, Immature Gran # (Auto) 0.0 04/23/20 06:48: TSH 1.760 04/23/20 06:48: Free T4 1.38 ASSESSMENT: Please see below. 1. Shortness of breath improved 2. Dilated cardiomyopathy with ejection fraction of 32%. 3. Atrial fibrillation 4. CHF 5. UTI on ampicillin PLAN: 1. Repeat chest x-ray 2. Decrease Potassium once a day 3. Continue Entresto Plan and coordination of the patient's care discussed in the presence of Outplacement Consultant and nurse. SCRIBED BY: Wilver BAY scribed while in presence of service performed by Dr. Ordonez/Lisa Swift APRN on 04/24/20 ([id number])
--- NOTE | 2020-04-24 10:24 | DI ---
EXAM: Chest two views HISTORY: Shortness of breath FINDINGS / IMPRESSION: Compared to 04/20/2020. Ch[place] is again noted. Tiny bilateral pleural effusions are grossly stable. There is no current v ascular congestion or evidence of active congestive heart failure/fluid overload. It would be diffic ult to exclude mild consolidations in the lung bases, with the pleural fluid present. No pneumothora x.
[2020-04-24] MEDS: COREG PO SCH ×2 (10:37→16:45)
[2020-04-24] MEDS: CATAPRES PO SCH (21:36)
[2020-04-24] MEDS: LIPITOR PO SCH (21:36)
[2020-04-24] MEDS: PAXIL PO SCH (21:37)
[2020-04-24 22:05] VITALS: TEMP 97.6
[2020-04-25] MEDS: AMPICILLIN TRIHYDRATE PO SCH ×2 (04:32→09:55)
[2020-04-25 04:39] LABS: BASOPHILS % (AUTO) 0.2 % (0.0-3.0); EOSINOPHILS # (AUTO) 0.2 K/ul (0.0-0.7); EOSINOPHILS % (AUTO) 2.1 % (0.0-7.0); HEMATOCRIT 36.9 % (37.0-47.0); HEMOGLOBIN 12.2 g/dl (12.0-16.0); IMMATURE GRANULOCYTE % (AUTO) 0.2 % (0.0-5.0); LYMPHOCYTES # (AUTO) 2.2 K/uL (0.60-3.4); LYMPHOCYTES % (AUTO) 23.5 (10.0-50.0); MEAN CORPUSCULAR HEMOGLOBIN 31.2 pg (27.0-31.0); MEAN CORPUSCULAR HGB CONC 33.1 (31.8-35.4); MEAN CORPUSCULAR VOLUME 94.4 fl (81.0-99.0); MONOCYTES # (AUTO) 0.7 K/uL (0.4-2.0); MONOCYTES % (AUTO) 7.2 (0-10); NEUTROPHILS # (AUTO) 6.2 K/ul (2.0-6.9); NEUTROPHILS % (AUTO) 66.8 % (42.2-75.2); PLATELET COUNT 288 10^3/uL (140-440); RDW COEFFICIENT OF VARIATION 14.9 % (11.6-14.8); RED BLOOD COUNT 3.91 10^6/ul (4.20-5.40)
[2020-04-25 04:52] LABS: ALANINE AMINOTRANSFERASE 33.4 U/L (0-35); ALBUMIN 3.33 g/dL (3.5-5.0); ALKALINE PHOSPHATASE 66.6 U/L (53-141); ASPARTATE AMINO TRANSFERASE 31.3 U/L (14-36); BILIRUBIN,TOTAL 0.65 mg/dL (0.2-1.3); BLOOD UREA NITROGEN 11.8 mg/dL (7-17); CALCIUM 8.97 mg/dL (8.4-10.2); CARBON DIOXIDE 27.1 mmol/L (22-30.0); CHLORIDE 104.4 mmol/L (98-107); CREATININE 0.64 mg/dL (0.60-1.30); GLUCOSE 123.3 mg/dL (74-106); POTASSIUM 3.91 mmol/L (3.5-5.1); SODIUM 136.3 mmol/L (134.5-145); TOTAL PROTEIN 5.49 g/dL (6.3-8.2)
[2020-04-25 05:58] VITALS: BP 125/87
[2020-04-25] MEDS: PRILOSEC PO SCH (05:58)
[2020-04-25] MEDS: COREG PO SCH (08:22)
[2020-04-25] MEDS: K-DUR PO SCH (08:23)
[2020-04-25] MEDS: CARDIZEM PO SCH (08:23)
[2020-04-25] MEDS: KLONOPIN PO SCH (08:23)
[2020-04-25] MEDS: ENTRESTO 24 MG-26 MG TABLET PO SCH (08:23)
[2020-04-25] MEDS: ULTRAM PO SCH (08:23)
[2020-04-25] MEDS: DITROPAN PO SCH (08:23)
[2020-04-25] MEDS: DICLOFENAC SODIUM 1% TP SCH ×2 (08:24→08:30)
[2020-04-25] MEDS: ELIQUIS PO SCH (08:25)
--- NOTE | 2020-04-25 09:32 | PCM.PROG ---
Attending Provider: ATTENDING PROVIDER: Dr. CRISTINA ORDONEZ This patient is seen with Lisa Swift, Nurse Practitioner. DATE OF SERVICE: 04/25/20 SUBJECTIVE: This 69 year old /WHITE F was hospitalized 04/20/20. The patient is resting comfortably. Shortness of breath has improved. Heart rate has been more steady with addition of Coreg. She is still wearing O2. We will do three step O2 prior to discharge. The patient is adamant about leaving today. REVIEW OF SYSTEMS: CONSTITUTIONAL: No night sweats. No fatigue, malaise, lethargy. No fever or chills. Weakness. HEENT: Eyes: No visual changes. No eye pain. No eye discharge. ENT: No runny nose. No epistaxis. No sinus pain. No odynophagia. No congestion. RESPIRATORY: No cough, no congestion. No hemoptysis. Shortness of breath. CARDIOVASCULAR: No angina symptoms. No CHF symptoms. No atypical chest pain for CAD. No palpitations. No orthopnea.. GASTROINTESTINAL: No abdominal pain. No nausea or vomiting. No diarrhea or constipation. No hematemesis. No hematochezia. GENITOURINARY: No urgency. No frequency. No dysuria. No hematuria. No obstructive symptoms. No discharge. No pain. No significant abnormal bleeding. MUSCULOSKELETAL: No musculoskeletal pain; no joint swelling. NEUROLOGICAL: Awake, alert, oriented to time, place and person. No headache. No neck pain. No syncope. No seizures. No dizziness. PSYCHIATRIC: Not anxious. No depression. No suicidal thoughts. No homicidal thoughts. SKIN: No rash. No lesions. No wounds. ENDOCRINE: No unexplained weight loss. No weight gain. HEMATOLOGIC/LYMPHATIC: No anemia. No purpura. No petechiae. No prolonged or excessive bleeding. No palpable lymph nodes. PHYSICAL EXAMINATION: GENERAL: The patient is awake, alert and oriented, sitting in bed in no distress. VITAL SIGNS: Temperature 97.6 F, Pulse 93, Respiratory Rate 16, BP 125/87, Pulse Ox 95% HEENT: Head normocephalic, atraumatic. Eyes: Extraocular muscles are intact. Pupils are equal, round and reactive to light and accommodation. Ears: No lesions. Nose appeared normal. Throat: No exudate or erythema. NECK: Supple. No JVD, no carotid bruit. No lymphadenopathy or thyromegaly. LUNGS: Diminished breath sounds. Clear to auscultation. Percussion note normal. Chest symmetrical. HEART: S1, S2, no S3. No murmurs. Irregular heart rate. No cyanosis or clubbing. No ascites. Pulses: Dorsalis pedis and posterior tibial pulses +1 to +2 both sides. ABDOMEN: Soft. Non-tender. Bowel sounds active. No CVA tenderness. No mass felt. EXTREMITIES: No edema. Full range of motion of all extremities, equal. NEUROLOGIC: No focal deficit. Cranial nerves II through XII are grossly intact. No headache, no double vision or headache. SKIN: Not dry. Intact. Turgor-normal. LYMPHATIC: No palpable lymph nodes/no lymphedema. MUSCULOSKELETAL: Normal joints with no swelling. Muscle tone is normal. LAB REVIEW: 04/25/20 04:20 04/25/20 04:20 04/25/20 04:20: Sodium 136.3, Potassium 3.91, Chloride 104.4, Carbon Dioxide 27.1, Anion Gap 8.71, BUN 11.8, Creatinine 0.64, Estimated GFR (MDRD) 91.00, BUN/Creatinine Ratio 18.43, Glucose 123.3 H, Calcium 8.97, Total Bilirubin 0.65, AST 31.3, ALT 33.4, Alkaline Phosphatase 66.6, Total Protein 5.49 L, Albumin 3.33 L, Globulin 2.16, Albumin/Globulin Ratio 1.54 04/25/20 04:20: WBC 9.20, RBC 3.91 L, Hgb 12.2, Hct 36.9 L, MCV 94.4, MCH 31.2 H , MCHC 33.1, RDW Coeff of [place] 14.9 H, Plt Count 288, Immature Gran % (Auto) 0.2, Neut % (Auto) 66.8, Lymph % (Auto) 23.5, [place] % (Auto) 7.2, Eos % (Auto) 2.1, Baso % (Auto) 0.2, Neut # (Auto) 6.2, Lymph # (Auto) 2.2, [place] # (Auto) 0.7, Eos # (Auto) 0.2, Baso # (Auto) 0.0, Immature Gran # (Auto) 0.0 ASSESSMENT: Please see below. 1. Shortness of breath improved 2. Dilated cardiomyopathy 3. Atrial fibrillation 4. Hypokalemia, resolved 5. UTI PLAN: 1. Three step O2 prior to discharge 2. Discharge home today 3. Followup next week in the office 4. Ampicillin 500mg TID for 5 days 5. Continue Entresto 6. Continue Coreg and Cardizem 7. Medication changes will be review with the patient 8. Risks of bleeding with Eliquis has been discussed. Advised no NSAIDS. Entresto risk versus benefits discussed with the patient. Plan and coordination of the patient's care discussed in the presence of Rat Poisoner and nurse. SCRIBED BY: Wilver BAY scribed while in presence of service performed by Dr. Ordonez/Lisa Swift APRN on 04/25/20 ([id number])
--- NOTE | 2020-04-25 10:21 | CM.DICTOOL ---
ADMISSION: 04/20/20 12:35 DISCHARGE: APRIL 25, 2020 DATE OF SERVICE: 04/25/20 FINAL DIAGNOSIS DILATED CARDIOMYOPATHY WITH EJECTION FRACTION OF 32% ATRIAL FIBRILLATION WITH RVR (ON ELIQUIS) CHF UTI ON AMPICILLIN MODERATE MITRAL REGURGITATION HX: CHRONIC ANEMIA HYPERTENSION DYSLIPIDEMIA COPD/ASTHMA PNEUMONIA CAD WITH LAD 50% 2014, DR. ALVES CHF PREDIABETIC DILATED CARDIOMYOPATHY HISTORY OF LEFT BUNDLE BRANCH BLOCK CANCER, LEFT BREAST DJD DEPRESSION PROCEDURES AND SURGICAL: HEART CATH, 2014 LEFT MASTECTOMY, 2006 PFT 05/2019: INSUFFICIENT DATA FOR INTERPRETATION LAST VITALS Temp Pulse Resp BP Pulse Ox 97.6 F 93 H 16 125/87 96 04/25/20 05:53 04/25/20 05:53 04/25/20 05:53 04/25/20 05:53 04/25/20 08:53 TAKE THESE MEDICATIONS AT HOME Albuterol Sulfate (Albuterol Sulfate (Ventolin Hfa) 18 Gm 1 Puff With Spacer) 2 puff IH Q6H PRN PRN Reason: BRONCOSPASMS Ampicillin (Ampicillin Trihydrate 500 Mg Capsule) 500 mg PO TID X 5 MORE DAYS -- ( NEW) Stop: 04/27/20 23:59 Last Admin: 04/25/20 04:32 Dose: 500 mg Documented by: Apixaban (Apixaban 5 Mg Tab) 5 mg PO BID [facility] Last Admin: 04/25/20 08:25 Dose: 5 mg Documented by: Atorvastatin Calcium (Atorvastatin Calcium 20 Mg Tablet) 40 mg PO BEDTIME [facility] Last Admin: 04/24/20 21:36 Dose: 40 mg Documented by: Carvedilol (Carvedilol 6.25 Mg Tablet) 6.25 mg PO BIDWM [facility] -- (NEW) Last Admin: 04/25/20 08:22 Dose: 6.25 mg Documented by: Clonazepam (Clonazepam 0.5 Mg Tablet) 0.5 mg PO BID [facility] Last Admin: 04/25/20 08:23 Dose: 0.5 mg Documented by: Clonidine (Clonidine Hcl 0.1 Mg Tablet) 0.1 mg PO BEDTIME [facility] -- ( CHANGED) Last Admin: 04/24/20 21:36 Dose: 0.1 mg Documented by: Diltiazem HCl (Diltiazem Hcl 60 Mg Tablet) 60 mg PO BID [facility] Last Admin: 04/25/20 08:23 Dose: 60 mg Documented by: Non-Formulary Medication (Diclofenac Sodium) 2 gm TP QID [facility] Last Admin: 04/25/20 08:30 Dose: Not Given Documented by: Omeprazole (Omeprazole 20 Mg Capsule.Dr) 20 mg PO BIDAC [facility] Last Admin: 04/25/20 05:58 Dose: 20 mg Documented by: Oxybutynin Chloride (Oxybutynin Chloride 5 Mg Tablet) 5 mg PO BID [facility] Last Admin: 04/25/20 08:23 Dose: 5 mg Documented by: Paroxetine HCl (Paroxetine Hcl 20 Mg Tablet) 30 mg PO BEDTIME [facility] Last Admin: 04/24/20 21:37 Dose: 30 mg Documented by: Sacubitril/Valsartan (Sacubitril/Valsartan 1 Each Tablet) 1 each PO BID [facility] -- ( NEW) Last Admin: 04/25/20 08:23 Dose: 1 each Documented by: Tramadol HCl (Tramadol Hcl 50 Mg Tablet) 50 mg PO BID [facility] Last Admin: 04/25/20 08:23 Dose: 50 mg Documented by: ALLERGIES amlodipine besylate [From [facility]] Adverse Reaction (Mild, Verified 04/20/20 10:09) worsening HTN verapamil Adverse Reaction (Mild, Verified 04/20/20 10:09) worsening HTN DISCONTINUED MEDICATIONS 1). HYZAAR 2). DECREASED CLONIDINE NEW PRESCRIPTIONS: 1). AMPICILLIN 500 MG PO TID X 5 MORE DAYS 2). ENTRESTO 24/26 MG PO BID 3). COREG 6.25 MG PO BID 4). REDUCED CLONIDINE TO 01. MG PO @ BEDTIME LAB REVIEW: 04/25/20 04:20 04/25/20 04:20 04/25/20 04:20: Sodium 136.3, Potassium 3.91, Chloride 104.4, Carbon Dioxide 27.1, Anion Gap 8.71, BUN 11.8, Creatinine 0.64, Estimated GFR (MDRD) 91.00, BUN/Creatinine Ratio 18.43, Glucose 123.3 H, Calcium 8.97, Total Bilirubin 0.65, AST 31.3, ALT 33.4, Alkaline Phosphatase 66.6, Total Protein 5.49 L, Albumin 3.33 L, Globulin 2.16, Albumin/Globulin Ratio 1.54 04/25/20 04:20: WBC 9.20, RBC 3.91 L, Hgb 12.2, Hct 36.9 L, MCV 94.4, MCH 31.2 H , MCHC 33.1, RDW Coeff of Zahraa 14.9 H, Plt Count 288, Immature Gran % (Auto) 0.2, Neut % (Auto) 66.8, Lymph % (Auto) 23.5, [place] % (Auto) 7.2, Eos % (Auto) 2.1, Baso % (Auto) 0.2, Neut # (Auto) 6.2, Lymph # (Auto) 2.2, [place] # (Auto) 0.7, Eos # (Auto) 0.2, Baso # (Auto) 0.0, Immature Gran # (Auto) 0.0 PLAN: DISCHARGE TODAY: HOME INDEPENDENTLY, LIVES WITH . ACTIVITY: UP TOLERATED, NO STRENUOUS ACTIVITY FREQUENT REST PERIODS DIET: HEART HEALTHY DOCTOR FOLLOW UP: 1). SEE DR. ORDONEZ/ MARLA ALMAGUER APRN/ ERINN LIZ APRN IN THE OFFICE ON 2019 @ 9:00 AM. CALL [phone] IF ANY QUESTIONS OR CONCERNS. 2). DR. ELTON RUSHING II, ORNAMENTAL METALWORK DESIGNER OFFICE. [facility]. APPOINTMENT FOR MAY 25, 2020 @ 1 PM. [address] , [address], [facility]. PHONE # [phone]. CODE STATUS: FULL CODE MRS CONWAY HAS REMAINED ALERT AND ORIENTED X 4. LUNGS REMAINED CLEAR. NO COUGH. 3 STEP PERFORMED AND DID NOT QUALIFY FOR HOME OXYGEN. WITH BRIEF WALKS TO BATHROOM HER HEART RATE INCREASES INTO THE 100-110. WITH FARTHER WALKS UP TO 150 AND WITH SHORTNESS OF BREATH. SHE RECOVERS WELL AND NO CHEST PAIN OF NOW. SKIN WARM AND DRY AND INTACT. CONTINENT OF BOWEL AND BLADDER WITH LAST BM 04/23. CONTINUE TO TREAT FOR UTI- ENTERCOCUS FAECALIS WITH NO SYMPTOMS. WITH HUSBANDS ASSIST SHE IS INDEPENDENT AT HOME. UP TOLERATED, STEADY. MD MARLA REED, DECK SPECIALISTIsaura LIZ, DECK SPECIALIST
--- NOTE | 2020-04-25 11:10 | PN ---
DATE OF SERVICE: 04/22/20 SUBJECTIVE: 69-year-old white female hospitalized with shortness of breath. The patient's Covid is negative. The patient has atrial fibrillation with rapid ventricular response with mild hypokalemia. The patient is feeling somewhat better but she is still short of breath with minimal exertion. According to her the appetite is improved and she is less anxious. The patient has multiple medical psychosomatic issues. REVIEW OF SYSTEMS: CONSTITUTIONAL: No night sweats. No fatigue, malaise, lethargy. No fever or chills. HEENT: Eyes: No visual changes. No eye pain. No eye discharge. ENT: No runny nose. No epistaxis. No sinus pain. No sore throat. No odynophagia. No congestion. RESPIRATORY: No cough, no congestion. No hemoptysis. No shortness of breath. CARDIOVASCULAR: No angina symptoms. No CHF symptoms. No atypical chest pain for CAD. No palpitations. No PND. No orthopnea. GASTROINTESTINAL: No abdominal pain. No nausea or vomiting. No diarrhea or constipation. No hematemesis. No hematochezia. GENITOURINARY: No urgency. No frequency. No dysuria. No hematuria. No obstructive symptoms. No discharge. No pain. No significant abnormal bleeding. MUSCULOSKELETAL: No musculoskeletal pain; no joint swelling. NEUROLOGICAL: No headache. No neck pain. No syncope. No seizures. No dizziness. PSYCHIATRIC: Not anxious. No depression. No suicidal thoughts. No homicidal thoughts. SKIN: No rash. No lesions. No wounds. ENDOCRINE: No unexplained weight loss. No weight gain. HEMATOLOGIC/LYMPHATIC: No anemia. No purpura. No petechiae. No prolonged or excessive bleeding. No palpable lymph nodes. PHYSICAL EXAMINATION: VITAL SIGNS: Temperature 97.7, pulse 75, respiratory rate 20, BP 121/77, pulse ox 99%. HEENT: Head normocephalic, atraumatic. Eyes: Extraocular muscles are intact. Pupils are equal, round and reactive to light and accommodation. Ears: No lesions. Nose appeared normal. Throat: No exudate or erythema. NECK: Supple. No JVD, no carotid bruit. No lymphadenopathy or thyromegaly. LUNGS: Decreased breath sounds but clear to auscultation. Percussion note normal. Chest symmetrical. HEART: S1, S2, no S3. No murmurs. No cyanosis or clubbing. No ascites. Pulses: Dorsalis pedis and posterior tibial pulses +1 to +2 bilaterally. ABDOMEN: Soft. Nontender. Bowel sounds active. No CVA tenderness. No mass felt. EXTREMITIES: No edema. Full range of motion of all extremities, equal. NEUROLOGIC: No focal deficit. Cranial nerves II through XII are grossly intact. No headache, no double vision or headache. SKIN: Not dry. Intact. Turgor - normal. LYMPHATIC: No palpable lymph nodes/no lymphedema. MUSCULOSKELETAL: Normal joints with no swelling. Muscle tone is normal. LABS: Hemoglobin 11.6, hematocrit 34, WBC 15,000, normal differential. Creatinine 0.6, BUN 11, potassium 3.6. The patient's UA grew Enterococcus Faecalis. ASSESSMENT: 1. Atrial fibrillation with rapid ventricular response. 2. Dilated cardiomyopathy. 3. Hypertension. 4. History of UTI. 5. CA of the breast. 6. Dyslipidemia. 7. Hypertension. PLAN: 1. Cardizem 60 mg t.i.d., control the heart rate better. 2. Will do echocardiogram to evaluate LV function. 3. UA culture and sensitivity reviewed. The patient has Enterococcus Faecalis sensitive to Ampicillin, keep on Ampicillin and discontinue Rocephin. 4. Explained about all her diagnosis and she has agreed to have further evaluation by ceramics instructor. CONDITION: Stable. TIME SPENT: More than 30 minutes. Plan and coordination of the patient's care discussed in the presence of nurse. EVELIN
--- NOTE | 2020-04-25 11:55 | PN ---
DATE OF SERVICE: 04/23/20 SUBJECTIVE: 69-year-old white female hospitalized with atrial fibrillation, hypokalemia. The patient's hypokalemia has resolved. Atrial fibrillation seems to be under control. She has less palpitation, feeling somewhat better. REVIEW OF SYSTEMS: CONSTITUTIONAL: No night sweats. No fatigue, malaise, lethargy. No fever or chills. HEENT: Eyes: No visual changes. No eye pain. No eye discharge. ENT: No runny nose. No epistaxis. No sinus pain. No sore throat. No odynophagia. No congestion. RESPIRATORY: No cough, no congestion. No hemoptysis. No shortness of breath. CARDIOVASCULAR: No angina symptoms. No CHF symptoms. No atypical chest pain for CAD. No palpitations. No PND. No orthopnea. GASTROINTESTINAL: No abdominal pain. No nausea or vomiting. No diarrhea or constipation. No hematemesis. No hematochezia. GENITOURINARY: No urgency. No frequency. No dysuria. No hematuria. No obstructive symptoms. No discharge. No pain. No significant abnormal bleeding. MUSCULOSKELETAL: No musculoskeletal pain; no joint swelling. NEUROLOGICAL: No headache. No neck pain. No syncope. No seizures. No dizziness. PSYCHIATRIC: Not anxious. No depression. No suicidal thoughts. No homicidal thoughts. SKIN: No rash. No lesions. No wounds. ENDOCRINE: No unexplained weight loss. No weight gain. HEMATOLOGIC/LYMPHATIC: No anemia. No purpura. No petechiae. No prolonged or excessive bleeding. No palpable lymph nodes. PHYSICAL EXAMINATION: VITAL SIGNS: Temperature 97.6, pulse 70, respiratory rate 19, blood pressure 135/87, pulse ox 94% on room air. HEENT: Head normocephalic, atraumatic. Eyes: Extraocular muscles are intact. Pupils are equal, round and reactive to light and accommodation. Ears: No lesions. Nose appeared normal. Throat: No exudate or erythema. NECK: Supple. No JVD, no carotid bruit. No lymphadenopathy or thyromegaly. LUNGS: Decreased breath sounds but clear to auscultation. Percussion note normal. Chest symmetrical. HEART: S1, S2, no S3. No murmurs. No cyanosis or clubbing. No ascites. Pulses: Dorsalis pedis and posterior tibial pulses +1 to +2 bilaterally. ABDOMEN: Soft. Nontender. Bowel sounds active. No CVA tenderness. No mass felt. EXTREMITIES: No edema. Full range of motion of all extremities, equal. NEUROLOGIC: No focal deficit. Cranial nerves II through XII are grossly intact. No headache, no double vision or headache. SKIN: Not dry. Intact. Turgor - normal. LYMPHATIC: No palpable lymph nodes/no lymphedema. MUSCULOSKELETAL: Normal joints with no swelling. Muscle tone is normal. LABS: Hemoglobin 12.1, hematocrit 36, WBC 11,000, normal differential. Creatinine 0.7, BUN 11, potassium 3.7. The patient's echo showed dilated cardiomyopathy with ejection fraction of 32%. LV size is more than 6 cm. The patient's cardiac status has worsened as far as the echo is concerned since May 2019. The patient is complaining of right shoulder pain, arthritic in type. ASSESSMENT: 1. Dilated cardiomyopathy with poor ejection fraction. 2. Atrial fibrillation. 3. Hypertension. 4. Dyslipidemia. 5. Depression. 6. Generalized osteoarthritis. 7. CA of the left breast. PLAN: 1. T4, TSH. 2. Toradol 30 mg IV. 3. 0.5 cc Decadron. 4. Discontinue Losartan HCTZ. The patient is on Entresto 24-26 twice a day. Instead of Cardizem we may go to Coreg. The patient was explained about these findings, explained about dilated cardiomyopathy. The patient also had moderate to severe mitral regurgitation. TIME SPENT: More than 30 minutes. Plan and coordination of the patient's care discussed in the presence of nurse. EVELIN
--- NOTE | 2020-04-25 13:13 | PN ---
DATE OF SERVICE: 04/24/20 SUBJECTIVE: The patient was seen and examined with the nurse practitioner. The patient has severely dilated cardiomyopathy with ejection fraction 30%. She was started on Entresto. Losartan HCTZ has been discontinued. The patient is also going to be started on Coreg twice a day and also Cardizem will be reduced to twice a day. Eventually the patient may stay on Coreg and Cardizem will be taken off. Appointment with Dr. [place]. TIME SPENT: More than 30 minutes. Plan and coordination of the patient's care discussed in the presence of nurse. EVELIN
--- NOTE | 2020-04-25 14:03 | DS ---
DATE OF SERVICE: 04/25/20 FINAL DIAGNOSIS: 1. DILATED CARDIOMYOPATHY WITH EJECTION FRACTION OF 32% 2. ATRIAL FIBRILLATION WITH RVR (ON ELIQUIS) 3. CHF 4. UTI ON AMPICILLIN 5. MODERATE MITRAL REGURGITATION HX: 6. CHRONIC ANEMIA 7. HYPERTENSION 8. DYSLIPIDEMIA 9. COPD/ASTHMA 10. PNEUMONIA 11. CAD WITH LAD 50% 2014, DR. ALVES 12. CHF 13. PREDIABETIC 14. DILATED CARDIOMYOPATHY 15. HISTORY OF LEFT BUNDLE BRANCH BLOCK 16. CANCER, LEFT BREAST 17. DJD 18. DEPRESSION PROCEDURES AND SURGICAL: 19. HEART CATH, 2014 20. LEFT MASTECTOMY, 2006 21. PFT 05/2019: INSUFFICIENT DATA FOR INTERPRETATION LAST VITALS Temp Pulse Resp BP Pulse Ox 97.6 F 93 H 16 125/87 96 04/25/20 05:53 04/25/20 05:53 04/25/20 05:53 04/25/20 05:53 04/25/20 08:53 DISCHARGE INSTRUCTIONS: 1. DISCHARGE TODAY: HOME INDEPENDENTLY, LIVES WITH . 2. DOCTOR FOLLOW UP: SEE DR. BAJWA/MARLA ALMAGUER APRN/ERINN LIZ APRN IN THE OFFICE ON 2019 @ 9:00 AM. CALL [phone] IF ANY QUESTIONS OR CONCERNS. DR. ELTON PARIS II, CONSUMER ATTORNEY OFFICE. [facility]. APPOINTMENT FOR MAY 25, 2020 @ 1 PM. [address], [address], [facility]. PHONE # [phone]. MEDICATIONS AT DISCHARGE: Albuterol Sulfate (Albuterol Sulfate (Ventolin Hfa) 18 Gm 1 Puff With Spacer) 2 puff IH Q6H PRN PRN Reason: BRONCOSPASMS Ampicillin (Ampicillin Trihydrate 500 Mg Capsule) 500 mg PO TID X 5 MORE DAYS -- ( NEW) Stop: 04/27/20 23:59 Last Admin: 04/25/20 04:32 Dose: 500 mg Documented by: Apixaban (Apixaban 5 Mg Tab) 5 mg PO BID [facility] Last Admin: 04/25/20 08:25 Dose: 5 mg Documented by: Atorvastatin Calcium (Atorvastatin Calcium 20 Mg Tablet) 40 mg PO BEDTIME [facility] Last Admin: 04/24/20 21:36 Dose: 40 mg Documented by: Carvedilol (Carvedilol 6.25 Mg Tablet) 6.25 mg PO BIDWM [facility] -- (NEW) Last Admin: 04/25/20 08:22 Dose: 6.25 mg Documented by: Clonazepam (Clonazepam 0.5 Mg Tablet) 0.5 mg PO BID [facility] Last Admin: 04/25/20 08:23 Dose: 0.5 mg Documented by: Clonidine (Clonidine Hcl 0.1 Mg Tablet) 0.1 mg PO BEDTIME [facility] -- ( CHANGED) Last Admin: 04/24/20 21:36 Dose: 0.1 mg Documented by: Diltiazem HCl (Diltiazem Hcl 60 Mg Tablet) 60 mg PO BID [facility] Last Admin: 04/25/20 08:23 Dose: 60 mg Documented by: Non-Formulary Medication (Diclofenac Sodium) 2 gm TP QID [facility] Last Admin: 04/25/20 08:30 Dose: Not Given Documented by: Omeprazole (Omeprazole 20 Mg Capsule.Dr) 20 mg PO BIDAC [facility] Last Admin: 04/25/20 05:58 Dose: 20 mg Documented by: Oxybutynin Chloride (Oxybutynin Chloride 5 Mg Tablet) 5 mg PO BID [facility] Last Admin: 04/25/20 08:23 Dose: 5 mg Documented by: Paroxetine HCl (Paroxetine Hcl 20 Mg Tablet) 30 mg PO BEDTIME [facility] Last Admin: 04/24/20 21:37 Dose: 30 mg Documented by: Sacubitril/Valsartan (Sacubitril/Valsartan 1 Each Tablet) 1 each PO BID [facility] -- ( NEW) Last Admin: 04/25/20 08:23 Dose: 1 each Documented by: Tramadol HCl (Tramadol Hcl 50 Mg Tablet) 50 mg PO BID [facility] Last Admin: 04/25/20 08:23 Dose: 50 mg Documented by: NEW PRESCRIPTIONS: AMPICILLIN 500 MG PO TID X 5 MORE DAYS ENTRESTO 24/26 MG PO BID COREG 6.25 MG PO BID REDUCED CLONIDINE TO 01. MG PO @ BEDTIME DISCONTINUED MEDICATIONS: HYZAAR DECREASED CLONIDINE DIET INSTRUCTIONS: HEART HEALTHY ACTIVITY: UP TOLERATED, NO STRENUOUS ACTIVITY FREQUENT REST PERIODS SMOKING: N/A DISEASE SPECIFIC EDUCATION: Followup Medications CHF LAB REVIEW: 04/25/20 04:20: Sodium 136.3, Potassium 3.91, Chloride 104.4, Carbon Dioxide 27.1, Anion Gap 8.71, BUN 11.8, Creatinine 0.64, Estimated GFR (MDRD) 91.00, BUN/Creatinine Ratio 18.43, Glucose 123.3 H, Calcium 8.97, Total Bilirubin 0.65, AST 31.3, ALT 33.4, Alkaline Phosphatase 66.6, Total Protein 5.49 L, Albumin 3.33 L, Globulin 2.16, Albumin/Globulin Ratio 1.54 04/25/20 04:20: WBC 9.20, RBC 3.91 L, Hgb 12.2, Hct 36.9 L, MCV 94.4, MCH 31.2 H, MCHC 33.1, RDW Coeff of Zahraa 14.9 H, Plt Count 288, Immature Gran % (Auto) 0.2, Neut % (Auto) 66.8, Lymph % (Auto) 23.5, Hill % (Auto) 7.2, Eos % (Auto) 2.1, Baso % (Auto) 0.2, Neut # (Auto) 6.2, Lymph # (Auto) 2.2, Hill # (Auto) 0.7, Eos # (Auto) 0.2, Baso # (Auto) 0.0, Immature Gran # (Auto) 0.0 HOSPITAL COURSE: 69-year-old white female presented to the emergency room with hypokalemia, generalized weakness, shortness of breath. She was found to be in atrial fibrillation with RVR. Her atrial fibrillation is not a new finding. She is on Eliquis. She has a history of dilated cardiomyopathy however an echo done by Dr. Bajwa during hospitalization shows significant deterioration of ejection fraction with now an ejection fraction of 32% has declined about 10% within the past year. UA was abnormal, positive for urinary tract infection. She was placed on Rocephin 1 gm IV daily for 3 days then placed on oral Ampicillin. This has improved. Echo also showed that her mitral regurgitation has worsened to moderate. She does have a history of chronic anemia which is stable. Her medications were changed. She was extremely short of breath with exertion and tachycardic. He originally placed her on Cardizem 60 t.i.d. - this was then taken down to b.i.d. and placed on Coreg 6.25 b.i.d. She was also started on Entresto prior to discharge due to her severe dilated cardiomyopathy with a dose of 24-26 mg. Kidney function and potassium levels stayed stable. After the initiation of this drug her Losartan was discontinued. She has tolerated this well. She has agreed to see Dr. Paris the bpm architect for worsening of her atrial fibrillation which has now likely become more persistent due to the deterioration and worsening of her cardiomyopathy. Education has been done on CHF. She has been instructed to weigh daily. Risks and benefits of Entresto have been discussed and the patient understands. Three-step oxygen test was done and she does not require 02 at home. Her appointment with Dr. Paris is set for May 25. She will followup with us in the office next week. She is to continue with Ampicillin 500 mg t.i.d. for the next five days. ABI showed that she was positive for Enterococcus. She is up and about. Shortness of breath has improved although she is still weak with exertion. She lives at home with her and he is able to help. She will call us with any changes. Followup with us next week. TIME SPENT: More than 60 minutes. MTDD
== END 2020-04-25 10:56 | disposition home or self-care (01) | DRG 315 ==
LOC: ED 09:58 → MEDSURG B 12:35 → SCU 12:48 → MEDSURG B 04-21 15:00
PROVIDERS: ADMIT Internal Medicine; ATTEND Internal Medicine
DX: I48.91 Unspecified atrial fibrillation; E87.6 Hypokalemia; I50.9 Heart failure, unspecified; N39.0 Urinary tract infection, site not specified; R05 Cough; F32.9 Major depressive disorder, single episode, unspecified; E78.5 Hyperlipidemia, unspecified; R42 Dizziness and giddiness; I10 Essential (primary) hypertension; I42.9 Cardiomyopathy, unspecified; J44.9 Chronic obstructive pulmonary disease, unspecified; M19.90 Unspecified osteoarthritis, unspecified site; R63.0 Anorexia; E11.9 Type 2 diabetes mellitus without complications